=== PATIENT | female | born 1960 | race Caucasian/White ===

== ENCOUNTER 2016-04-02 11:32 | Emergency (ER) | payer OTHER, MEDICAID ==
--- NOTE | 2016-04-02 11:46 | CPEKG ---
Heart Rate: 80 RR Interval: 750 P-R Interval: 188 QRSD Interval: 92 QT Interval: 400 QTC Interval: 462 P [place]: 53 QRS [place]: 63 T Wave [place]: 23 EKG Severity - NORMAL ECG - EKG Impression: SINUS RHYTHM Electronically Signed By: Cherie Dave 02-Apr-2016 17:29:46
[2016-04-02 11:48] VITALS: RESP 18; TEMP 98.4
[2016-04-02] MEDS ORDERED: MAALOX/LIDO/HYOSC GI COCKTAIL 55 ML BOTTLE PO ONE (12:07)
--- NOTE | 2016-04-02 12:11 | EDPHY ---
H & P HPI/ROS: CHIEF COMPLAINT: Chest pain HISTORY OF PRESENT ILLNESS: 55-year-old female with a history of multiple personality disorder presents with chest pain. She has a history of chest discomfort related to GERD. Last night she ate dinner, and then approximately 30 minutes later she laid down to go to sleep. She experienced her typical GERD symptoms intermittently throughout the night, associated with some difficulty breathing. She also had discomfort related to her ITB band and took some Tylenol. She has no cardiac history. She currently has a prescription waiting for her at the pharmacy for Zantac. REVIEW OF SYSTEMS: Constitutional: No fever, no chills Eyes: No visual changes ENT: No sore throat Respiratory: No cough, no shortness of breath Cardiac: No chest pain Gastrointestinal: no vomiting, no abdominal pain Genitourinary: no dysuria Musculoskeletal: No leg pain or swelling Skin: No rash Neurological: No headache, no weakness Psychiatric: No depression Past Medical/Surgical History: Multiple personality disorder Social History: no recent alcohol Smoking Status: Never smoked Physical Exam: General Appearance: Alert, seems distracted by the multiple personalities Eyes: Pupils equal and round, no conjunctival pallor or injection ENT, Mouth: Mucous membranes moist Neck: Normal inspection Respiratory: left-sided chest wall tenderness, Lungs are clear to auscultation Cardiovascular: Regular rate and rhythm Gastrointestinal: Abdomen is soft and nontender Neurological: A&O, nonfocal exam Skin: Warm and dry, no rash Extremities: Nontender, no pedal edema Psychiatric: Mood and affect normal Constitutional: Initial Vital Signs Temperature (C) 36.9 C 04/02/16 11:32 Heart Rate 83 04/02/16 11:32 Respiratory Rate 18 04/02/16 11:32 Blood Pressure 139/91 H 04/02/16 11:32 O2 Sat (%) 94 04/02/16 11:32 O2 Delivery Mode Room Air Allergies/Adverse Reactions: hydrocodone [Hydrocodone] Allergy (Mild, Verified 01/13/16 13:50) heart races Penicillins Allergy (Mild, Verified 01/13/16 13:50) Rash clindamycin Allergy (Unknown, Verified 01/13/16 13:50) fluconazole Allergy (Unknown, Verified 01/13/16 13:50) metoclopramide Allergy (Unknown, Verified 01/13/16 13:50) Home Medications: Medication Instructions Recorded Hctz 09/07/14 Lyrica 09/07/14 Enalapril Maleate 07/22/15 Cyclobenzaprine [Flexeril 10 MG 10 mg PO TID PRN #10 tab 10/23/15 (*)] Ondansetron Odt [Zofran Odt] 4 mg PO Q6-8PRN PRN #8 tab 10/23/15 Cymbalta 04/02/16 Pantoprazole Sodium [Protonix 40mg 40 mg PO DAILY #20 tab 04/02/16 (*)] Medical Decision Making - Diagnostics EKG Interpretation: EKG interpreted by me reveals normal sinus rhythm, rate 80, no ST or T segment changes. ED Course/Re-evaluation: GI cocktail given with relief in pain. Protonix 40 mg orally given. The patient felt much better after these medications. I do not suspect acute coronary syndrome in this patient. Stat EKG reveals no evidence of ischemia. The patient's pain has been prolonged an Eugenio not exertional in nature. In addition, this similar to her prior GERD symptoms. Feel that she is safe and stable for discharge. After discharge, she returns to state that she has a lot of gas in her stomach and feels that she needs to have a bowel movement. I discussed these concerns with her. She will try [id number] medications. I do not feel that she needs to register again in the emergency department for further evaluation of these concerns. She will follow up with her primary care physician as a outpatient. Differential Diagnosis: Differential diagnosis includes though it is not limited to pneumonia, pneumothorax, pulmonary embolism, aortic dissection, pericarditis, acute coronary syndrome. - Data Points Laboratory Results: Laboratory Results 04/02/16 11:50 04/02/16 11:50 04/02/16 11:50 WBC 7.85 10^3/uL (3.80-9.50) RBC 5.66 H 10^6/uL (4.18-5.33) Hgb 16.3 g/dL (12.6-16.3) Hct 47.9 H % (38.0-47.0) MCV 84.6 fL (81.5-99.8) MCH 28.8 pg (27.9-34.1) MCHC 34.0 g/dL (32.4-36.7) RDW 13.3 % (11.5-15.2) Plt Count 345 10^3/uL (150-400) MPV 10.3 fL (8.7-11.7) Neut % (Auto) 70.4 % (39.3-74.2) Lymph % (Auto) 21.0 % (15.0-45.0) [place] % (Auto) 6.1 % (4.5-13.0) Eos % (Auto) 1.5 % (0.6-7.6) Baso % (Auto) 0.6 % (0.3-1.7) Nucleat RBC Rel Count 0.0 % (0.0-0.2) Absolute Neuts (auto) 5.52 10^3/uL (1.70-6.50) Absolute Lymphs (auto) 1.65 10^3/uL (1.00-3.00) Absolute Monos (auto) 0.48 10^3/uL (0.30-0.80) Absolute Eos (auto) 0.12 10^3/uL (0.03-0.40) Absolute Basos (auto) 0.05 10^3/uL (0.02-0.10) Absolute Nucleated RBC 0.00 10^3/uL (0-0.01) Immature Gran % 0.4 % (0.0-1.1) Immature Gran # 0.03 10^3/uL (0.00-0.10) Sodium 142 mEq/L (134-144) Potassium 3.7 mEq/L (3.5-5.2) Chloride 103 mEq/L (97-110) Carbon Dioxide 29 mEq/l (22-31) Anion Gap 10 mEq/L (8-16) BUN 17 mg/dL (7-23) Creatinine 0.8 mg/dL (0.6-1.0) Estimated GFR > 60 Glucose 102 H mg/dL (70-100) Calcium 9.7 mg/dL (8.5-10.4) Total Bilirubin 1.0 mg/dL (0.1-1.4) Conjugated Bilirubin 0.3 mg/dL (0.0-0.5) Unconjugated Bilirubin 0.7 mg/dL (0.0-1.1) AST 31 IU/L (14-46) ALT 44 IU/L (9-52) Alkaline Phosphatase 101 IU/L (38-126) Troponin I < 0.012 ng/mL (0-0.034) Total Protein 7.7 g/dL (6.3-8.2) Albumin 4.1 g/dL (3.5-5.0) Lipase 117.0 IU/L (23-300) Medications Given: Discontinued Medications Miscellaneous Medication (Gi Cocktail) 55 ml PO EDNOW ONE Stop: 04/02/16 12:08 Last Admin: 04/02/16 12:17 Dose: 55 ml Pantoprazole Sodium (Protonix) 40 mg PO EDNOW ONE Stop: 04/02/16 12:26 Last Admin: 04/02/16 12:33 Dose: 40 mg Departure - Departure Disposition: Home, Routine, Self-Care Clinical Impression: Reflux esophagitis Chest pain Qualifiers: Chest pain type: other chest pain Qualifier Code: (R07.89) Other chest pain Condition: Good Instructions: Pantoprazole (By mouth), Gastroesophageal Reflux Disease (ED) Additional Instructions: Avoid fatty and spicy foods. Avoid eating within 3-4 hours of going to bed. Follow up with GI, as previously suggested. Referrals: Otf Dukes MD, FACG [Medical Doctor] - As per Instructions Prescriptions: Pantoprazole Sodium [Protonix 40mg (*)] 40 mg PO DAILY #20 tab
[2016-04-02] MEDS ORDERED: PANTOPRAZOLE SODIUM 40 MG TAB PO ONE (12:25)
[2016-04-02 12:30] LABS: % IMMATURE GRANULYOCYTES 0.4 % (0.0-1.1); ABSOLUTE IMMATURE GRANULOCYTES 0.03 10^3/uL (0.00-0.10); ADD DIFF? NO; ADD MORPH? NO; ADD SCAN? NO; ATYPICAL LYMPHOCYTE FLAG 0 (0-99); FRAGMENT RBC FLAG 0 (0-99); HEMATOCRIT 47.9 % (38.0-47.0); HEMOGLOBIN 16.3 g/dL (12.6-16.3); LEFT SHIFT FLG 0 (0-99); LIPEMIA HEMOLYSIS FLAG 90 (0-99); MEAN CELL HEMOGLOBIN 28.8 pg (27.9-34.1); MEAN CELL VOLUME 84.6 fL (81.5-99.8); MEAN PLATELET VOLUME 10.3 fL (8.7-11.7); PLATELET CLUMPS FLAG 20 (0-99); PLATELET COUNT 345 10^3/uL (150-400); RED BLOOD CELL COUNT 5.66 10^6/uL (4.18-5.33); RED CELL DISTRIBUTION WIDTH 13.3 % (11.5-15.2)
[2016-04-02 12:39] LABS: ALANINE AMINOTRANSFERASE 44 IU/L (9-52); ALBUMIN 4.1 g/dL (3.5-5.0); ALKALINE PHOSPHATASE 101 IU/L (38-126); ANION GAP 10 mEq/L (8-16); ASPARTATE AMINOTRANSFERASE 31 IU/L (14-46); BILIRUBIN-CONJUGATED 0.3 mg/dL (0.0-0.5); BILIRUBIN-UNCONJUGATED 0.7 mg/dL (0.0-1.1); CALCIUM 9.7 mg/dL (8.5-10.4); CARBON DIOXIDE 29 mEq/l (22-31); CHLORIDE 103 mEq/L (97-110); CREATININE 0.8 mg/dL (0.6-1.0); GLOMERULAR FILTRATION RATE > 60; GLUCOSE 102 mg/dL (70-100); POTASSIUM 3.7 mEq/L (3.5-5.2); SODIUM 142 mEq/L (134-144); TOTAL PROTEIN 7.7 g/dL (6.3-8.2)
[2016-04-02 12:48] LABS: TROPONIN I < 0.012 ng/mL (0-0.034)
[2016-04-02 13:02] VITALS: BP 135/80; PULSE 85; O2SAT 95
== END 2016-04-02 13:03 | disposition home or self-care (01) ==
LOC: EDBD → EDUNIT#
DX: K21.0 Gastro-esophageal reflux disease with esophagitis (principal)

== ENCOUNTER 2016-05-05 07:48 | Emergency (ER) | payer OTHER, MEDICAID ==
[2016-05-05 08:07] VITALS: BP 154/93; PULSE 90; RESP 18; TEMP 98; O2SAT 96
--- NOTE | 2016-05-05 08:45 | UCPHY ---
H & P Time Seen by Provider: 05/05/16 07:54 Patient Type: Established HPI/ROS: 55-year-old female presents complaining of cough, fevers chills body aches and sore throat Review of systems General positive fevers and positive chills no weakness HEENT no eye pain no eye discharge. No eye redness, positive sore throat Respiratory positive cough no shortness of breath Cardiac no chest pain, no peripheral edema GI no abdominal pain, no diarrhea, no constipation, no nausea, no vomiting no flank pain, no hematuria, no dysuria Musculoskeletal no myalgias, no joint pain Heme no easy bruising, no easy bleeding Endo no polyuria, no polydipsia Skin no rashes, no pruritus Neuro no syncope, no dizziness, no headaches Psych is no suicidal ideation, no homicidal ideation Past Medical/Surgical History: Hypertension, GERD History of C diff following clindamycin use Allergy to penicillin Social History: Denies alcohol or drug use Smoking Status: Never smoked Physical Exam: 55-year-old female Alert and oriented nontoxic appearance, no acute distress afebrile Atraumatic normocephalic Extraocular muscles intact, anicteric Nares mild yellowish discharge Oropharynx positive erythema erythema positive tonsillar swelling no exudate no uvular deviation, tolerating own secretions Large amount of postnasal discharge behind uvula in posterior pharynx Neck supple no lymphadenopathy Lungs clear to auscultation bilaterally Heart regular rate and rhythm Abdomen normoactive bowel sounds soft nontender Extremities no cyanosis clubbing or edema Skin no rash Constitutional: Initial Vital Signs Temperature (C) 36.6 C 05/05/16 07:56 Heart Rate 90 05/05/16 07:56 Respiratory Rate 18 05/05/16 07:56 Blood Pressure 154/93 H 05/05/16 07:56 O2 Sat (%) 96 05/05/16 07:56 O2 Delivery Mode Room Air Allergies/Adverse Reactions: hydrocodone [Hydrocodone] Allergy (Mild, Verified 01/13/16 13:50) heart races Penicillins Allergy (Mild, Verified 01/13/16 13:50) Rash clindamycin Allergy (Unknown, Verified 01/13/16 13:50) fluconazole Allergy (Unknown, Verified 01/13/16 13:50) metoclopramide Allergy (Unknown, Verified 01/13/16 13:50) Home Medications: Medication Instructions Recorded Hctz 09/07/14 Lyrica 09/07/14 Enalapril Maleate 07/22/15 Cyclobenzaprine [Flexeril 10 MG 10 mg PO TID PRN #10 tab 10/23/15 (*)] Ondansetron Odt [Zofran Odt] 4 mg PO Q6-8PRN PRN #8 tab 10/23/15 Cymbalta 04/02/16 Pantoprazole Sodium [Protonix 40mg 40 mg PO DAILY #20 tab 04/02/16 (*)] AZITHROMYCIN [Z-PACK] 250 mg PO DAILY #6 tab 05/05/16 Esomeprazole Mag Trihydrate 05/05/16 MAG CARB/AL HYDROX/ALGINIC AC 05/05/16 Medical Decision Making ED Course/Re-evaluation: Patient seen and evaluated for sore throat, cold symptoms, body aches fevers and chills. She states she has a chronic dry mouth and course of voice secondary to medications she is on. Physical exam significant for erythematous throat with swelling, no stridor, tolerating own secretions Large amount of mucus in posterior pharynx from posterior nasal discharge Differential diagnosis considered Acute strep pharyngitis, pharyngitis, mononucleosis, bronchitis, pneumonia, influenza Rapid strep negative Influenza negative Impression Acute pharyngitis Plan A Zithromax Follow-up PCP - Data Points Laboratory Results: 05/05/16 05/05/16 05/05/16 Unknown 08:40 08:00 Influenza Typ A,B (DFA) NEGATIVE FOR FLU (NEGATIVE) Group A Strep Screen NEGATIVE (NEGATIVE) Group A Strep DNA NEGATIVE (NEGATIVE) Departure - Departure Disposition: Home, Routine, Self-Care Clinical Impression: Acute pharyngitis Condition: Good Instructions: Pharyngitis (ED), Cold Symptoms (ED) Additional Instructions: Follow-up with your primary care physician in 1-3 days Referrals: Victoria Armendariz MD [Primary Care Provider] - As per Instructions Prescriptions: AZITHROMYCIN [Z-PACK] 250 mg PO DAILY #6 tab - PQRS PQRS Measurement: na
== END 2016-05-05 09:13 | disposition home or self-care (01) ==
LOC: CED 07:48
DX: J02.9 Acute pharyngitis, unspecified (principal); Z88.0 Allergy status to penicillin
CPT/HCPCS: 87400-PO; 87880-PO; G0463-PO

== ENCOUNTER 2016-05-05 22:38 | Emergency (ER) | payer OTHER, MEDICAID ==
[2016-05-05 22:56] VITALS: BP 132/95; PULSE 89; RESP 16; TEMP 99; O2SAT 94
[2016-05-05] MEDS ORDERED: FLUORESCEIN SODIUM 1 MG STRIP OP ONE (23:17)
[2016-05-05] MEDS ORDERED: PROPARACAINE 0.5% 15 ML OPHT DROP ONE (23:18)
[2016-05-05] MEDS ORDERED: PROPARACAINE 0.5% 15 ML OPHT DROP OP ONE (23:18)
--- NOTE | 2016-05-05 23:34 | EDPHY ---
H & P Stated Complaint: Mucky eye several hours, eye is itchy. HPI/ROS: HPI CHIEF COMPLAINT: Right eye drainage, conjunctival injection, pain HISTORY OF PRESENT ILLNESS: This patient very pleasant 55-year-old female she presents emergency room with eye drainage yellow crusting and pain. Patient states that around 9:00 p.m. this evening she developed drainage at the corner of her eye yellow crusting. Patient tells me that she got some steroid eyedrops from her sales enablement analyst that was left over and some liquid tears that she was placing in her right eye she noticed that there was lot of drainage and crusting of her right eye so she took a Q-tip and stuck it in her right eye and rubbed her eye. She now has worsening right eye pain. She was trying to get the yellow crusting drainage out of her eye. She denies photophobia or loss of vision she denies blurry vision. She does tell me that her right eye hurts her. She denies fever. She does not have pain with extraocular movement. There is no proptosis. She tells me she has had upper respiratory tract infection is been recently ill. Past Medical History: Hypertension, hyperlipidemia Past Surgical History: No recent surgery Social History: denies daily use of drugs alcohol tobacco products Family History: noncontributory ROS REVIEW OF SYSTEMS: A comprehensive 10 point review of systems is otherwise negative aside from elements mentioned in the history of present illness. Exam Constitutional triage nursing summary reviewed, vital signs reviewed, awake/ alert. Eyes normal conjunctivae and sclera, EOMI, PERRLA. HENT left eye normal. Right eye: conjunctiva is injected, there is yellow drainage at the medial canthus. Yellow crusting on the eyelids. Extraocular movement intact. Pupil equal round react to light. No anterior chamber flare. No proptosis. No chemosis. On fluorescein there is no uptake. There is no evidence of corneal abrasion or conjunctival abrasion. moist mucus membranes, no epistaxis, neck supple/ no meningismus, no raccoon eyes. Respiratory clear to auscultation bilaterally, normal breath sounds, no respiratory distress, no wheezing. Cardiovascular rate normal, regular rhythm, no murmur, no edema, distal pulses normal. Gastrointestinal soft, non-tender, no rebound, no guarding, normal bowel sounds, no distension, no pulsatile mass. Genitourinary no CVA tenderness. Musculoskeletal no midline vertebral tenderness, full range of motion, no calf swelling, no tenderness of extremities, no meningismus, good pulses, neurovascularly intact. Skin pink, warm, & dry, no rash, skin atraumatic. Neurologic awake, alert and oriented x 3, AAOx3, moves all 4 extremities equally, motor intact, sensory intact, CN II-XII intact, normal cerebellar, normal vision, normal speech. Psychiatric normal mood/affect. Heme/Lymph/Immune no lymphadenopathy. Differential Diagnosis: Includes but is not limited to in a particular order, bacterial conjunctivitis, viral conjunctivitis, upper respiratory tract infection, iritis, corneal abrasion, conjunctival abrasion or tear Medical Decision Making: This patient appears well nontoxic no acute distress does have a recent upper respiratory tract infection has a right eye with conjunctival injection with medial canthus drainage and discharge yellow in nature. There is no fluorescein uptake on exam. No evidence of periorbital cellulitis or septal cellulitis. Patient is an obvious conjunctivitis most likely viral given upper respiratory tract infection however will treat for bacterial infection with antibiotic eyedrops. She will need close ophthalmology follow-up she understands follow-up with her sales enablement analyst tomorrow. Return emergency room if there is any worsening symptoms. No evidence of glaucoma. This is clinically appears to be a conjunctivitis viral versus bacterial. Source: Patient - Personal History Current Tetanus/Diphtheria Vaccine: No Current Tetanus Diphtheria and Acellular Pertussis (TDAP): No Tetanus Vaccine Date: 2005 - Medical/Surgical History Hx Asthma: No Hx Chronic Respiratory Disease: No Hx Diabetes: No Hx Cardiac Disease: No Hx Renal Disease: No Hx Cirrhosis: No Hx Alcoholism: No Hx HIV/AIDS: No Hx Splenectomy or Spleen Trauma: No Other PMH: Fibromyalgia, HTN, TONSILECTOMY, Chronic pain on opiates, dissacossiative identity disorder. PS-refuses to state more. - Social History Smoking Status: Never smoked Constitutional: Initial Vital Signs Temperature (C) 37.2 C 05/05/16 22:50 Heart Rate 89 05/05/16 22:50 Respiratory Rate 16 05/05/16 22:50 Blood Pressure 132/95 H 05/05/16 22:50 O2 Sat (%) 94 05/05/16 22:50 O2 Delivery Mode Room Air Allergies/Adverse Reactions: hydrocodone [Hydrocodone] Allergy (Mild, Verified 05/05/16 22:56) heart races Penicillins Allergy (Mild, Verified 05/05/16 22:56) Rash clindamycin Allergy (Unknown, Verified 05/05/16 22:56) fluconazole Allergy (Unknown, Verified 05/05/16 22:56) metoclopramide Allergy (Unknown, Verified 05/05/16 22:56) Home Medications: Medication Instructions Recorded Hctz 09/07/14 Lyrica 09/07/14 Enalapril Maleate 07/22/15 Cyclobenzaprine [Flexeril 10 MG 10 mg PO TID PRN #10 tab 10/23/15 (*)] Ondansetron Odt [Zofran Odt] 4 mg PO Q6-8PRN PRN #8 tab 10/23/15 Cymbalta 04/02/16 Pantoprazole Sodium [Protonix 40mg 40 mg PO DAILY #20 tab 04/02/16 (*)] AZITHROMYCIN [Z-PACK] 250 mg PO DAILY #6 tab 05/05/16 Esomeprazole Mag Trihydrate 05/05/16 MAG CARB/AL HYDROX/ALGINIC AC 05/05/16 Ofloxacin 0.3% [Ocuflox 0.3%] 2 drops OP QID #1 opht.btl 05/05/16 Medical Decision Making - Data Points Medications Given: Discontinued Medications Proparacaine HCl (Alcaine 0.5%) 2 drops OP EDNOW ONE Stop: 05/05/16 23:19 Last Admin: 05/05/16 23:24 Dose: 2 drops Departure - Departure Disposition: Home, Routine, Self-Care Clinical Impression: Conjunctivitis Qualifiers: Conjunctivitis type: acute Acute conjunctivitis type: unspecified Laterality: right Qualified Code(s): H10.31 - Unspecified acute conjunctivitis, right eye Condition: Good Instructions: Conjunctivitis (ED) Referrals: Victoria Armendariz MD [Primary Care Provider] - As per Instructions Trino Bowling MD [Medical Doctor] - As per Instructions Prescriptions: Ofloxacin 0.3% [Ocuflox 0.3%] 2 drops OP QID #1 opht.btl
[2016-05-06] MEDS ORDERED: OFLOXACIN 0.3% SOLN PREPACK OPHT.BTL TAKEHOME ONE (00:30)
== END 2016-05-06 | disposition home or self-care (01) ==
DX: H10.31 Unspecified acute conjunctivitis, right eye (principal); I10 Essential (primary) hypertension

== ENCOUNTER → 2016-05-07 | Outpatient (CLI) | payer OTHER, MEDICAID | LOC: FIMAGING 10:51 | PROVIDERS: ATTEND Family Medicine | DX: Z12.31 Encounter for screening mammogram for malignant neoplasm of breast (principal); Z80.3 Family history of malignant neoplasm of breast | CPT/HCPCS: G0202 ==

== ENCOUNTER 2016-05-15 15:05 | Inpatient (IN) | payer OTHER, MEDICAID ==
--- NOTE | 2016-05-15 15:24 | CPEKG ---
Heart Rate: 120 RR Interval: 500 P-R Interval: 160 QRSD Interval: 82 QT Interval: 328 QTC Interval: 464 P [place]: 47 QRS [place]: 41 T Wave [place]: 21 EKG Severity - OTHERWISE NORMAL ECG - EKG Impression: SINUS TACHYCARDIA Electronically Signed By: Jenna Larose 15-May-2016 23:10:09
[2016-05-15] MEDS ORDERED: LORazepam 2 MG/ML INJ IVP ONE (15:41)
[2016-05-15] MEDS ORDERED: NS 1,000 ML IV ONE (15:41)
--- NOTE | 2016-05-15 15:41 | EDPHY ---
H & P Time Seen by Provider: 05/15/16 15:12 HPI/ROS: CHIEF COMPLAINT: "I am having a panic attack" HISTORY OF PRESENT ILLNESS: Patient is a 55-year-old female who presents to the emergency department feeling as though she is having a panic attack. Patient states she had a bad nightmare last night. She woke this morning and wanted to calm herself by gardening. When she when outside she met her neighbor who was having depression and suicidal thoughts. She was able to convince the neighbor to be evaluated. After her neighbor left she went to Garden and had sudden onset of anxiety. She developed shortness of breath and palpitations. She felt lightheaded and slightly dizzy. She felt as though "everything was too much." She denies chest pain. No recent leg pain or swelling. No travel. Patient recently got over a cold. She was taking albuterol for "bronchitis" and she took a treatment this morning. No recent change in her medications. REVIEW OF SYSTEMS: My complete review of systems is negative except as mentioned in the HPI. Past Medical/Surgical History: Includes hypertension, hyperlipidemia, bronchitis Past surgical history: No recent surgery Social history: Denies drugs, alcohol or smoking Smoking Status: Never smoked Physical Exam: Vitals noted. Tachycardia 122. GENERAL: Well-appearing, in no acute distress, alert. HEENT: Eyes normal to inspection, normal pharynx, no signs of dehydration. NECK: No thyromegaly, no lymphadenopathy, supple. RESPIRATORY: Clear to auscultation bilaterally, no rales, rhonchi or wheezing. CVS: tachycardia with regular rhythm, no rubs, murmurs, or gallops. ABDOMEN: Soft, nontender, nondistended, no organomegaly. BACK: Normal to inspection, no CVA tenderness. SKIN: Normal color, no rash, warm, dry. No pallor. EXTREMITIES: No pedal edema, no calf tenderness, no Homans sign or cords, no joint swelling. NEURO/PSYCH: Alert and oriented x3, normal mood and affect, normal motor sensory exam. No obvious cranial nerve deficit. Constitutional: Initial Vital Signs Temperature (C) 37.2 C 05/15/16 15:15 Heart Rate 122 H 05/15/16 15:15 Respiratory Rate 24 H 05/15/16 15:15 Blood Pressure 113/86 H 05/15/16 15:15 O2 Sat (%) 93 05/15/16 15:15 O2 Delivery Mode Nasal Cannula O2 (L/minute) 2 Allergies/Adverse Reactions: hydrocodone [Hydrocodone] Allergy (Mild, Verified 05/05/16 22:56) heart races Penicillins Allergy (Mild, Verified 05/05/16 22:56) Rash clindamycin Allergy (Unknown, Verified 05/05/16 22:56) fluconazole Allergy (Unknown, Verified 05/05/16 22:56) metoclopramide Allergy (Unknown, Verified 05/05/16 22:56) Home Medications: Medication Instructions Recorded Albuterol [Proventil Inhaler HFA 1 - 2 puffs IH Q4H PRN 05/15/16 (*)] DULoxetine [Cymbalta 30 MG (*)] 30 mg PO HS 05/15/16 DULoxetine [Cymbalta 60 MG (*)] 60 mg PO HS 05/15/16 Enalapril Maleate [Vasotec 5 MG 5 mg PO DAILY 05/15/16 (*)] Esomeprazole Magnesium 40 mg PO DAILY 05/15/16 Estradiol [Estrace Vaginal (*)] 1 cairra VG DAILY PRN 05/15/16 Hydrochlorothiazide [HCTZ (*)] 25 mg PO DAILY 05/15/16 Pregabalin [Lyrica] 200 mg PO HS 05/15/16 Psyllium Husk (with Sugar) 1 each PO DAILY 05/15/16 [Metamucil Packet] Vitamin B Complex [B Complex] 1 each PO DAILY 05/15/16 Medical Decision Making ED Course/Re-evaluation: In the emergency department I discussed possible etiologies with the patient. An IV was placed. Laboratory studies, chest x-ray and EKG were ordered. The patient was given normal saline 1 L for hydration. She was given Ativan 1 mg IV for anxiety. EKG shows sinus tachycardia at 120, normal axis, normal intervals]. There are no ST or T-wave abnormalities. 15 40: I was called to the patient's room because she was in a rapid heart rate. When the room she was noted to be in supraventricular tachycardia at 201. Repeat EKG was ordered. Patient was mentating normally and answer my questions appropriately. She had no chest pain or worsening shortness of breath with her new rhythm. EKG had 1553 showed supraventricular tachycardia 194. There is mild ST depression. I discussed the plan with the patient and answered her questions. She was given adenosine 12 mg IV push. I reviewed the strip was in the room during administration. The patient converted to a sinus tachycardia. Repeat EKG at 357. showed sinus tachycardia at 110. No ST or T-wave abnormalities. The patient was noted to have an elevated troponin at 0.133. Patient also had an elevated D-dimer 0.78. I discussed these results with the patient answered all her questions. Due to the elevated D-dimer and her episode of SVT a CT angiogram was ordered. The patient consented. I paged hospital service for further evaluation and admission. CT angio: Please refer the dictated report by Dr. Ronald Mcdowell. No pulmonary embolus. Small hiatal hernia. I discussed the results with patient. I answered all her questions. Differential Diagnosis: My differential includes but is not limited to anxiety, thyroid disease, electrolyte abnormality, sugar abnormality, ACS, acute PR, dehydration, SVT, ventricular tachycardia, dysrhythmia Critical Care Time: Patient required 35 minutes of critical care time. This was exclusive any unbundled procedure. This was due to the significant time spent at the patient' s bedside, multiple interpretations of EKGs and rhythms. - Data Points Laboratory Results: Laboratory Results 05/15/16 15:35 05/15/16 15:35 05/15/16 05/15/16 05/15/16 15:35 15:35 15:35 WBC RBC Hgb Hct MCV MCH MCHC RDW Plt Count MPV Neut % (Auto) Lymph % (Auto) Rich % (Auto) Eos % (Auto) Baso % (Auto) Nucleat RBC Rel Count Absolute Neuts (auto) Absolute Lymphs (auto) Absolute Monos (auto) Absolute Eos (auto) Absolute Basos (auto) Absolute Nucleated RBC Immature Gran % Immature Gran # D-Dimer 0.78 ug/mLFEU H ug/mLFEU (0.00-0.50) Sodium 143 mEq/L mEq/L (134-144) Potassium 3.7 mEq/L mEq/L (3.5-5.2) Chloride 105 mEq/L mEq/L (97-110) Carbon Dioxide 23 mEq/l mEq/l (22-31) Anion Gap 15 mEq/L mEq/L (8-16) BUN 22 mg/dL mg/dL (7-23) Creatinine 0.9 mg/dL mg/dL (0.6-1.0) Estimated GFR > 60 Glucose 209 mg/dL H mg/dL (70-100) Calcium 9.9 mg/dL mg/dL (8.5-10.4) Phosphorus 1.9 mg/dL L mg/dL (2.5-4.5) Magnesium 2.3 mg/dL mg/dL (1.6-2.3) Troponin I 0.134 ng/mL H ng/mL 0.133 ng/mL H ng/mL (0-0.034) (0-0.034) TSH Pending 05/15/16 15:35 WBC 13.28 10^3/uL H 10^3/uL (3.80-9.50) RBC 5.62 10^6/uL H 10^6/uL (4.18-5.33) Hgb 16.6 g/dL H g/dL (12.6-16.3) Hct 48.3 % H % (38.0-47.0) MCV 85.9 fL fL (81.5-99.8) MCH 29.5 pg pg (27.9-34.1) MCHC 34.4 g/dL g/dL (32.4-36.7) RDW 13.4 % % (11.5-15.2) Plt Count 438 10^3/uL H 10^3/uL (150-400) MPV 10.5 fL fL (8.7-11.7) Neut % (Auto) 76.2 % H % (39.3-74.2) Lymph % (Auto) 16.9 % % (15.0-45.0) Rich % (Auto) 4.3 % L % (4.5-13.0) Eos % (Auto) 1.3 % % (0.6-7.6) Baso % (Auto) 0.5 % % (0.3-1.7) Nucleat RBC Rel Count 0.0 % % (0.0-0.2) Absolute Neuts (auto) 10.13 10^3/uL H 10^3/uL (1.70-6.50) Absolute Lymphs (auto) 2.24 10^3/uL 10^3/uL (1.00-3.00) Absolute Monos (auto) 0.57 10^3/uL 10^3/uL (0.30-0.80) Absolute Eos (auto) 0.17 10^3/uL 10^3/uL (0.03-0.40) Absolute Basos (auto) 0.07 10^3/uL 10^3/uL (0.02-0.10) Absolute Nucleated RBC 0.00 10^3/uL 10^3/uL (0-0.01) Immature Gran % 0.8 % % (0.0-1.1) Immature Gran # 0.10 10^3/uL 10^3/uL (0.00-0.10) D-Dimer Sodium Potassium Chloride Carbon Dioxide Anion Gap BUN Creatinine Estimated GFR Glucose Calcium Phosphorus Magnesium Troponin I TSH Medications Given: Discontinued Medications Adenosine (Adenosine) 12 mg IVP EDNOW ONE Stop: 05/15/16 15:51 Last Admin: 05/15/16 15:50 Dose: 12 mg Sodium Chloride (Ns) 1,000 mls @ 0 mls/hr IV ONCE ONE PRN Reason: Wide Open Stop: 05/15/16 15:42 Last Admin: 05/15/16 16:06 Dose: 1,000 mls Lorazepam (Ativan Injection) 1 mg IVP EDNOW ONE Stop: 05/15/16 15:42 Last Admin: 05/15/16 16:06 Dose: 0.5 mg Ondansetron HCl (Zofran) 4 mg IVP EDNOW ONE Stop: 05/15/16 16:25 Last Admin: 05/15/16 16:48 Dose: 4 mg Departure - Departure Disposition: [facility] Acute Clinical Impression: SVT (supraventricular tachycardia), Elevated troponin Condition: Good
[2016-05-15 15:45] LABS: % IMMATURE GRANULYOCYTES 0.8 % (0.0-1.1); ADD DIFF? NO; ADD MORPH? NO; ADD SCAN? NO; ATYPICAL LYMPHOCYTE FLAG 10 (0-99); FRAGMENT RBC FLAG 0 (0-99); HEMATOCRIT 48.3 % (38.0-47.0); HEMOGLOBIN 16.6 g/dL (12.6-16.3); LEFT SHIFT FLG 0 (0-99); LIPEMIA HEMOLYSIS FLAG 90 (0-99); MEAN CELL HEMOGLOBIN 29.5 pg (27.9-34.1); MEAN CELL HEMOGLOBIN CONCENTR. 34.4 g/dL (32.4-36.7); MEAN CELL VOLUME 85.9 fL (81.5-99.8); MEAN PLATELET VOLUME 10.5 fL (8.7-11.7); PLATELET CLUMPS FLAG 0 (0-99); PLATELET COUNT 438 10^3/uL (150-400); RED BLOOD CELL COUNT 5.62 10^6/uL (4.18-5.33); RED CELL DISTRIBUTION WIDTH 13.4 % (11.5-15.2)
[2016-05-15] MEDS ORDERED: ADENOSINE 6 MG/2 ML VIAL ONE (15:49)
[2016-05-15] MEDS ORDERED: ADENOSINE 6 MG/2 ML VIAL IVP ONE (15:50)
--- NOTE | 2016-05-15 15:55 | CPEKG ---
Heart Rate: 194 RR Interval: 309 QRSD Interval: 80 QT Interval: 264 QTC Interval: 475 P [place]: 0 QRS [place]: 36 T Wave [place]: 5 EKG Severity - ABNORMAL ECG - EKG Impression: SUPRAVENTRICULAR TACHYCARDIA EKG Impression: ST DEPRESSION, PROBABLY RATE RELATED Electronically Signed By: Jenna Larose 15-May-2016 23:10:09
[2016-05-15 15:58] LABS: ANION GAP 15 mEq/L (8-16); CALCIUM 9.9 mg/dL (8.5-10.4); CARBON DIOXIDE 23 mEq/l (22-31); CHLORIDE 105 mEq/L (97-110); CREATININE 0.9 mg/dL (0.6-1.0); GLOMERULAR FILTRATION RATE > 60; GLUCOSE 209 mg/dL (70-100); POTASSIUM 3.7 mEq/L (3.5-5.2); SODIUM 143 mEq/L (134-144)
--- NOTE | 2016-05-15 16:03 | CPEKG ---
Heart Rate: 110 RR Interval: 545 P-R Interval: 184 QRSD Interval: 90 QT Interval: 340 QTC Interval: 461 P [place]: 43 QRS [place]: 65 T Wave [place]: 18 EKG Severity - OTHERWISE NORMAL ECG - EKG Impression: SINUS TACHYCARDIA Electronically Signed By: Jenna Larose 15-May-2016 23:10:09
[2016-05-15 16:10] LABS: TROPONIN I 0.133 ng/mL (0-0.034)
[2016-05-15] MEDS ORDERED: ONDANSETRON 4 MG/2 ML VIAL IVP ONE (16:24)
[2016-05-15] MEDS ORDERED: ONDANSETRON 4 MG/2 ML VIAL ONE (16:26)
[2016-05-15] MEDS ORDERED: IOPAMIDOL (ISOVUE 370) 100 ML BTL IV ONE (17:16)
[2016-05-15] MEDS ORDERED: ACETAMINOPHEN 325 MG TAB PO PRN (17:45)
[2016-05-15] MEDS ORDERED: ONDANSETRON DISINTEGRATING 4 MG TAB PO PRN (17:45)
[2016-05-15] MEDS ORDERED: ONDANSETRON 4 MG/2 ML VIAL IVP PRN (17:45)
[2016-05-15 18:15] LABS: MAGNESIUM 2.3 mg/dL (1.6-2.3)
[2016-05-15] MEDS ORDERED: LORazepam 0.5 MG TAB PO PRN (18:22)
[2016-05-15] MEDS ORDERED: ESTRADIOL 42.5 GM CRTUBE VG PRN (18:22)
[2016-05-15 18:27] LABS: TROPONIN I 0.134 ng/mL (0-0.034)
--- NOTE | 2016-05-15 18:55 | GHP ---
[f rep st] HISTORY AND PHYSICAL DATE OF ADMISSION: 05/15/2016 CHIEF COMPLAINT: Dizziness/SVT. HISTORY OF PRESENT ILLNESS: This is a 55-year-old female, who was initially brought in to the emerg ency department by EMS for anxiety. She notes that she was speaking with her neighbor who was uriel alvarez. She eventually got her neighbor help; however, this triggered some issues for her. She became dizzy, lightheaded, nauseous. She was having palpitations. She tried to calm herself by walking a round her house. She felt as though she were having an anxiety attack. She called the crisis kirill major who called which brought her into the emergency department. In the emergency department, she was initially in sinus tachycardia about 120 beats per minute. She went into SVT at about 200 beats per minute. She received adenosine and converted back to sinus rh ythm. She is unclear if her sensations in the emergency department were similar to what she was exp eriencing earlier today. She notes that she has become recently more short of breath with ambulation. She also notes that catherine baeza is supposed to see GI due to some what she describes as GERD. This has been going on for some amrta baeza. This is described as a burning sensation in her chest. PAST MEDICAL/SURGICAL HISTORY: 1. Hypertension. 2. PTSD. MEDICATIONS: Please see medication reconciliation. ALLERGIES: Hydrocodone, penicillin, clindamycin, fluconazole, metoclopramide. FAMILY HISTORY: Multiple family members have coronary artery disease. SOCIAL HISTORY: She occasionally drinks alcohol. She does not smoke. REVIEW OF SYSTEMS: A 10-point review of systems is conducted and is negative except per HPI. PHYSICAL EXAM: VITAL SIGNS: Blood pressure 118/84, heart rate 105, respiration rate 18, saturating 92% on room air. Temperature is 37.2. GENERAL: The patient is a pleasant female who appears mild ly anxious. Otherwise, in no acute distress. HEENT: Shows her to be normocephalic, atraumatic. C ARDIOVASCULAR: Shows her to be borderline tachycardic. There are no murmurs, rubs, or gallops. PU LMONARY: Lungs clear to auscultation bilaterally. ABDOMEN: Soft, nontender, nondistended. SKIN: No rash. : Exam shows no Hutchison. NEUROLOGIC: Shows her to be alert and oriented x3. She is mo ving all extremities. PSYCHIATRIC: Exam shows normal mood and affect. LABS: White count is 13.2, hemoglobin 16. D-dimer 0.78. Basic metabolic panel is normal. Troponi n 0.133. Phosphorus is 1.9. DATA: 1. I discussed this with Dr. Larose. Will plan to admit to observation. 2. CT angio shows mild bronchitis, a small hiatal hernia. 3. Chest x-ray, which I personally reviewed and interpreted, shows nothing acute. 4. I reviewed her 3 EKGs which she had in the emergency department. The first shows sinus tachycar homero with no acute ischemic changes. The next shows SVT with some ST depressions. The next shows si nus tachycardia with no acute ischemic changes. IMPRESSION AND PLAN: This is a 55-year-old female, who presented with anxiety, went into supraventr icular tachycardia in the ED. 1. Supraventricular tachycardia: She has mild troponin elevation at 0.1. Unsure if this is rate r elated though. The troponin rise would be quick after this episode of supraventricular tachycardia. She may have been in SVT earlier today, this is unclear. Regardless, will admit her to observatio n, trend her troponins, get an echocardiogram. I have ordered a nuclear stress test. If her tropon ins do not elevate significantly beyond what they are now I would proceed with this. Otherwise, wou ld involve Cardiology for a catheterization. She has been having atypical chest pain for some time. 2. Gastroesophageal reflux disease: She does have a hiatal hernia seen on her CT scan. We will co ntinue her reflux medications. 3. Post-traumatic stress disorder: Will continue her home medications. /[id number]/MODL
[2016-05-15] MEDS ORDERED: METOPROLOL TARTRATE 25 MG TAB PO SCH (21:00)
[2016-05-15] MEDS: ALBUTEROL 60 PUFFS/8 GM MDI IH PRN (21:06)
[2016-05-15] MEDS: DULoxetine 30 MG CAP PO SCH (23:04)
[2016-05-15] MEDS: DULoxetine 60 MG CAP PO SCH (23:04)
[2016-05-15] MEDS: PREGABALIN 100 MG CAP PO SCH (23:04)
[2016-05-15] MEDS: ASPIRIN EC 325 MG TAB PO SCH (23:08)
[2016-05-16] MEDS: ALBUTEROL 60 PUFFS/8 GM MDI IH PRN ×3 (01:18→20:42)
[2016-05-16] MEDS: PANTOPRAZOLE SODIUM 40 MG TAB PO SCH ×2 (01:46→03:28)
[2016-05-16 06:16] LABS: % IMMATURE GRANULYOCYTES 0.7 % (0.0-1.1); ABSOLUTE IMMATURE GRANULOCYTES 0.06 10^3/uL (0.00-0.10); ADD DIFF? NO; ADD MORPH? NO; ADD SCAN? NO; ATYPICAL LYMPHOCYTE FLAG 10 (0-99); FRAGMENT RBC FLAG 0 (0-99); HEMATOCRIT 42.5 % (38.0-47.0); HEMOGLOBIN 13.9 g/dL (12.6-16.3); LEFT SHIFT FLG 0 (0-99); LIPEMIA HEMOLYSIS FLAG 80 (0-99); MEAN CELL HEMOGLOBIN 28.5 pg (27.9-34.1); MEAN CELL HEMOGLOBIN CONCENTR. 32.7 g/dL (32.4-36.7); MEAN CELL VOLUME 87.1 fL (81.5-99.8); MEAN PLATELET VOLUME 10.1 fL (8.7-11.7); PLATELET CLUMPS FLAG 0 (0-99); PLATELET COUNT 348 10^3/uL (150-400); RED BLOOD CELL COUNT 4.88 10^6/uL (4.18-5.33); RED CELL DISTRIBUTION WIDTH 13.6 % (11.5-15.2)
[2016-05-16 06:39] LABS: ANION GAP 9 mEq/L (8-16); CALCIUM 8.9 mg/dL (8.5-10.4); CARBON DIOXIDE 25 mEq/l (22-31); CHLORIDE 105 mEq/L (97-110); CREATININE 0.7 mg/dL (0.6-1.0); GLOMERULAR FILTRATION RATE > 60; GLUCOSE 107 mg/dL (70-100); SODIUM 139 mEq/L (134-144)
[2016-05-16 06:49] LABS: TROPONIN I 0.448 ng/mL (0-0.034)
[2016-05-16] MEDS ORDERED: REGADENOSON 0.4 MG/5 ML SYR IVP ONE (10:13)
[2016-05-16] MEDS: ENALAPRIL MALEATE 5 MG TAB PO SCH (10:35)
[2016-05-16] MEDS: HYDROCHLOROTHIAZIDE 25 MG TAB PO SCH (10:36)
[2016-05-16] MEDS: ENOXAPARIN 40 MG/0.4 ML SYR SC SCH (10:38)
--- NOTE | 2016-05-16 11:22 | CPIP ---
[f rep st] INVASIVE CARDIAC PROCEDURE DATE OF PROCEDURE: 05/16/2016 PROCEDURE: Lexiscan nuclear stress test. INDICATIONS: Chest pain and SVT. DESCRIPTION OF PROCEDURE: Informed consent was obtained. The patient had not had caffeine for grea ter than 24 hours. She received Lexiscan and radioisotope per standard protocol. She had continuou s EKG monitoring and blood pressure and oximetry monitoring per protocol. COMPLICATIONS: Small amount of IV infiltration. FINDINGS: Resting EKG showed sinus rhythm. Resting blood pressure 127/87 with heart rate of 67, ox ygen saturation 96% on room air. With stress, there were no ST changes. Occasional PACs. Peak inf usion blood pressure was 136/91 with a heart rate of 64. CONCLUSIONS: No EKG changes with Lexiscan infusion. Small IV infiltration. The IV will be changed . Nuclear images are pending. Copy requested to: Primary Care /[id number]/MODL
[2016-05-16] MEDS: PSYLLIUM METAMUCIL 1 PKT PO SCH (13:07)
[2016-05-16] MEDS: VITAMIN B COMPLEX 1 EA CAP/TAB PO SCH (13:12)
--- NOTE | 2016-05-16 14:07 | ECHO ---
[id number] + + [address] : : [place] [address] : : [phone] + Adult Echocardiographic Report + -------+ :Name: JUAN BENITO LStudy Date: 05/16/2016 12:32 PM : : Hospital Admission Number: [id number] Locati on: 217: :: 1960 Gender: Female Height: 65 in : :Age: 55 yrs Race: WH Weight: 172 lb : :Reason For Study: Eval LV Fx : : BSA: 1.9 meter s2 : :History: SVT, HTN : + -------+ MMode/2D Measurements \T\ Calculations IVSd: 0.98 cm LVIDd: 4.1 cm FS: 31.9 % Ao root diam: 3.2 cm LVPWd: 1.2 cm LVIDs: 2.8 cm EDV(Teich): 72.9 ml ACS: 1.6 cm ESV(Teich): 28.8 ml EF(Teich): 60.5 % Normal Measurement Values: + + :LVIDd (3.5-5.7cm) IVSd (0.6-1.1cm) LVPWd (0.6-1.1cm) Aortic Root (2.0-3.7cm)Left Atrium (1.5-4.0cm): :LV Vol(d) (76-115ml) LV Vol(s) (29-48ml) Ejec Fraction (50-65%)PV Rubio (0.6- 1.2m/s) TV Rubio (0.4-1.0m/s) : :MV E Rubio (0.8-1.0m/s)MV A Rubio (0.3-1.0m/s)LVOT Rubio (0.7-1.2m/s) Asc Ao Rubio ( 0.9-1.8m/s) : + + Doppler Measurements \T\ Calculations MV E max rubio: Ao V2 max: LV V1 max: PA V2 max: 81.4 cm/sec 120.8 cm/sec 85.9 cm/sec 90.9 cm/sec MV A max rubio: Ao max P.8 mmHgLV V1 max PG: PA max P.8 cm/sec 3.0 mmHg 3.3 mmHg MV E/A: 0.90 TR max rubio: 219.9 cm/sec TR max P.3 mmHg RAP systole: 5.0 mmHg RVSP(TR): 24.3 mmHg Left Ventricle The left ventricle is normal in size. There is mild concentric left ventricular hypertrophy. The left ventricular ejection fraction is normal. There is Doppler evidence for diastolic dysfunction. Ejection Fraction = 62%. The left ventricular wall motion is normal. Right Ventricle The right ventricle is normal in size and function. Atria The left atrial size is normal. Right atrial size is normal. Mitral Valve The mitral valve is normal in structure and function. There is no evidence of mitral valve prolapse. There is no mitral valve stenosis. There is no mitral regurgitation noted. Tricuspid Valve Normal tricuspid valve. There is trace tricuspid regurgitation. Right ventricular systolic pressure is normal. Aortic Valve The aortic valve is normal in structure and function. There is no aortic stenosis. There is no aortic insufficiency. Pulmonic Valve The pulmonic valve is normal in structure and function. There is no pulmonic valvular regurgitation. Great Vessels The aortic root is normal size. Pericardium/Pleural There is no pericardial effusion. Conclusion A complete two-dimensional transthoracic echocardiogram was performed (2D, M-mode, Doppler and color flow Doppler). There is mild concentric left ventricular hypertrophy. The left ventricular ejection fraction is normal. There is Doppler evidence for diastolic dysfunction. Ejection Fraction = 62%. The left ventricular wall motion is normal. The mitral valve is normal in structure and function. There is trace tricuspid regurgitation. Right ventricular systolic pressure is normal. The aortic valve is normal in structure and function. There is no pericardial effusion. No prior echo Final Reading Physician: Dr Jocelyne Rivera electronically signed on 05/16/2016 02:05 PM Ordering Physician: Abhinav Apple Performed By: Akash Evans, CHARCS
--- NOTE | 2016-05-16 16:00 | HOSPPROG ---
Hospitalist Progress Note Assessment/Plan: 55-year-old female admitted with SVT which was converted with adenosine. She experienced some chest pain. There was an elevation of troponin which was felt secondary to a leak due to the SVT. Monitor show she is maintaining a sinus rhythm. She is currently without chest pain. Patient is new to me today -acute SVT converted with adenosine. Patient is to undergo cardiac risk stratification with a Lexiscan. She tolerated the infusion without ECG changes and we are pending images at this time. Patient is not experiencing any chest pain monitor shows only sinus rhythm -sepsis on admission with the leukocytosis tachycardia and hypertension. This is likely secondary to the SVT. -PTSD seems to be stable at this time. Patient needs a lot of reassurance -code status: Full -disposition probable discharge tomorrow after resting images -case discussed with Cardiology, Dr. Jocelyne Rivera. Subjective: No complaints of chest pain nausea vomiting diaphoresis monitor is currently stable. Objective: Vital Signs Temp Pulse Resp BP Pulse Ox 36.5 C 75 14 125/84 H 91 L 05/16/16 13:00 05/16/16 13:00 05/16/16 13:00 05/16/16 13:00 05/16/16 13:00 Laboratory Results 05/16/16 06:10 05/16/16 06:10 05/15/16 05/16/16 05/17/16 05:59 05:59 05:59 Intake Total 1380 Balance 1380 - Time Spent With Patient Time Spent with Patient: greater than 35 minutes Time Spent with Patient: Greater than 35 minutes spent on this patients care, greater than 50% of time spent counseling, educating, and coordinating care regarding the above mentioned plan. - Physical Exam Constitutional: no apparent distress Eyes: PERRL Ears, Nose, Mouth, Throat: moist mucous membranes, hearing normal Cardiovascular: regular rate and rhythym, no murmur, rub, or gallop, tachycardia Respiratory: no respiratory distress, no rales or rhonchi, clear to auscultation Gastrointestinal: normoactive bowel sounds, soft, non-tender abdomen, no palpable masses Genitourinary: no bladder fullness Skin: warm Neurologic: AAOx3 Psychiatric: interacting appropriately, anxious ICD10 Worksheet Patient Problems: Problems Problem Status Onset Lightheadedness Acute SVT (supraventricular tachycardia) Acute Elevated troponin Acute
[2016-05-16] MEDS: ASPIRIN EC 325 MG TAB PO SCH (16:42)
[2016-05-16] MEDS: DULoxetine 60 MG CAP PO SCH (21:10)
[2016-05-16] MEDS: PREGABALIN 100 MG CAP PO SCH (21:10)
[2016-05-16] MEDS: DULoxetine 30 MG CAP PO SCH (21:10)
[2016-05-17] MEDS: VITAMIN B COMPLEX 1 EA CAP/TAB PO SCH (09:01)
[2016-05-17] MEDS: HYDROCHLOROTHIAZIDE 25 MG TAB PO SCH (09:01)
[2016-05-17] MEDS: ASPIRIN EC 325 MG TAB PO SCH (09:01)
[2016-05-17] MEDS: ENALAPRIL MALEATE 5 MG TAB PO SCH (09:02)
[2016-05-17] MEDS: PANTOPRAZOLE SODIUM 40 MG TAB PO SCH (09:02)
[2016-05-17] MEDS: PSYLLIUM METAMUCIL 1 PKT PO SCH (09:03)
[2016-05-17] MEDS: ENOXAPARIN 40 MG/0.4 ML SYR SC SCH (09:03)
[2016-05-17 12:34] VITALS: BP 116/78; PULSE 64; RESP 11; TEMP 98; O2SAT 94
--- NOTE | 2016-05-17 15:26 | GDS ---
[f rep st] DISCHARGE SUMMARY NEW AND ACUTE DIAGNOSES: 1. Acute supraventricular tachycardia status post adenosine and converted. 2. Hypertension. 3. Posttraumatic stress disorder. 4. History of gastroesophageal reflux disease with a hiatal hernia seen on CT scan. CONSULTATION: Cardiology. PROCEDURES: 1. CTA of the chest and thorax showing no evidence of a pulmonary thromboembolic disease, mild yvonne hilar bronchitis, and a small hiatal hernia. 2. Lexiscan myocardial perfusion nuclear scan showing no ST-segment changes with Lexiscan infusion. Rest and exercise segments showed no evidence of cardiac ischemia. HOSPITAL COURSE: A 55-year-old female, who apparently became excited while talking with a neighbor about the problem of contemplating suicide. She became agitated, dizzy and weak, and was brought to the Emergency Department and noted to have a tachycardia of approximately 120 which then suddenly w ent to an SVT of 200. She was given adenosine and spontaneously converted to a sinus tachycardia. Cardiac evaluation showed no evidence of pulmonary embolus. No evidence of cardiac ischemia on the nuclear Lexiscan. Echocardiogram revealed an ejection fraction of 62% with normal wall motion and n o other noted abnormalities with only mild concentric left ventricular hypertrophy. DISCHARGE MEDICATIONS: These will be unchanged from her admission medications. Medications as follows: Vitamin B complex, Metamucil, Lyrica 200 mg q.h.s., hydrochlorothiazide 25 mg daily, Estrace vaginal cream daily, Protonix 40 mg daily, Vasotec 5 mg daily, Cymbalta 30 mg q.h. s. and Cymbalta 60 mg q.h.s. (the patient apparently takes 90 mg in the evening), albuterol inhaler. PLAN: The patient is discharged to her home with home care in good condition. She will see Dr. Vignesh rangel, her PCP, tomorrow, the day following discharge. I have suggested also that if she has a repea t episode of this problem that she should contact [facility]. Otherwise, her followup will be wi th just Dr. Armendariz. TIME: This discharge required 35 minutes, greater than 50% to certified credit counselor and coordinate care. /[id number]/MODL
== END 2016-05-17 16:35 | disposition home or self-care (01) | DRG 310 ==
LOC: EDUNIT# → F2W 19:45 → OBSVTOIN 05-16 16:00 → EEVIPCON 05-16 16:00
PROVIDERS: ADMIT Student in an Organized Health Care Education/Training Program; ATTEND Student in an Organized Health Care Education/Training Program
DX: I47.1 Supraventricular tachycardia (principal); I10 Essential (primary) hypertension; F43.10 Post-traumatic stress disorder, unspecified; K21.9 Gastro-esophageal reflux disease without esophagitis; K44.9 Diaphragmatic hernia without obstruction or gangrene; Z88.0 Allergy status to penicillin
CPT/HCPCS: 96374; A9500; G0378; J0153; J1650; J2060; J2405; J2785; Q9967

== ENCOUNTER 2016-05-24 20:39 | Emergency (ER) | payer OTHER, MEDICAID ==
--- NOTE | 2016-05-24 20:43 | EDPHY ---
HPI/HX/ROS/PE/MDM Narrative: CHIEF COMPLAINT: "I'm experiencing a very rapid heart rate" HPI: The patient is a 55 y/o female, with 8 previous ED visits in the last year , complaining of a rapid heart rate for the last 2.5 hours. She was recently admitted for SVT and dizziness on 05/15/16. She reports she has since followed up with her PCP, but was not started on any new medications. This evening, she initially noticed a rapid heart rate while taking a hot bath. An hour later she developed nausea and currently she also complains of right neck pain, dizziness , a headache with photophobia, and feeling like her "gait isn't normal." These symptoms feel different than her episode of SVT because she didn't have nausea at that time. She took nitro without improvement of symptoms tonight. She denies shortness of breath, recent illness, or recent trauma. REVIEW OF SYSTEMS: Aside from elements discussed in the HPI, a comprehensive 10-point review of systems was reviewed and is negative. PMH: Fibromyalgia, GERD, hiatal hernia, SVT, Hypertension, PTSD Prior medical records reviewed including admission 05/16/16 for dizziness and SVT. SOCIAL HISTORY: Nonsmoker. Lives in [place]. Single PHYSICAL EXAM: General:Patient is alert, in no acute distress. ENT:Eyes are normal to inspection. ENT inspection normal. Neck: Normal inspection. Full range of motion. Respiratory:No respiratory distress. Breath sounds normal bilaterally. Cardiovascular: Regular rate and rhythm. Strong peripheral pulses. Normal cap refill. Abdomen:The abdomen is nontender to palpation. There are no peritoneal signs. There are normal bowel sounds. Back: Normal to inspection. No tenderness to palpation. Skin: Normal color. No rash. Warm and dry. Extremities: Normal appearance. Full range of motion. Neuro: Oriented x3. Normal motor function. Normal sensory function. No pronator drift. Face symmetric. Normal acibro-fm-rpuj, but made challenging by the fact that patient keeps closing her eyes during attempted exam. (Darell Argueta) ED Course: IV established. Basic labs plus troponin drawn. EKG and chest x-ray ordered. 1L IV NS administered. Study: Chest x-ray Indication: rapid heart rate, dizziness Results: Chest x-ray was obtained. The results of the study are The study was read by the radiologist, . I viewed the images myself on the PACS system. The 12 lead EKG was interpreted by myself. See hard copy and/or "tracemaster" electronic copy for interpretation. 1mg IV Ativan administered. (Darell Argueta) 12:00 a.m.- The patient has been stable throughout my shift. I have re-evaluated her. She was able to walk to the bathroom without any difficulty. She does have some mild nausea without any other symptoms. She is comfortable with being discharged home with PMD follow-up this week. She will be discharged home. ( Magdalena Villalba) MDM: This patient is s/p recent discharge from the hospital one week ago for chest symptoms, with extensive negative workup including CTA of the chest and nuclear stress test. Her exam is reassuring and she is certainly fairly low risk for ACS or PE given recent workup. The patient ambulated in the ED with a normal steady gait but continues to feel nauseated. I have signed the patient out to Dr. Villalba pending re-evaluation. (Darell Argueta) - Data Points Laboratory Results: Laboratory Results 05/24/16 20:52 05/24/16 20:52 05/24/16 05/24/16 20:52 20:52 WBC 10.46 10^3/uL H 10^3/uL (3.80-9.50) RBC 5.29 10^6/uL 10^6/uL (4.18-5.33) Hgb 15.4 g/dL g/dL (12.6-16.3) Hct 45.2 % % (38.0-47.0) MCV 85.4 fL fL (81.5-99.8) MCH 29.1 pg pg (27.9-34.1) MCHC 34.1 g/dL g/dL (32.4-36.7) RDW 13.6 % % (11.5-15.2) Plt Count 353 10^3/uL 10^3/uL (150-400) MPV 10.6 fL fL (8.7-11.7) Neut % (Auto) 65.4 % % (39.3-74.2) Lymph % (Auto) 24.7 % % (15.0-45.0) Meade % (Auto) 7.1 % % (4.5-13.0) Eos % (Auto) 1.9 % % (0.6-7.6) Baso % (Auto) 0.5 % % (0.3-1.7) Nucleat RBC Rel Count 0.0 % % (0.0-0.2) Absolute Neuts (auto) 6.85 10^3/uL H 10^3/uL (1.70-6.50) Absolute Lymphs (auto) 2.58 10^3/uL 10^3/uL (1.00-3.00) Absolute Monos (auto) 0.74 10^3/uL 10^3/uL (0.30-0.80) Absolute Eos (auto) 0.20 10^3/uL 10^3/uL (0.03-0.40) Absolute Basos (auto) 0.05 10^3/uL 10^3/uL (0.02-0.10) Absolute Nucleated RBC 0.00 10^3/uL 10^3/uL (0-0.01) Immature Gran % 0.4 % % (0.0-1.1) Immature Gran # 0.04 10^3/uL 10^3/uL (0.00-0.10) Sodium 141 mEq/L mEq/L (134-144) Potassium 3.3 mEq/L L mEq/L (3.5-5.2) Chloride 100 mEq/L mEq/L (97-110) Carbon Dioxide 27 mEq/l mEq/l (22-31) Anion Gap 14 mEq/L mEq/L (8-16) BUN 26 mg/dL H mg/dL (7-23) Creatinine 0.8 mg/dL mg/dL (0.6-1.0) Estimated GFR > 60 Glucose 124 mg/dL H mg/dL (70-100) Calcium 9.7 mg/dL mg/dL (8.5-10.4) Troponin I < 0.012 ng/mL ng/mL (0-0.034) Medications Given: Discontinued Medications Sodium Chloride (Ns) 1,000 mls @ 0 mls/hr IV ONCE ONE PRN Reason: Wide Open Stop: 05/24/16 20:46 Last Admin: 05/24/16 21:01 Dose: 1,000 mls Lorazepam (Ativan Injection) 1 mg IVP EDNOW ONE Stop: 05/24/16 21:23 Last Admin: 05/24/16 21:27 Dose: 1 mg Ondansetron HCl (Zofran) 4 mg IVP EDNOW ONE Stop: 05/24/16 22:55 Last Admin: 05/24/16 22:55 Dose: 4 mg General Time Seen by Provider: 05/24/16 20:39 Initial Vital Signs: Initial Vital Signs Heart Rate 100 05/24/16 20:50 Respiratory Rate 18 05/24/16 20:50 Blood Pressure 131/90 H 05/24/16 20:50 O2 Sat (%) 91 L 05/24/16 20:50 O2 Delivery Mode Room Air O2 (L/minute) 2 Allergies/Adverse Reactions: hydrocodone [Hydrocodone] Allergy (Mild, Verified 05/05/16 22:56) heart races Penicillins Allergy (Mild, Verified 05/05/16 22:56) Rash clindamycin Allergy (Unknown, Verified 05/05/16 22:56) fluconazole Allergy (Unknown, Verified 05/05/16 22:56) metoclopramide Allergy (Unknown, Verified 05/05/16 22:56) Home Medications: Medication Instructions Recorded Albuterol [Proventil Inhaler HFA 1 - 2 puffs IH Q4H PRN 05/15/16 (*)] DULoxetine [Cymbalta 30 MG (*)] 30 mg PO HS 05/15/16 DULoxetine [Cymbalta 60 MG (*)] 60 mg PO HS 05/15/16 Enalapril Maleate [Vasotec 5 MG 5 mg PO DAILY 05/15/16 (*)] Esomeprazole Magnesium 40 mg PO DAILY 05/15/16 Estradiol [Estrace Vaginal (*)] 1 ciarra VG DAILY PRN 05/15/16 Hydrochlorothiazide [HCTZ (*)] 25 mg PO DAILY 05/15/16 Pregabalin [LYRICA] 200 mg PO HS 05/15/16 Psyllium Husk (with Sugar) 1 each PO DAILY 05/15/16 [Metamucil Packet] Vitamin B Complex [B Complex] 1 each PO DAILY 05/15/16 Departure - Departure Clinical Impression: Chest pain, Nausea Instructions: Chest Pain (ED) Additional Instructions: Follow-up with your primary doctor within 72 hours. Return to the Emergency Department for fever, chest pain, shortness of breath, increasing pain or other worsening of condition. Follow up with a creamery worker for further testing, as soon as possible, within one week. Referrals: Patient,NotPresent [Unknown] - As per Instructions Report Scribed for: Darell Argueta Report Scribed by: Ary Quiroz Date of Report: 05/24/16 Time of Report: 21:57 Physician Review and Approval Statement: Portions of this note were transcribed by an ED scribe. I personally performed the history, physical exam, and medical decision making; and confirm the accuracy of the information in the transcribed note.
[2016-05-24 20:55] LABS: % IMMATURE GRANULYOCYTES 0.4 % (0.0-1.1); ABSOLUTE IMMATURE GRANULOCYTES 0.04 10^3/uL (0.00-0.10); ADD DIFF? NO; ADD MORPH? NO; ADD SCAN? NO; ATYPICAL LYMPHOCYTE FLAG 20 (0-99); FRAGMENT RBC FLAG 0 (0-99); HEMATOCRIT 45.2 % (38.0-47.0); HEMOGLOBIN 15.4 g/dL (12.6-16.3); LEFT SHIFT FLG 0 (0-99); LIPEMIA HEMOLYSIS FLAG 90 (0-99); MEAN CELL HEMOGLOBIN 29.1 pg (27.9-34.1); MEAN CELL HEMOGLOBIN CONCENTR. 34.1 g/dL (32.4-36.7); MEAN CELL VOLUME 85.4 fL (81.5-99.8); MEAN PLATELET VOLUME 10.6 fL (8.7-11.7); PLATELET CLUMPS FLAG 10 (0-99); PLATELET COUNT 353 10^3/uL (150-400); RED BLOOD CELL COUNT 5.29 10^6/uL (4.18-5.33); RED CELL DISTRIBUTION WIDTH 13.6 % (11.5-15.2)
--- NOTE | 2016-05-24 21:00 | CPEKG ---
Heart Rate: 100 RR Interval: 600 P-R Interval: 176 QRSD Interval: 92 QT Interval: 384 QTC Interval: 496 P Wel[place]: 37 QRS [place]: 58 T Wave [place]: 16 EKG Severity - ABNORMAL ECG - EKG Impression: SINUS TACHYCARDIA EKG Impression: LEFT ATRIAL ABNORMALITY EKG Impression: BORDERLINE PROLONGED QT INTERVAL EKG Impression: Low voltage standard leads EKG Impression: Poor R-wave progression-- Worse since May 15, 2016 Electronically Signed By: Yves Isaac 25-May-2016 18:31:32
[2016-05-24] MEDS: NS 1,000 ML IV ONE (21:01)
[2016-05-24 21:02] VITALS: TEMP 98.1
[2016-05-24 21:10] LABS: ANION GAP 14 mEq/L (8-16); CALCIUM 9.7 mg/dL (8.5-10.4); CARBON DIOXIDE 27 mEq/l (22-31); CHLORIDE 100 mEq/L (97-110); CREATININE 0.8 mg/dL (0.6-1.0); GLOMERULAR FILTRATION RATE > 60; GLUCOSE 124 mg/dL (70-100); POTASSIUM 3.3 mEq/L (3.5-5.2); SODIUM 141 mEq/L (134-144)
[2016-05-24 21:21] LABS: TROPONIN I < 0.012 ng/mL (0-0.034)
[2016-05-24] MEDS: LORazepam 2 MG/ML INJ IVP ONE (21:27)
[2016-05-24] MEDS ORDERED: ONDANSETRON 4 MG/2 ML VIAL ONE (22:49)
[2016-05-24 22:54] VITALS: BP 121/82; RESP 18; O2SAT 93
[2016-05-24] MEDS: ONDANSETRON 4 MG/2 ML VIAL IVP ONE (22:55)
[2016-05-25 00:09] VITALS: PULSE 79
== END 2016-05-25 00:09 | disposition home or self-care (01) ==
LOC: EDUNIT#
DX: R07.9 Chest pain, unspecified (principal); R11.0 Nausea; I10 Essential (primary) hypertension
CPT/HCPCS: 71020; 93005; 96361; 96374; 96375; 99285; J2060; J2405

== ENCOUNTER 2016-05-26 13:50 | Emergency (ER) | payer OTHER, MEDICAID ==
--- NOTE | 2016-05-26 14:07 | EDPHY ---
H & P Stated Complaint: generalized body malaise, dizziness for 10days HPI/ROS: CHIEF COMPLAINT: Palpitations HISTORY OF PRESENT ILLNESS: Patient is a 55-year-old female with a history of SVT who is admitted last week for the same. She had a CT angio, Lexiscan and echocardiogram that were unremarkable. She has a follow-up appointment with Dr. Oswald in 3 weeks. She reported again to the emergency department 2 days ago was found to be stable. She also has a history of hypertension and fibromyalgia and PTSD as well as a hiatal hernia. She is taking an antacid that she does not remember the name of for this. She states that she had another episode today and is frustrated that she has to wait 3 weeks to see a clay artist. She is here demanding that she be admitted and see a clay artist why she is in hospital. She is currently asymptomatic. She states that the symptoms today it happened after she went for a long walk. She denies shortness of breath. She denies chest pain. She denies nausea vomiting or diaphoresis. She did have some lightheadedness during the episode but it resolved quickly. REVIEW OF SYSTEMS: Constitutional: denies: chills, fever, recent illness, recent injury EENTM: denies: blurred vision, double vision, nose congestion Respiratory: denies: cough, shortness of breath Cardiac: See HPI denies: chest pain, irregular heart rate, lightheadedness, Gastrointestinal/Abdominal: denies: abdominal pain, diarrhea, nausea, vomiting, blood streaked stools Genitourinary: denies: dysuria, frequency, hematuria, pain Musculoskeletal: denies: joint pain, muscle pain Skin: denies: lesions, rash, jaundice, bruising Neurological: denies: headache, numbness, paresthesia, tingling, dizziness, weakness Hematologic/Lymphatic: denies: blood clots, easy bleeding, easy bruising Immunologic/allergic: denies: HIV/AIDS, transplant EXAM: GENERAL: Well-appearing, well-nourished and in no acute distress. HEAD: Atraumatic, normocephalic. EYES: Pupils equal round and reactive to light, extraocular movements intact, sclera anicteric, conjunctiva are normal. ENT: TMs normal, nares patent, oropharynx clear without exudates. Moist mucous membranes. NECK: Normal range of motion, supple without lymphadenopathy or JVD. LUNGS: Breath sounds clear to auscultation bilaterally and equal. No wheezes rales or rhonchi. HEART: Regular rate and rhythm without murmurs, rubs or gallops. ABDOMEN: Soft, nontender, normoactive bowel sounds. No guarding, no rebound. No masses appreciated. BACK: No CVA tenderness, no spinal tenderness, step-offs or deformities EXTREMITIES: Normal range of motion, no pitting or edema. No clubbing or cyanosis. NEUROLOGICAL: Cranial nerves II through XII grossly intact. Normal speech, normal gait. 5/5 strength, normal movement in all extremities, normal sensation PSYCH: Normal mood, normal affect. SKIN: Warm, dry, normal turgor, no visible rashes or lesions. Source: Patient Exam Limitations: No limitations - Personal History Tetanus Vaccine Date: 2016 - Medical/Surgical History Hx Asthma: No Hx Chronic Respiratory Disease: No Hx Diabetes: No Hx Cardiac Disease: No Hx Renal Disease: No Hx Cirrhosis: No Hx Alcoholism: No Hx HIV/AIDS: No Hx Splenectomy or Spleen Trauma: No Other PMH: Fibromyalgia, HTN, TONSILECTOMY, Chronic pain on opiates, dissacossiative identity disorder.hiatial hernia, depression, anxiety. PS- refuses to state more.gi upset - Family History Significant Family History: No pertinent family hx - Social History Smoking Status: Never smoked Alcohol Use: Sober Drug Use: None Constitutional: Initial Vital Signs Temperature (C) 36.9 C 05/26/16 14:00 Heart Rate 64 05/26/16 14:00 Respiratory Rate 20 05/26/16 14:00 Blood Pressure 137/89 H 05/26/16 14:00 O2 Sat (%) 95 05/26/16 14:00 O2 Delivery Mode Room Air Allergies/Adverse Reactions: hydrocodone [Hydrocodone] Allergy (Mild, Verified 05/05/16 22:56) heart races Penicillins Allergy (Mild, Verified 05/05/16 22:56) Rash clindamycin Allergy (Unknown, Verified 05/05/16 22:56) fluconazole Allergy (Unknown, Verified 05/05/16 22:56) metoclopramide Allergy (Unknown, Verified 05/05/16 22:56) Home Medications: Medication Instructions Recorded Albuterol [Proventil Inhaler HFA 1 - 2 puffs IH Q4H PRN 05/15/16 (*)] DULoxetine [Cymbalta 30 MG (*)] 30 mg PO HS 05/15/16 DULoxetine [Cymbalta 60 MG (*)] 60 mg PO HS 05/15/16 Enalapril Maleate [Vasotec 5 MG 5 mg PO DAILY 05/15/16 (*)] Esomeprazole Magnesium 40 mg PO DAILY 05/15/16 Estradiol [Estrace Vaginal (*)] 1 ciarra VG DAILY PRN 05/15/16 Hydrochlorothiazide [HCTZ (*)] 25 mg PO DAILY 05/15/16 Pregabalin [LYRICA] 200 mg PO HS 05/15/16 Psyllium Husk (with Sugar) 1 each PO DAILY 05/15/16 [Metamucil Packet] Vitamin B Complex [B Complex] 1 each PO DAILY 05/15/16 Diltiazem HCl 30 mg PO TID #0 tablet 05/26/16 Diltiazem HCl 30 mg PO TID #90 tablet 05/26/16 Medical Decision Making ED Course/Re-evaluation: The patient is very frustrated about a perceived delay of her treatment. She has not yet been started on any medication for paroxysmal SVT episodes. I offered to speak with Dr. Oswald and Dr. Armendariz is office and agree on a prophylactic medication possibly verapamil. 2:35 p.m. I spoke with Stephanie Gutierrez from Dr. Armendariz is office. She agrees with starting a prophylactic calcium channel jimmy. I then spoke with Johnathan from Dr. Oswald office. He recommended diltiazem extended-release initially but called back later and recommended 30 mg three times daily. We also were able to move her appointment from June 16 to May 31 at 10:30 a.m.. Discussed this with the patient and the patient business office representative is in the room with her. She is pleased with this. I will start her on this medication now provided prescription. She has been asymptomatic here. Her EKG is stable. We will discharge her home at this time. Differential Diagnosis: Partial list of the Differential diagnosis considered include but were not limited to; anxiety, SVT and although unlikely based on the history and physical exam, I also considered infection, fever, acute coronary disease. I discussed these differential diagnoses and the plan with the patient as well as the usual and expected course. The patient understands that the diagnosis is provisional and that in medicine we are not always correct and that further workup is often warranted. Usual and customary warnings were given. All of the patient's questions were answered. The patient was instructed to return to the emergency department should the symptoms at all worsen or return, otherwise to followup with the physician as we discussed. - Data Points Medications Given: Discontinued Medications Diltiazem HCl (Cardizem Immediate Release) 30 mg PO EDNOW ONE Stop: 05/26/16 14:34 Last Admin: 05/26/16 15:05 Dose: 30 mg Departure - Departure Disposition: Home, Routine, Self-Care Clinical Impression: Palpitations, SVT (supraventricular tachycardia) Condition: Fair Instructions: Supraventricular Tachycardia (ED), Palpitations (ED) Additional Instructions: Follow-up with Dr. Oswald on TuesdayMay 31 at 10:30 a.m.. This should replace your appointment on June 16. Take the diltiazem prescribed to hopefully prevent further episodes of SVT and report the results to Dr. Oswald. Referrals: Livan Oswald MD [Medical Doctor] - As per Instructions Victoria Armendariz MD [Primary Care Provider] - As per Instructions Prescriptions: Diltiazem HCl 30 mg PO TID #0 tablet Diltiazem HCl 30 mg PO TID #90 tablet
--- NOTE | 2016-05-26 14:08 | CPEKG ---
Heart Rate: 62 RR Interval: 968 P-R Interval: 180 QRSD Interval: 94 QT Interval: 468 QTC Interval: 476 P [place]: 15 QRS [place]: 62 T Wave [place]: 23 EKG Severity - NORMAL ECG - EKG Impression: SINUS RHYTHM Electronically Signed By: Shant Atkins 26-May-2016 14:13:35
[2016-05-26] MEDS ORDERED: DILTIAZEM CD 120 MG CAP PO SCH (14:30)
[2016-05-26] MEDS ORDERED: DILTIAZEM 30 MG TAB PO ONE (14:33)
[2016-05-26 15:16] VITALS: BP 138/89; PULSE 80; RESP 16; TEMP 98.1; O2SAT 96
== END 2016-05-26 15:41 | disposition home or self-care (01) ==
LOC: EDUNIT#
DX: I47.1 Supraventricular tachycardia (principal); I10 Essential (primary) hypertension

== ENCOUNTER 2016-07-17 18:05 | Emergency (ER) | payer OTHER, MEDICAID ==
--- NOTE | 2016-07-17 18:06 | EDPHY ---
H & P Time Seen by Provider: 07/17/16 18:15 HPI/ROS: CHIEF COMPLAINT: Heart palpitations, chest discomfort HISTORY OF PRESENT ILLNESS: This patient is a 55 year old female with history of supraventricular tachycardia who presents to the Emergency Department via EMS following an episode of acute heart palpitations and chest discomfort while at home doing laundry at 1530 today. She states that she waited two hours to call the paramedics hoping that the discomfort would resolve on its own. She has been prescribed metoprolol to take daily; she took 50mg at 1600 today without improvement to her symptoms. Upon their arrival, paramedics confirmed SVT. They were able to convert her back to normal rhythm using 12mg adenosine in transport. At time of arrival, she states that her palpitations and discomfort have resolved entirely. She feels fatigued following the episode but has no additional complaints. REVIEW OF SYSTEMS: Constitutional: +fatigue, no fever, no chills Eyes: No visual changes ENT: No sore throat Respiratory: No cough, no shortness of breath Cardiac: As in HPI Gastrointestinal: No nausea, no vomiting, no abdominal pain Genitourinary: No hematuria, no dysuria Musculoskeletal: No leg pain or swelling Skin: No rash Neurological: No headache, no numbness, no weakness Psychiatric: depression Past Medical/Surgical History: 1. Chronic intermittent SVT (metoprolol) 2. Hypertension 3. Fibromyalgia 4. Hiatal hernia 5. PTSD, depression, anxiety, DID (Cymbalta) Social History: Never smoked. Sober. Physical Exam: General Appearance: Alert, pleasant Eyes: Pupils equal and round, no conjunctival pallor or injection ENT, Mouth: Mucous membranes moist Neck: Normal inspection Respiratory: Lungs are clear to auscultation Cardiovascular: Regular rate and rhythm Gastrointestinal: Abdomen is soft and non- tender Neurological: A&O, nonfocal exam Skin: Warm and dry, no rash Extremities: Nontender, no pedal edema Psychiatric: flat affect Constitutional: Initial Vital Signs Temperature (C) 36.7 C 07/17/16 18:05 Heart Rate 96 07/17/16 18:05 Respiratory Rate 18 07/17/16 18:05 Blood Pressure 161/101 H 07/17/16 18:05 O2 Sat (%) 96 07/17/16 18:05 O2 Delivery Mode Room Air Allergies/Adverse Reactions: hydrocodone [Hydrocodone] Allergy (Mild, Verified 05/05/16 22:56) heart races Penicillins Allergy (Mild, Verified 05/05/16 22:56) Rash clindamycin Allergy (Unknown, Verified 05/05/16 22:56) fluconazole Allergy (Unknown, Verified 05/05/16 22:56) metoclopramide Allergy (Unknown, Verified 05/05/16 22:56) Home Medications: Medication Instructions Recorded Albuterol [Proventil Inhaler HFA 1 - 2 puffs IH Q4H PRN 05/15/16 (*)] DULoxetine [Cymbalta 30 MG (*)] 30 mg PO HS 05/15/16 DULoxetine [Cymbalta 60 MG (*)] 60 mg PO HS 05/15/16 Enalapril Maleate [Vasotec 5 MG 5 mg PO DAILY 05/15/16 (*)] Esomeprazole Magnesium 40 mg PO DAILY 05/15/16 Estradiol [Estrace Vaginal (*)] 1 ciarra VG DAILY PRN 05/15/16 Hydrochlorothiazide [HCTZ (*)] 25 mg PO DAILY 05/15/16 Pregabalin [LYRICA] 200 mg PO HS 05/15/16 Psyllium Husk (with Sugar) 1 each PO DAILY 05/15/16 [Metamucil Packet] Vitamin B Complex [B Complex] 1 each PO DAILY 05/15/16 Diltiazem HCl 30 mg PO TID #0 tablet 05/26/16 Diltiazem HCl 30 mg PO TID #90 tablet 05/26/16 Medical Decision Making - Diagnostics EKG Interpretation: EKG interpreted by me reveals normal sinus rhythm, rate 93; first degree AV block. ED Course/Re-evaluation: 180: Took EMS report at bedside. This 55-year-old female with history presents following conversion from SVT to normal sinus rhythm using 12mg adenosine administered by EMS in transport. At time of arrival, the patient has no complaints apart from fatigue secondary to the episode. EKG obtained here in the ED confirms sinus rhythm. She has a history of recurrent supraventricular tachycardia and is followed by Dr. Oswald. It is unclear if she is compliant with the metoprolol she has been prescribed. I recommended to her that she follow-up with Dr. Oswald in his office this week. She does express agreement to this. The patient has remained in normal sinus rhythm for the duration of her visit in the ED. She has remained asymptomatic. I discussed with her again my recommendation that she follow-up with Dr. Oswald. She is agreeable to this. She will be discharged home in good condition with customary return precautions. Differential Diagnosis: The differential diagnosis for the patient's chest discomfort and palpitations included but was not limited to supraventricular tachycardia, myocardial ischemia, pulmonary embolus, chest wall pain, pleural inflammation, and pulmonary infectious causes. - Data Points Laboratory Results: Laboratory Results 07/17/16 18:47 07/17/16 18:47 Medications Given: Discontinued Medications Al Hydroxide/Mg Hydroxide (Maalox Susp) 30 ml PO EDNOW ONE Stop: 07/17/16 19:05 Last Admin: 07/17/16 19:21 Dose: 30 ml Al Hydroxide/Mg Hydroxide (Maalox Susp) 30 ml PO EDNOW ONE Stop: 07/17/16 19:06 Last Admin: 07/17/16 19:21 Dose: Not Given Departure - Departure Disposition: Home, Routine, Self-Care Clinical Impression: SVT (supraventricular tachycardia) Instructions: Supraventricular Tachycardia (ED) Additional Instructions: 1. Follow-up with Dr. Oswald as we discussed for further evaluation of your supraventricular tachycardia and to determine that you are using the correct dose of medications. 2. Return to the Emergency Department for recurrent symptoms of chest discomfort , lightheadedness, heart palpitations, or any other serious concerns. Referrals: Livan Oswald MD [Medical Doctor] - 5-7 days, call for appt. Report Scribed for: Cherie Dave Report Scribed by: Amairani Vasquez Date of Report: 07/17/16 Time of Report: 18:06 Physician Review and Approval Statement: 07/17/16 18:05 Portions of this note were transcribed by a medical sonographer. I personally performed a history, physical exam, medical decision making, and confirmed accuracy of information the transcribed note.
--- NOTE | 2016-07-17 18:16 | CPEKG ---
Heart Rate: 93 RR Interval: 645 P-R Interval: 212 QRSD Interval: 88 QT Interval: 372 QTC Interval: 463 P [place]: 43 QRS [place]: 48 T Wave Goodrich: 28 EKG Severity - ABNORMAL ECG - EKG Impression: SINUS RHYTHM EKG Impression: FIRST DEGREE AV BLOCK Electronically Signed By: Cherie Dave 17-Jul-2016 21:04:25
[2016-07-17 18:53] LABS: % IMMATURE GRANULYOCYTES 0.5 % (0.0-1.1); ABSOLUTE IMMATURE GRANULOCYTES 0.05 10^3/uL (0.00-0.10); ADD DIFF? NO; ADD MORPH? NO; ADD SCAN? NO; ATYPICAL LYMPHOCYTE FLAG 0 (0-99); FRAGMENT RBC FLAG 0 (0-99); HEMATOCRIT 41.8 % (38.0-47.0); LEFT SHIFT FLG 0 (0-99); LIPEMIA HEMOLYSIS FLAG 80 (0-99); MEAN CELL HEMOGLOBIN 28.6 pg (27.9-34.1); MEAN CELL HEMOGLOBIN CONCENTR. 33.5 g/dL (32.4-36.7); MEAN CELL VOLUME 85.5 fL (81.5-99.8); MEAN PLATELET VOLUME 10.4 fL (8.7-11.7); PLATELET CLUMPS FLAG 0 (0-99); PLATELET COUNT 328 10^3/uL (150-400); RED BLOOD CELL COUNT 4.89 10^6/uL (4.18-5.33); RED CELL DISTRIBUTION WIDTH 13.7 % (11.5-15.2)
[2016-07-17 19:03] LABS: ANION GAP 9 mEq/L (8-16); CALCIUM 9.4 mg/dL (8.5-10.4); CARBON DIOXIDE 24 mEq/l (22-31); CHLORIDE 108 mEq/L (97-110); CREATININE 0.7 mg/dL (0.6-1.0); GLOMERULAR FILTRATION RATE > 60; GLUCOSE 147 mg/dL (70-100); POTASSIUM 3.4 mEq/L (3.5-5.2); SODIUM 141 mEq/L (134-144)
[2016-07-17] MEDS ORDERED: MAG HYDROX/AL HYDROX/SIMETH 30 ML UDCUP PO ONE ×2 (19:04→19:05)
[2016-07-17 19:48] VITALS: BP 122/88; PULSE 82; RESP 14; TEMP 98.8; O2SAT 92
== END 2016-07-17 19:55 | disposition home or self-care (01) ==
LOC: EDUNIT#
DX: I47.1 Supraventricular tachycardia (principal); I10 Essential (primary) hypertension

== ENCOUNTER 2016-07-21 11:35 | Emergency (ER) | payer OTHER, MEDICAID ==
--- NOTE | 2016-07-21 11:54 | CPEKG ---
Heart Rate: 96 RR Interval: 625 P-R Interval: 160 QRSD Interval: 92 QT Interval: 372 QTC Interval: 471 P Hasty: 44 QRS Hasty: -2 T Wave Hasty: -4 EKG Severity - ABNORMAL ECG - EKG Impression: SINUS RHYTHM EKG Impression: PROBABLE LEFT ATRIAL ABNORMALITY Electronically Signed By: Cherie Dave 22-Jul-2016 20:34:28
[2016-07-21 11:56] VITALS: RESP 16
--- NOTE | 2016-07-21 11:57 | EDPHY ---
H & P HPI/ROS: CHIEF COMPLAINT: Palpitations HISTORY OF PRESENT ILLNESS: The patient is a 55-year-old female with history of SVT, who presents with palpitations that started about 1 hour ago. She took 2 metoprolol at onset of symptoms and palpitations improved. The patient states she is anxious that her heart rate will increase and that is the primary reason for her ED visit today. She denies chest pain or shortness of breath. The patient has a meeting with her therapist at 3pm today. Recent cardiac evaluation , including nuclear stress test, negative. No dizziness or diaphoresis. REVIEW OF SYSTEMS: A comprehensive 10 point review of systems is otherwise negative aside from elements mentioned in the history of present illness. Past Medical/Surgical History: SVT, Fibromyalgia, HTN, Chronic pain-on opiates, dissociative identity disorder , hiatal hernia, depression Social History: Single. Lives in [place]. Smoking Status: Never smoked Physical Exam: General Appearance: Alert, pleasant Eyes: Pupils equal and round, no conjunctival pallor or injection ENT, Mouth: Mucous membranes moist Neck: Normal inspection Respiratory: Lungs are clear to auscultation Cardiovascular: Regular rate and rhythm Gastrointestinal: Abdomen is soft and non-tender Neurological: A&O, nonfocal, normal gait Skin: Warm and dry, no rash Extremities: Nontender, no pedal edema Psychiatric: Mood and affect normal Constitutional: Initial Vital Signs Temperature (C) 36.7 C 07/21/16 11:53 Heart Rate 91 07/21/16 11:53 Respiratory Rate 16 07/21/16 11:53 Blood Pressure 122/76 H 07/21/16 11:53 O2 Sat (%) 95 07/21/16 11:53 O2 Delivery Mode Room Air Allergies/Adverse Reactions: hydrocodone [Hydrocodone] Allergy (Mild, Verified 05/05/16 22:56) heart races Penicillins Allergy (Mild, Verified 05/05/16 22:56) Rash clindamycin Allergy (Unknown, Verified 05/05/16 22:56) fluconazole Allergy (Unknown, Verified 05/05/16 22:56) metoclopramide Allergy (Unknown, Verified 05/05/16 22:56) Home Medications: Medication Instructions Recorded Albuterol [Proventil Inhaler HFA 1 - 2 puffs IH Q4H PRN 05/15/16 (*)] DULoxetine [Cymbalta 30 MG (*)] 30 mg PO HS 05/15/16 DULoxetine [Cymbalta 60 MG (*)] 60 mg PO HS 05/15/16 Enalapril Maleate [Vasotec 5 MG 5 mg PO DAILY 05/15/16 (*)] Esomeprazole Magnesium 40 mg PO DAILY 05/15/16 Estradiol [Estrace Vaginal (*)] 1 ciarra VG DAILY PRN 05/15/16 Hydrochlorothiazide [HCTZ (*)] 25 mg PO DAILY 05/15/16 Pregabalin [LYRICA] 200 mg PO HS 05/15/16 Psyllium Husk (with Sugar) 1 each PO DAILY 05/15/16 [Metamucil Packet] Vitamin B Complex [B Complex] 1 each PO DAILY 05/15/16 Diltiazem HCl 30 mg PO TID #0 tablet 05/26/16 Diltiazem HCl 30 mg PO TID #90 tablet 05/26/16 Medical Decision Making - Diagnostics EKG Interpretation: The 12 lead EKG was interpreted by myself. See hard copy and/or "tracemaster" electronic copy for interpretation: Sinus rhythm, rate 96. No ST or T segment changes. ED Course/Re-evaluation: Patient with history of SVT, presents with palpitations that started 1.5 hours ago. The patient took two Metoprolol at onset of symptoms. Her palpitations have subsided. Will observe. I dod not suspect ACS in this pt. quality assurance monitor final: NSR with occasional PAC's throughout. No SVT or other dysrhythmia. Pt will f/u with Dr. Oswald in the office. Differential Diagnosis: includes though not limited to SVT, ventricular dysrhythmia, ACS - Data Points Laboratory Results: Laboratory Results 07/21/16 11:30 07/21/16 11:30 Departure - Departure Disposition: Home, Routine, Self-Care Clinical Impression: Palpitations Condition: Good Instructions: Palpitations (ED) Additional Instructions: Please followup with your jewelry cutter if you continue to have symptoms. Referrals: Livan Oswald MD [Medical Doctor] - As per Instructions Report Scribed for: Cherie Dave Report Scribed by: Zahra Aquino Date of Report: 07/21/16 Time of Report: 11:53 Physician Review and Approval Statement: 07/21/16 11:53 Portions of this note were transcribed by a medical technologist hematology. I personally performed the history, physical exam, and medical decision-making; and confirmed the accuracy of the information in the transcribed note.
[2016-07-21 12:06] LABS: % IMMATURE GRANULYOCYTES 0.5 % (0.0-1.1); ABSOLUTE IMMATURE GRANULOCYTES 0.04 10^3/uL (0.00-0.10); ADD DIFF? NO; ADD MORPH? NO; ADD SCAN? NO; ATYPICAL LYMPHOCYTE FLAG 0 (0-99); FRAGMENT RBC FLAG 0 (0-99); HEMOGLOBIN 16.4 g/dL (12.6-16.3); LEFT SHIFT FLG 0 (0-99); LIPEMIA HEMOLYSIS FLAG 80 (0-99); MEAN CELL HEMOGLOBIN 28.1 pg (27.9-34.1); MEAN CELL HEMOGLOBIN CONCENTR. 32.8 g/dL (32.4-36.7); MEAN CELL VOLUME 85.8 fL (81.5-99.8); MEAN PLATELET VOLUME 10.8 fL (8.7-11.7); PLATELET CLUMPS FLAG 0 (0-99); PLATELET COUNT 369 10^3/uL (150-400); RED BLOOD CELL COUNT 5.83 10^6/uL (4.18-5.33); RED CELL DISTRIBUTION WIDTH 13.6 % (11.5-15.2)
[2016-07-21 12:16] LABS: ANION GAP 14 mEq/L (8-16); CALCIUM 9.6 mg/dL (8.5-10.4); CARBON DIOXIDE 27 mEq/l (22-31); CHLORIDE 100 mEq/L (97-110); CREATININE 0.8 mg/dL (0.6-1.0); GLOMERULAR FILTRATION RATE > 60; GLUCOSE 183 mg/dL (70-100); POTASSIUM 3.6 mEq/L (3.5-5.2); SODIUM 141 mEq/L (134-144)
[2016-07-21 12:28] LABS: TROPONIN I < 0.012 ng/mL (0-0.034)
[2016-07-21 12:50] VITALS: BP 122/70; PULSE 80; TEMP 97.5; O2SAT 98
== END 2016-07-21 12:49 | disposition home or self-care (01) ==
LOC: EDUNIT#
DX: R00.2 Palpitations (principal); I10 Essential (primary) hypertension

== ENCOUNTER 2016-07-23 14:44 | Emergency (ER) | payer OTHER, MEDICAID ==
--- NOTE | 2016-07-23 15:07 | EDPHY ---
H & P Time Seen by Provider: 07/23/16 14:59 HPI/ROS: Chief complaint. Chest pain HPI. 55-year-old female here by EMS with chest pain for 2 hours. She notes that it comes and goes. She described as stabbing and pressure and radiating to her left shoulder blade. No change in her discomfort with breathing, movement, exertion. Slight shortness of breath. She has a cough but no fever. She has nerve pain in her ankles but no swelling. She feels like she could pass out and her symptoms are more severe. She has an appointment next week with a electrophysiology information assurance analyst for consideration for ablation of SVT. Patient has been seen in the ED on July 21 and July 17 for cardiac complaints ROS Constitutional. no fever/chills, no weakness Eyes. no problems with vision ENT. no sore throat, no nasal drainage Cardiovascular. Chest pain Respiratory. Shortness of breath Abdominal. no abdominal pain, no nausea/vomiting, no diarrhea . no problems urinating MS. no calf pain/swelling, no neck/back pain, no joint pain Skin. no rash Lymph. no swollen glands Neuro. no headache, no dizziness, no difficulty walking or with speech Past Medical/Surgical History: Past medical history is significant for SVT, fibromyalgia, hypertension, chronic pain on opiates, dissociative identity disorder, depression, anxiety Social History: Single, nonsmoker, no alcohol Smoking Status: Never smoked Physical Exam: General Appearance: Alert well-developed female mild distress vital signs are stable Eyes: Pupils equal and round no pallor or injection. ENT, Mouth: Mucous membranes are moist. Respiratory: There are no retractions, lungs are clear to auscultation. Cardiovascular: Regular rate and rhythm. Gastrointestinal: Abdomen is soft and nontender, no masses, bowel sounds normal. Neurological: Awake and alert, sensory and motor exams grossly normal. Skin: Warm and dry, no rashes. Musculoskeletal: Neck is supple nontender. Extremities symmetrical, full range of motion. Psychiatric: Patient is oriented X 3, there is no agitation. Constitutional: Initial Vital Signs Temperature (C) 36.8 C 07/23/16 14:46 Heart Rate 61 07/23/16 14:46 Respiratory Rate 14 07/23/16 14:46 Blood Pressure 130/78 H 07/23/16 14:46 O2 Sat (%) 96 07/23/16 14:46 O2 Delivery Mode Room Air Allergies/Adverse Reactions: hydrocodone [Hydrocodone] Allergy (Mild, Verified 05/05/16 22:56) heart races Penicillins Allergy (Mild, Verified 05/05/16 22:56) Rash clindamycin Allergy (Unknown, Verified 05/05/16 22:56) fluconazole Allergy (Unknown, Verified 05/05/16 22:56) metoclopramide Allergy (Unknown, Verified 05/05/16 22:56) Home Medications: Medication Instructions Recorded Albuterol [Proventil Inhaler HFA 1 - 2 puffs IH Q4H PRN 05/15/16 (*)] DULoxetine [Cymbalta 30 MG (*)] 30 mg PO HS 05/15/16 DULoxetine [Cymbalta 60 MG (*)] 60 mg PO HS 05/15/16 Enalapril Maleate [Vasotec 5 MG 5 mg PO DAILY 05/15/16 (*)] Esomeprazole Magnesium 40 mg PO DAILY 05/15/16 Estradiol [Estrace Vaginal (*)] 1 ciarra VG DAILY PRN 05/15/16 Hydrochlorothiazide [HCTZ (*)] 25 mg PO DAILY 05/15/16 Pregabalin [LYRICA] 200 mg PO HS 05/15/16 Psyllium Husk (with Sugar) 1 each PO DAILY 05/15/16 [Metamucil Packet] Vitamin B Complex [B Complex] 1 each PO DAILY 05/15/16 Diltiazem HCl 30 mg PO TID #0 tablet 05/26/16 Diltiazem HCl 30 mg PO TID #90 tablet 05/26/16 Medical Decision Making - Diagnostics EKG Interpretation: EKG interpreted by me shows normal sinus rhythm with normal interval and axis. QRS is normal there is no significant ST elevation or depression. There is no arrhythmia. The rate is 49 Imaging Results: One-view chest x-ray interpreted by me as normal Procedures: IV normal saline, monitor. Patient refuses aspirin because she has fibromyalgia Review of old records. Of note patient had a normal nuclear stress test and a normal Lexiscan stress test in May 14 ED Course/Re-evaluation: Patient has an elevated troponin. Re-evaluation at 3:45 p.m. the patient and I discussed laboratory evaluation and recommendation for CT angio of her chest. She expresses understanding and agreement. Patient is given a L of normal saline Re-evaluation again at 5:30 p.m.. Patient is stable. 2nd troponin is pending 2nd troponin is normal. Re-evaluation 6:15 p.m.. Patient is stable Patient feels comfortable going home. She has no chest discomfort or trouble breathing. Her evaluation is normal. We discussed treatment plan including criteria for return importance of follow-up and further evaluation. She is encouraged to return over the weekend for worsening symptoms before seeing Dr. Chawla next week Differential Diagnosis: I considered acute coronary syndrome, pneumonia, pulmonary embolus. Patient has a known history of SVT and has felt palpitations. No findings of SVT during this visit. Troponins are normal. She has had recent cardiac workup that has been normal. This may well be anxiety. - Data Points Laboratory Results: Laboratory Results 07/23/16 15:00 07/23/16 15:00 Medications Given: Discontinued Medications Sodium Chloride (Ns) 1,000 mls @ 0 mls/hr IV ONCE ONE PRN Reason: Wide Open Stop: 07/23/16 15:51 Last Admin: 07/23/16 15:50 Dose: 1,000 mls Departure - Departure Disposition: Home, Routine, Self-Care Clinical Impression: Palpitations Condition: Good Instructions: Palpitations (ED) Additional Instructions: Continue regular medications. Return for worsening irregular heartbeat, the passing out, chest discomfort. The follow-up with Dr. Chawla next week for discussion of ablation Referrals: Patient,NotPresent [Unknown] - As per Instructions Corby Chawla MD [Medical Doctor] - 5-7 days, call for appt.
--- NOTE | 2016-07-23 15:15 | CPEKG ---
Heart Rate: 49 RR Interval: 1224 P-R Interval: 212 QRSD Interval: 90 QT Interval: 492 QTC Interval: 445 P [place]: 32 QRS [place]: 27 T Wave [place]: 9 EKG Severity - OTHERWISE NORMAL ECG - EKG Impression: SINUS BRADYCARDIA Electronically Signed By: Yves Medel 23-Jul-2016 17:42:06
[2016-07-23 15:33] LABS: % IMMATURE GRANULYOCYTES 0.4 % (0.0-1.1); ABSOLUTE IMMATURE GRANULOCYTES 0.04 10^3/uL (0.00-0.10); ADD DIFF? NO; ADD MORPH? NO; ADD SCAN? NO; ATYPICAL LYMPHOCYTE FLAG 0 (0-99); FRAGMENT RBC FLAG 0 (0-99); HEMATOCRIT 49.5 % (38.0-47.0); HEMOGLOBIN 16.5 g/dL (12.6-16.3); LEFT SHIFT FLG 0 (0-99); LIPEMIA HEMOLYSIS FLAG 80 (0-99); MEAN CELL HEMOGLOBIN 28.5 pg (27.9-34.1); MEAN CELL HEMOGLOBIN CONCENTR. 33.3 g/dL (32.4-36.7); MEAN CELL VOLUME 85.5 fL (81.5-99.8); MEAN PLATELET VOLUME 10.7 fL (8.7-11.7); PLATELET CLUMPS FLAG 0 (0-99); PLATELET COUNT 393 10^3/uL (150-400); RED BLOOD CELL COUNT 5.79 10^6/uL (4.18-5.33); RED CELL DISTRIBUTION WIDTH 14.1 % (11.5-15.2)
[2016-07-23 15:40] LABS: ANION GAP 15 mEq/L (8-16); CARBON DIOXIDE 29 mEq/l (22-31); CHLORIDE 99 mEq/L (97-110); CREATININE 0.8 mg/dL (0.6-1.0); GLOMERULAR FILTRATION RATE > 60; GLUCOSE 97 mg/dL (70-100); POTASSIUM 3.9 mEq/L (3.5-5.2); SODIUM 143 mEq/L (134-144)
[2016-07-23] MEDS ORDERED: NS 1,000 ML IV ONE (15:50)
[2016-07-23 15:51] LABS: TROPONIN I < 0.012 ng/mL (0-0.034)
[2016-07-23] MEDS ORDERED: IOPAMIDOL (ISOVUE 370) 100 ML BTL IV ONE (16:18)
[2016-07-23 17:26] VITALS: RESP 16
[2016-07-23 18:36] VITALS: BP 116/68; PULSE 53; TEMP 98.1; O2SAT 94
== END 2016-07-23 18:36 | disposition home or self-care (01) ==
LOC: EDUNIT#
DX: R00.2 Palpitations (principal); I10 Essential (primary) hypertension
CPT/HCPCS: 71010; 71275; 93005; 99285; Q9967

== ENCOUNTER 2016-07-26 18:20 | Emergency (ER) | payer OTHER, MEDICAID ==
[2016-07-26 18:29] VITALS: RESP 18; TEMP 98.6
--- NOTE | 2016-07-26 18:40 | CPEKG ---
Heart Rate: 64 RR Interval: 938 P-R Interval: 200 QRSD Interval: 96 QT Interval: 436 QTC Interval: 450 P [place]: 24 QRS [place]: 30 T Wave [place]: 13 EKG Severity - NORMAL ECG - EKG Impression: SINUS RHYTHM Electronically Signed By: Cornelio Orta 26-Jul-2016 21:13:46
--- NOTE | 2016-07-26 18:42 | EDPHY ---
H & P Stated Complaint: freq visits for cp/palpitations/felt hr fast/took metoprolol HPI/ROS: HPI CHIEF COMPLAINT: Palpitations HISTORY OF PRESENT ILLNESS: This patient very pleasant 55-year-old female she does have significant past medical history for SVT, fibromyalgia, hypertension, chronic pain, dissociated identity disorder, depression, anxiety, has been recently here in the emergency room multiple times, seen on July 17 July 21, presents to the emergency room with palpitations. Patient states that this woke her up from sleep she was taking a nap at 4:00 p.m. she had onset of palpitations that woke her up. She tells me this lasted 15 minutes. She felt very flushed when it was happening. She denies chest pain or shortness of breath. Denies fever or recent illness. Of note she has been seen here in the emergency room multiple times for the similar complaint. She is due to follow up with Dr. Chawla outpatient on August 12. She does tell me here she feels very anxious. Upon arrival here in emergency room she is resting comfortably normal vital signs no chest pain no shortness of breath. Does endorse anxiety. Past Medical History: SVT, fibromyalgia, hypertension, chronic pain, dissociated identity disorder, depression, anxiety, Past Surgical History: No recent surgical history Social History: Denies daily use of drugs alcohol tobacco products Family History: Noncontributory ROS REVIEW OF SYSTEMS: A comprehensive 10 point review of systems is otherwise negative aside from elements mentioned in the history of present illness. Exam Constitutional appears well nontoxic, triage nursing summary reviewed, vital signs reviewed, awake/alert. Eyes normal conjunctivae and sclera, EOMI, PERRLA. HENT normal inspection, atraumatic, moist mucus membranes, no epistaxis, neck supple/ no meningismus, no raccoon eyes. Respiratory clear to auscultation bilaterally, normal breath sounds, no respiratory distress, no wheezing. Cardiovascular rate normal, regular rhythm, no murmur, no edema, distal pulses normal. Gastrointestinal soft, non-tender, no rebound, no guarding, normal bowel sounds, no distension, no pulsatile mass. Genitourinary no CVA tenderness. Musculoskeletal no midline vertebral tenderness, full range of motion, no calf swelling, no tenderness of extremities, no meningismus, good pulses, neurovascularly intact. Skin pink, warm, & dry, no rash, skin atraumatic. Neurologic awake, alert and oriented x 3, AAOx3, moves all 4 extremities equally, motor intact, sensory intact, CN II-XII intact, normal cerebellar, normal vision, normal speech. Psychiatric normal mood/affect. Heme/Lymph/Immune no lymphadenopathy. Differential Diagnosis: Includes but is not limited to in a particular order, cardiac arrhythmia, SVT, electrolyte disturbance, dehydration, acute anxiety, panic attack Medical Decision Making: Plan for this patient full color television console monitor, IV establishment, IV fluid bolus IV Ativan 1 mg for acute anxiety check EKG check blood work electrolytes. Check troponin. Unlikely to be acute coronary syndrome given no chest pain or shortness of breath. Re-evaluation: EKG interpretation by me on record in [employer] system. Impression time of EKG 1837: This is sinus rhythm rate of 64 there is no acute ischemic change appreciated specifically no ST elevation or ST depression or significant T-wave abnormalities. Intervals are appropriate. No signs of WPW or other cardiac arrhythmia. When I compare this to her old EKG dated July 23 or 3 days ago it is unchanged morphology. 2025: Re-evaluation at this time patient is resting comfortably she has not had any chest pain or shortness of breath swelling color television console monitor for over 2 hours no signs of cardiac arrhythmia her EKG is unremarkable. Blood work is reassuring. Feel that this patient can be safely discharged home. She understands follow-up with Dr. Chawla for palpitations. Return emergency room if there is any worsening symptoms includes chest pain or shortness of breath. Patient does report to me she feels much better after IV Ativan and IV fluids. Source: Patient - Personal History Current Tetanus/Diphtheria Vaccine: Yes Tetanus Vaccine Date: 2016 - Medical/Surgical History Hx Asthma: No Hx Chronic Respiratory Disease: No Hx Diabetes: No Hx Cardiac Disease: Yes Hx Renal Disease: No Hx Cirrhosis: No Hx Alcoholism: No Hx HIV/AIDS: No Hx Splenectomy or Spleen Trauma: No Other PMH: SVT, Fibromyalgia, HTN, TONSILECTOMY, Chronic pain on opiates, dissacossiative identity disorder.hiatial hernia, depression, anxiety. PS- refuses to state more.gi upset - Social History Smoking Status: Never smoked Constitutional: Initial Vital Signs Temperature (C) 37 C 07/26/16 18:27 Heart Rate 77 07/26/16 18:27 Respiratory Rate 18 07/26/16 18:27 Blood Pressure 131/94 H 07/26/16 18:27 O2 Sat (%) 94 07/26/16 18:27 O2 Delivery Mode Room Air Allergies/Adverse Reactions: hydrocodone [Hydrocodone] Allergy (Mild, Verified 07/26/16 18:36) heart races Penicillins Allergy (Mild, Verified 07/26/16 18:36) Rash clindamycin Allergy (Unknown, Verified 07/26/16 18:36) fluconazole Allergy (Unknown, Verified 07/26/16 18:36) metoclopramide Allergy (Unknown, Verified 07/26/16 18:36) Home Medications: Medication Instructions Recorded Albuterol [Proventil Inhaler HFA 1 - 2 puffs IH Q4H PRN 05/15/16 (*)] DULoxetine [Cymbalta 30 MG (*)] 30 mg PO HS 05/15/16 DULoxetine [Cymbalta 60 MG (*)] 60 mg PO HS 05/15/16 Enalapril Maleate [Vasotec 5 MG 5 mg PO DAILY 05/15/16 (*)] Esomeprazole Magnesium 40 mg PO DAILY 05/15/16 Estradiol [Estrace Vaginal (*)] 1 ciarra VG DAILY PRN 05/15/16 Hydrochlorothiazide [HCTZ (*)] 25 mg PO DAILY 05/15/16 Pregabalin [LYRICA] 200 mg PO HS 05/15/16 Psyllium Husk (with Sugar) 1 each PO DAILY 05/15/16 [Metamucil Packet] Vitamin B Complex [B Complex] 1 each PO DAILY 05/15/16 LYRICA 07/26/16 Metoprolol Succinate 07/26/16 Ranitidine HCl 07/26/16 Medical Decision Making - Data Points Laboratory Results: Laboratory Results 07/26/16 18:40 07/26/16 18:40 07/26/16 07/26/16 18:40 18:40 WBC 8.69 10^3/uL 10^3/uL (3.80-9.50) RBC 5.45 10^6/uL H 10^6/uL (4.18-5.33) Hgb 15.4 g/dL g/dL (12.6-16.3) Hct 45.4 % % (38.0-47.0) MCV 83.3 fL fL (81.5-99.8) MCH 28.3 pg pg (27.9-34.1) MCHC 33.9 g/dL g/dL (32.4-36.7) RDW 13.7 % % (11.5-15.2) Plt Count 365 10^3/uL 10^3/uL (150-400) MPV 10.4 fL fL (8.7-11.7) Neut % (Auto) 64.8 % % (39.3-74.2) Lymph % (Auto) 25.5 % % (15.0-45.0) Ross % (Auto) 7.1 % % (4.5-13.0) Eos % (Auto) 1.7 % % (0.6-7.6) Baso % (Auto) 0.7 % % (0.3-1.7) Nucleat RBC Rel Count 0.0 % % (0.0-0.2) Absolute Neuts (auto) 5.62 10^3/uL 10^3/uL (1.70-6.50) Absolute Lymphs (auto) 2.22 10^3/uL 10^3/uL (1.00-3.00) Absolute Monos (auto) 0.62 10^3/uL 10^3/uL (0.30-0.80) Absolute Eos (auto) 0.15 10^3/uL 10^3/uL (0.03-0.40) Absolute Basos (auto) 0.06 10^3/uL 10^3/uL (0.02-0.10) Absolute Nucleated RBC 0.00 10^3/uL 10^3/uL (0-0.01) Immature Gran % 0.2 % % (0.0-1.1) Immature Gran # 0.02 10^3/uL 10^3/uL (0.00-0.10) Sodium 138 mEq/L mEq/L (134-144) Potassium 3.6 mEq/L mEq/L (3.5-5.2) Chloride 100 mEq/L mEq/L (97-110) Carbon Dioxide 26 mEq/l mEq/l (22-31) Anion Gap 12 mEq/L mEq/L (8-16) BUN 21 mg/dL mg/dL (7-23) Creatinine 0.7 mg/dL mg/dL (0.6-1.0) Estimated GFR > 60 Glucose 110 mg/dL H mg/dL (70-100) Calcium 9.9 mg/dL mg/dL (8.5-10.4) Magnesium 2.1 mg/dL mg/dL (1.6-2.3) Total Bilirubin 1.4 mg/dL mg/dL (0.1-1.4) Conjugated Bilirubin 0.5 mg/dL mg/dL (0.0-0.5) Unconjugated Bilirubin 0.9 mg/dL mg/dL (0.0-1.1) AST 36 IU/L IU/L (14-46) ALT 35 IU/L IU/L (9-52) Alkaline Phosphatase 101 IU/L IU/L (38-126) Creatine Kinase 62 IU/L IU/L (0-156) CK-MB (CK-2) Fraction 0.93 ng/mL ng/mL (0-3.19) Troponin I < 0.012 ng/mL ng/mL (0-0.034) NT-Pro-B Natriuret Pep 74 pg/mL pg/mL (0-125) Total Protein 8.3 g/dL H g/dL (6.3-8.2) Albumin 4.7 g/dL g/dL (3.5-5.0) Medications Given: Discontinued Medications Sodium Chloride (Ns) 1,000 mls @ 0 mls/hr IV ONCE ONE PRN Reason: Wide Open Stop: 07/26/16 18:51 Last Admin: 07/26/16 19:23 Dose: 1,000 mls Sodium Chloride (Ns) 500 mls @ 0 mls/hr IV ONCE ONE PRN Reason: As Directed Stop: 07/26/16 18:51 Last Admin: 07/26/16 19:24 Dose: 500 mls Lorazepam (Ativan Injection) 1 mg IVP EDNOW ONE Stop: 07/26/16 18:51 Last Admin: 07/26/16 19:23 Dose: 1 mg Departure - Departure Disposition: Home, Routine, Self-Care Clinical Impression: Palpitations, Dehydration, Anxiety Condition: Good Instructions: Palpitations (ED), Anxiety (ED) Additional Instructions: 1. Stay well-hydrated. 2. Return emergency room if any further symptoms questions or concerns. 3. I do recommend he follow up with Dr. Chawla. Referrals: Patient,NotPresent [Unknown] - As per Instructions Corby Chawla MD [Medical Doctor] - As per Instructions
[2016-07-26] MEDS ORDERED: LORazepam 2 MG/ML INJ IVP ONE (18:50)
[2016-07-26] MEDS ORDERED: NS 500 ML IV ONE (18:50)
[2016-07-26] MEDS ORDERED: NS 1,000 ML IV ONE (18:50)
[2016-07-26 18:59] LABS: % IMMATURE GRANULYOCYTES 0.2 % (0.0-1.1); ABSOLUTE IMMATURE GRANULOCYTES 0.02 10^3/uL (0.00-0.10); ADD DIFF? NO; ADD MORPH? NO; ADD SCAN? NO; ATYPICAL LYMPHOCYTE FLAG 0 (0-99); FRAGMENT RBC FLAG 0 (0-99); HEMATOCRIT 45.4 % (38.0-47.0); HEMOGLOBIN 15.4 g/dL (12.6-16.3); LEFT SHIFT FLG 0 (0-99); LIPEMIA HEMOLYSIS FLAG 90 (0-99); MEAN CELL HEMOGLOBIN 28.3 pg (27.9-34.1); MEAN CELL HEMOGLOBIN CONCENTR. 33.9 g/dL (32.4-36.7); MEAN CELL VOLUME 83.3 fL (81.5-99.8); MEAN PLATELET VOLUME 10.4 fL (8.7-11.7); PLATELET CLUMPS FLAG 0 (0-99); PLATELET COUNT 365 10^3/uL (150-400); RED BLOOD CELL COUNT 5.45 10^6/uL (4.18-5.33); RED CELL DISTRIBUTION WIDTH 13.7 % (11.5-15.2)
[2016-07-26 19:04] LABS: ALANINE AMINOTRANSFERASE 35 IU/L (9-52); ALBUMIN 4.7 g/dL (3.5-5.0); ALKALINE PHOSPHATASE 101 IU/L (38-126); ANION GAP 12 mEq/L (8-16); ASPARTATE AMINOTRANSFERASE 36 IU/L (14-46); BILIRUBIN,TOTAL 1.4 mg/dL (0.1-1.4); BILIRUBIN-CONJUGATED 0.5 mg/dL (0.0-0.5); BILIRUBIN-UNCONJUGATED 0.9 mg/dL (0.0-1.1); CALCIUM 9.9 mg/dL (8.5-10.4); CARBON DIOXIDE 26 mEq/l (22-31); CHLORIDE 100 mEq/L (97-110); CREATININE 0.7 mg/dL (0.6-1.0); GLOMERULAR FILTRATION RATE > 60; GLUCOSE 110 mg/dL (70-100); MAGNESIUM 2.1 mg/dL (1.6-2.3); POTASSIUM 3.6 mEq/L (3.5-5.2); SODIUM 138 mEq/L (134-144); TOTAL PROTEIN 8.3 g/dL (6.3-8.2)
[2016-07-26 19:16] LABS: CREATINE KINASE-MB FRACTION 0.93 ng/mL (0-3.19); TROPONIN I < 0.012 ng/mL (0-0.034)
[2016-07-26 21:32] VITALS: BP 104/75; PULSE 60; O2SAT 96
== END 2016-07-26 21:32 | disposition home or self-care (01) ==
LOC: EDUNIT# → EEVIPCON 18:20
DX: F41.9 Anxiety disorder, unspecified (principal); E86.0 Dehydration; I10 Essential (primary) hypertension
CPT/HCPCS: 93005; 96361; 96374; 99284; J2060

== ENCOUNTER 2016-07-29 12:13 | Emergency (ER) | payer OTHER, MEDICAID ==
[2016-07-29 12:23] VITALS: RESP 16
--- NOTE | 2016-07-29 12:29 | CPEKG ---
Heart Rate: 79 RR Interval: 759 P-R Interval: 184 QRSD Interval: 90 QT Interval: 392 QTC Interval: 450 P [place]: 39 QRS [place]: -6 T Wave [place]: 7 EKG Severity - BORDERLINE ECG - EKG Impression: SINUS RHYTHM EKG Impression: PROBABLE LEFT ATRIAL ABNORMALITY Electronically Signed By: Messi Trejo 30-Jul-2016 08:02:19
--- NOTE | 2016-07-29 13:04 | EDPHY ---
H & P Stated Complaint: ?SVT & chest pain pt took metoprol in field Time Seen by Provider: 07/29/16 12:52 HPI/ROS: CHIEF COMPLAINT: Anxiety HISTORY OF PRESENT ILLNESS: Patient is a 55-year-old female with a history of SVT, fibromyalgia, chronic pain, dissociative personality disorder, anxiety and depression who comes to the emergency department from her therapist's office after a panic attack. She was very frustrated and angry because the buses were not running on time and she got to her therapist late. While she was there she began hyperventilating and had an anxiety attack. She felt like her heart was racing and began to have chest pain. She took a metoprolol that is prescribed by Dr. Oswald. Her heart rate was 120. Her therapist called 911. When paramedics arrived her heart rate was in the 80s and her blood pressure was stable. She denies shortness of breath or chest pain any longer. This is her 6th visit to the emergency department this month for similar symptoms. She has an appointment with Dr. Chawla to consider cardiac ablation on the . She does complain of fatigue and mild dizziness but states that this is likely due her to her fibromyalgia and that she often feels this way. She denies any recent fevers or illness. She does state that she has not taken her other medications including opiates for day or two because she forgot. REVIEW OF SYSTEMS: Constitutional: denies: chills, fever, recent illness, recent injury EENTM: denies: blurred vision, double vision, nose congestion Respiratory: denies: cough, shortness of breath Cardiac: denies: chest pain, irregular heart rate, lightheadedness, palpitations Gastrointestinal/Abdominal: denies: abdominal pain, diarrhea, nausea, vomiting, blood streaked stools Genitourinary: denies: dysuria, frequency, hematuria, pain Musculoskeletal: denies: joint pain, muscle pain Skin: denies: lesions, rash, jaundice, bruising Neurological: denies: headache, numbness, paresthesia, tingling, dizziness, weakness Hematologic/Lymphatic: denies: blood clots, easy bleeding, easy bruising Immunologic/allergic: denies: HIV/AIDS, transplant EXAM: GENERAL: Well-appearing, well-nourished and in no acute distress. HEAD: Atraumatic, normocephalic. EYES: Pupils equal round and reactive to light, extraocular movements intact, sclera anicteric, conjunctiva are normal. ENT: TMs normal, nares patent, oropharynx clear without exudates. Moist mucous membranes. NECK: Normal range of motion, supple without lymphadenopathy or JVD. LUNGS: Breath sounds clear to auscultation bilaterally and equal. No wheezes rales or rhonchi. HEART: Regular rate and rhythm without murmurs, rubs or gallops. ABDOMEN: Soft, nontender, normoactive bowel sounds. No guarding, no rebound. No masses appreciated. BACK: No CVA tenderness, no spinal tenderness, step-offs or deformities EXTREMITIES: Normal range of motion, no pitting or edema. No clubbing or cyanosis. NEUROLOGICAL: Cranial nerves II through XII grossly intact. Normal speech, normal gait. 5/5 strength, normal movement in all extremities, normal sensation PSYCH: Normal mood, normal affect. SKIN: Warm, dry, normal turgor, no visible rashes or lesions. Source: Patient, Old records - Personal History Current Tetanus/Diphtheria Vaccine: Yes Current Tetanus Diphtheria and Acellular Pertussis (TDAP): Yes Tetanus Vaccine Date: 2016 - Medical/Surgical History Hx Asthma: No Hx Chronic Respiratory Disease: No Hx Diabetes: No Hx Cardiac Disease: Yes Hx Renal Disease: No Hx Cirrhosis: No Hx Alcoholism: No Hx HIV/AIDS: No Hx Splenectomy or Spleen Trauma: No Other PMH: SVT, Fibromyalgia, HTN, TONSILECTOMY, Chronic pain on opiates, dissacossiative identity disorder.hiatial hernia, depression, anxiety. PS- refuses to state more.gi upset - Family History Significant Family History: No pertinent family hx - Social History Smoking Status: Never smoked Alcohol Use: Sober Drug Use: None Constitutional: Initial Vital Signs Temperature (C) 37.2 C 07/29/16 12:15 Heart Rate 87 07/29/16 12:15 Respiratory Rate 16 07/29/16 12:15 Blood Pressure 129/94 H 07/29/16 12:15 O2 Sat (%) 93 07/29/16 12:15 O2 Delivery Mode Room Air O2 (L/minute) 2 Allergies/Adverse Reactions: hydrocodone [Hydrocodone] Allergy (Mild, Verified 07/26/16 18:36) heart races Penicillins Allergy (Mild, Verified 07/26/16 18:36) Rash clindamycin Allergy (Unknown, Verified 07/26/16 18:36) fluconazole Allergy (Unknown, Verified 07/26/16 18:36) metoclopramide Allergy (Unknown, Verified 07/26/16 18:36) Home Medications: Medication Instructions Recorded Albuterol [Proventil Inhaler HFA 1 - 2 puffs IH Q4H PRN 05/15/16 (*)] DULoxetine [Cymbalta 30 MG (*)] 30 mg PO HS 05/15/16 DULoxetine [Cymbalta 60 MG (*)] 60 mg PO HS 05/15/16 Enalapril Maleate [Vasotec 5 MG 5 mg PO DAILY 05/15/16 (*)] Esomeprazole Magnesium 40 mg PO DAILY 05/15/16 Estradiol [Estrace Vaginal (*)] 1 ciarra VG DAILY PRN 05/15/16 Hydrochlorothiazide [HCTZ (*)] 25 mg PO DAILY 05/15/16 Pregabalin [LYRICA] 200 mg PO HS 05/15/16 Psyllium Husk (with Sugar) 1 each PO DAILY 05/15/16 [Metamucil Packet] Vitamin B Complex [B Complex] 1 each PO DAILY 05/15/16 LYRICA 07/26/16 Metoprolol Succinate 07/26/16 Ranitidine HCl 07/26/16 Medical Decision Making ED Course/Re-evaluation: The patient is normal appearing on my examination other than stating that she is fatigue and is wearing sunglasses indoors. She does not have any chest pain or shortness of breath. Her vital signs are stable. She is saturating 94% on room air in his clear breath sounds. We discussed options and at this point she would like to go home. She does not wish to have further workup or repeat testing similar to her previous visits. She did have a CT scan chest angiogram a few days ago that was negative. We discussed indications for returning to the emergency department. Differential Diagnosis: Partial list of the Differential diagnosis considered include but were not limited to; anxiety, SVT, depression, fibromyalgia and although unlikely based on the history and physical exam, I also considered PE, acute coronary disease, myocardial infarction dissection, pneumothorax, pneumonia, sepsis. I discussed these differential diagnoses and the plan with the patient as well as the usual and expected course. The patient understands that the diagnosis is provisional and that in medicine we are not always correct and that further workup is often warranted. Usual and customary warnings were given. All of the patient's questions were answered. The patient was instructed to return to the emergency department should the symptoms at all worsen or return, otherwise to followup with the physician as we discussed. Departure - Departure Disposition: Home, Routine, Self-Care Clinical Impression: Anxiety Depression Qualifiers: Depression Type: major depressive disorder Major depression recurrence: recurrent Active/Remission status: currently active Major depression episode severity: severe Psychotic features: without psychotic features Qualified Code(s ): F33.2 - Major depressive disorder, recurrent severe without psychotic features Condition: Fair Instructions: Anxiety (ED) Referrals: Victoria Armendariz MD [Primary Care Provider] - As per Instructions
[2016-07-29 13:13] VITALS: BP 129/90; PULSE 64; TEMP 97.3; O2SAT 90
== END 2016-07-29 13:13 | disposition home or self-care (01) ==
LOC: EDUNIT#
DX: F41.9 Anxiety disorder, unspecified (principal); F33.2 Major depressive disorder, recurrent severe without psychotic features; I10 Essential (primary) hypertension

== ENCOUNTER → 2016-08-12 | Outpatient (CLI) | payer OTHER, MEDICAID | LOC: BHFA 11:45 | PROVIDERS: ATTEND Internal Medicine Cardiovascular Disease | DX: I47.1 Supraventricular tachycardia (principal) ==

== ENCOUNTER 2016-09-02 04:34 | Emergency (ER) | payer OTHER, MEDICAID ==
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
[2016-09-02] MEDS ORDERED: NS 1,000 ML IV ONE (04:47)
[2016-09-02] MEDS ORDERED: LORazepam 2 MG/ML INJ IVP ONE (04:47)
[2016-09-02] MEDS ORDERED: MAG HYDROX/AL HYDROX/SIMETH 30 ML UDCUP PO ONE (04:48)
[2016-09-02] MEDS ORDERED: LIDOCAINE 2% VISCOUS 15 ML UDCUP PO ONE (04:48)
[2016-09-02] MEDS ORDERED: HYOSCYAMINE SULFATE 0.125 MG TAB PO ONE (04:48)
[2016-09-02 04:50] VITALS: RESP 16; TEMP 97.9
--- NOTE | 2016-09-02 04:55 | CPEKG ---
Heart Rate: 61 RR Interval: 984 P-R Interval: 224 QRSD Interval: 90 QT Interval: 448 QTC Interval: 452 P [place]: 37 QRS [place]: 14 T Wave [place]: 27 EKG Severity - ABNORMAL ECG - EKG Impression: SINUS RHYTHM EKG Impression: FIRST DEGREE AV BLOCK Electronically Signed By: Cornelio Orta 02-Sep-2016 06:50:16
[2016-09-02 04:56] LABS: % IMMATURE GRANULYOCYTES 0.3 % (0.0-1.1); ABSOLUTE IMMATURE GRANULOCYTES 0.03 10^3/uL (0.00-0.10); ADD DIFF? NO; ADD MORPH? NO; ADD SCAN? NO; ATYPICAL LYMPHOCYTE FLAG 0 (0-99); FRAGMENT RBC FLAG 0 (0-99); HEMATOCRIT 43.6 % (38.0-47.0); HEMOGLOBIN 14.4 g/dL (12.6-16.3); LEFT SHIFT FLG 0 (0-99); LIPEMIA HEMOLYSIS FLAG 80 (0-99); MEAN CELL HEMOGLOBIN 28.7 pg (27.9-34.1); MEAN PLATELET VOLUME 10.9 fL (8.7-11.7); PLATELET CLUMPS FLAG 0 (0-99); PLATELET COUNT 306 10^3/uL (150-400); RED BLOOD CELL COUNT 5.01 10^6/uL (4.18-5.33); RED CELL DISTRIBUTION WIDTH 13.5 % (11.5-15.2)
[2016-09-02 05:07] LABS: INR 1.02 (0.83-1.16); PROTIME(PATIENT) 13.3 SEC (12.0-15.0)
[2016-09-02 05:08] LABS: APTT 31.1 SEC (23.0-38.0)
[2016-09-02 05:12] LABS: ALANINE AMINOTRANSFERASE 34 IU/L (9-52); ALBUMIN 4.2 g/dL (3.5-5.0); ALKALINE PHOSPHATASE 83 IU/L (38-126); ANION GAP 12 mEq/L (8-16); ASPARTATE AMINOTRANSFERASE 23 IU/L (14-46); BILIRUBIN,TOTAL 0.7 mg/dL (0.1-1.4); BILIRUBIN-CONJUGATED 0.3 mg/dL (0.0-0.5); BILIRUBIN-UNCONJUGATED 0.4 mg/dL (0.0-1.1); CALCIUM 9.2 mg/dL (8.5-10.4); CARBON DIOXIDE 26 mEq/l (22-31); CHLORIDE 106 mEq/L (97-110); CREATININE 0.8 mg/dL (0.6-1.0); GLOMERULAR FILTRATION RATE > 60; GLUCOSE 99 mg/dL (70-100); POTASSIUM 3.7 mEq/L (3.5-5.2); SODIUM 144 mEq/L (134-144); TOTAL PROTEIN 7.1 g/dL (6.3-8.2)
[2016-09-02 05:24] LABS: CREATINE KINASE-MB FRACTION 1.09 ng/mL (0-3.19); TROPONIN I < 0.012 ng/mL (0-0.034)
[2016-09-02 06:33] VITALS: BP 118/62; PULSE 62; O2SAT 97
== END 2016-09-02 06:32 | disposition home or self-care (01) ==
LOC: EDUNIT#
DX: F41.9 Anxiety disorder, unspecified (principal); I10 Essential (primary) hypertension; E86.9 Volume depletion, unspecified
CPT/HCPCS: 71010; 93005; 96360; 99285; J2060

== ENCOUNTER 2016-09-26 17:46 | Emergency (ER) | payer OTHER, MEDICAID ==
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
[2016-09-26 18:01] VITALS: TEMP 98.4
[2016-09-26 19:19] VITALS: BP 118/71; PULSE 79; RESP 16; O2SAT 95
== END 2016-09-26 19:19 | disposition home or self-care (01) ==
LOC: EDUNIT#
DX: S16.1XXA Strain of muscle, fascia and tendon at neck level, initial encounter (principal); I10 Essential (primary) hypertension; W01.0XXA Fall on same level from slipping, tripping and stumbling without subsequent striking against object, initial encounter; Y99.8 Other external cause status

== ENCOUNTER 2016-10-04 13:19 | Emergency (ER) | payer OTHER, MEDICAID ==
[2016-10-04 13:36] VITALS: O2SAT 94
[2016-10-04] MEDS ORDERED: ASPIRIN 81 MG CHEWABLE TAB PO ONE (13:36)
--- NOTE | 2016-10-04 13:39 | CPEKG ---
Heart Rate: 61 RR Interval: 984 P-R Interval: 192 QRSD Interval: 90 QT Interval: 452 QTC Interval: 456 P [place]: 38 QRS [place]: 18 T Wave [place]: 22 EKG Severity - NORMAL ECG - EKG Impression: SINUS RHYTHM Electronically Signed By: Paulie Garrett 04-Oct-2016 15:17:33
[2016-10-04 13:59] LABS: % IMMATURE GRANULYOCYTES 0.7 % (0.0-1.1); ABSOLUTE IMMATURE GRANULOCYTES 0.06 10^3/uL (0.00-0.10); ADD DIFF? NO; ADD MORPH? NO; ADD SCAN? NO; ATYPICAL LYMPHOCYTE FLAG 0 (0-99); FRAGMENT RBC FLAG 0 (0-99); HEMATOCRIT 46.5 % (38.0-47.0); HEMOGLOBIN 15.5 g/dL (12.6-16.3); LEFT SHIFT FLG 0 (0-99); LIPEMIA HEMOLYSIS FLAG 80 (0-99); MEAN CELL HEMOGLOBIN 28.4 pg (27.9-34.1); MEAN CELL HEMOGLOBIN CONCENTR. 33.3 g/dL (32.4-36.7); MEAN CELL VOLUME 85.3 fL (81.5-99.8); PLATELET CLUMPS FLAG 10 (0-99); PLATELET COUNT 333 10^3/uL (150-400); RED BLOOD CELL COUNT 5.45 10^6/uL (4.18-5.33); RED CELL DISTRIBUTION WIDTH 13.3 % (11.5-15.2)
[2016-10-04] MEDS ORDERED: NS 1,000 ML IV ONE (14:00)
[2016-10-04 14:12] VITALS: RESP 16
[2016-10-04 14:16] LABS: ALANINE AMINOTRANSFERASE 37 IU/L (9-52); ALKALINE PHOSPHATASE 95 IU/L (38-126); ANION GAP 13 mEq/L (8-16); ASPARTATE AMINOTRANSFERASE 23 IU/L (14-46); BILIRUBIN,TOTAL 0.5 mg/dL (0.1-1.4); CALCIUM 9.3 mg/dL (8.5-10.4); CARBON DIOXIDE 25 mEq/l (22-31); CHLORIDE 105 mEq/L (97-110); CREATININE 0.7 mg/dL (0.6-1.0); GLOMERULAR FILTRATION RATE > 60; GLUCOSE 94 mg/dL (70-100); POTASSIUM 4.3 mEq/L (3.5-5.2); SODIUM 143 mEq/L (134-144)
[2016-10-04 14:26] LABS: CREATINE KINASE-MB FRACTION 0.83 ng/mL (0-4.55); TROPONIN I < 0.012 ng/mL (0-0.034)
--- NOTE | 2016-10-04 14:32 | EDPHY ---
H & P Stated Complaint: heart palpitations, dizzy this early this am Time Seen by Provider: 10/04/16 13:33 HPI/ROS: This patient was recently diagnosed with PSVT and is on atenolol. She has been taking 25 mg in the morning and 75 mg at night. This morning she developed feeling of racing vibrating heart associated with lightheadedness in took an extra atenolol 25 mg with the symptoms at 5:00 a.m.. She had persistent symptoms for 2 hours and came in for evaluation. She reports that her heart palpitations resolved prior to arrival and she is now improving in terms of her symptoms. ROS: No recent fevers or chills. No significant fatigue. HEENT: No recent URI symptoms or other complaints Pulmonary: No significant dyspnea with her symptoms. No coughing. Cardiovascular: No chest pain. No lower extremity swelling or calf pain. GI: No nausea or vomiting. New abdominal pain : No complaints integumentary: No complaints Neuro: No complaints 10 point ROS is otherwise negative. Source: Patient Exam Limitations: No limitations - Personal History Tetanus Vaccine Date: 2016 - Medical/Surgical History PMH: PSVT scheduled for a ablation with Dr. Chawla in 3 weeks. Hx Asthma: No Hx Chronic Respiratory Disease: No Hx Diabetes: No Hx Cardiac Disease: Yes Hx Renal Disease: No Hx Cirrhosis: No Hx Alcoholism: No Hx HIV/AIDS: No Hx Splenectomy or Spleen Trauma: No Other PMH: SVT, Fibromyalgia, HTN, TONSILECTOMY, dissacossiative identity disorder.hiatial hernia, depression, anxiety - Family History Significant Family History: No pertinent family hx - Social History Smoking Status: Never smoked Alcohol Use: None Drug Use: None - Physical Exam Exam: General Appearance: Alert, no distress. Eyes: Pupils equal and round no pallor or injection. ENT, Mouth: Mucous membranes moist. Respiratory: There are no retractions, lungs are clear to auscultation. Cardiovascular: Regular rate and rhythm. No murmur gallop rub. No leg swelling or tenderness. Gastrointestinal: Abdomen is soft and nontender, no masses, bowel sounds normal. Neurological: GCS 15. Skin: Warm and dry, no rashes. Musculoskeletal: Neck is supple nontender. Extremities are symmetrical, full range of motion. Psychiatric: Mood and affect are normal DIFFERENTIAL DIAGNOSIS: After history and physical exam differential diagnosis was considered for episode of PSVT that likely resolve with extra dose of atenolol, anxiety, other dysrhythmia, metabolic disarray/electrolyte abnormality , anemia Constitutional: Initial Vital Signs Temperature (C) 36.4 C 10/04/16 13:34 Heart Rate 67 10/04/16 13:34 Respiratory Rate 18 10/04/16 13:34 Blood Pressure 136/88 H 10/04/16 13:34 O2 Sat (%) 94 10/04/16 13:34 O2 Delivery Mode Room Air Allergies/Adverse Reactions: hydrocodone [Hydrocodone] Allergy (Mild, Verified 10/04/16 13:33) heart races Penicillins Allergy (Mild, Verified 10/04/16 13:33) Rash clindamycin Allergy (Unknown, Verified 10/04/16 13:33) fluconazole Allergy (Unknown, Verified 10/04/16 13:33) metoclopramide Allergy (Unknown, Verified 10/04/16 13:33) lorazepam [From Ativan] Allergy (Verified 10/04/16 13:33) Home Medications: Medication Instructions Recorded DULoxetine [Cymbalta 60 MG (*)] 60 mg PO HS 05/15/16 LYRICA 07/26/16 Atenolol [Tenormin 25 mg (*)] 25 mg PO DAILY 09/02/16 Esomeprazole Magnesium [Nexium] 20 mg PO 09/02/16 Ranitidine HCl 150 mg PO 09/02/16 Medical Decision Making - Diagnostics EKG Interpretation: 12 lead EKG performed at 1:30 p.m. indication heart palpitations RO dysrhythmia coronary syndrome reveals sinus rhythm at 61 Intervals: Normal throughout [place]: Normal throughout ST segments: Normal throughout Overall assessment normal EKG ED Course/Re-evaluation: IV normal saline bolus. Patient is placed on a monitor and remained stable in a sinus rhythm for the duration of her course. A review of her labs rules out anemia or significant metabolic abnormalities or electrolyte abnormalities. She also has a normal troponin. Findings are most consistent with that episode of PSVT resolved prior to arrival based on her history. I think that she should have 50 mg of Tylenol in the morning and continue with 75 mg at night. I counseled her regarding this. She understands the plan. She will follow up with Dr. Chawla. She will return for any significant recurrence of her symptoms despite the treatment plan. - Data Points Laboratory Results: Laboratory Results 10/04/16 13:40 10/04/16 13:40 Medications Given: Discontinued Medications Aspirin (Aspirin) 324 mg PO EDNOW ONE Stop: 10/04/16 13:37 Last Admin: 10/04/16 13:43 Dose: 324 mg Sodium Chloride (Ns) 1,000 mls @ 0 mls/hr IV EDNOW ONE; Wide Open PRN Reason: Protocol Stop: 10/04/16 14:01 Last Admin: 10/04/16 14:09 Dose: 1,000 mls Departure - Departure Disposition: Home, Routine, Self-Care Clinical Impression: Heart palpitations Condition: Good Instructions: Palpitations (ED) Additional Instructions: Diagnosis: Heart palpitations Plan: Increase your atenolol also 50 mg a day Continue other medications Drink plenty fluids Return for any significant worsening despite the treatment plan. Return for any significant recurrence of symptoms despite the treatment plan Referrals: UNKNOWN,UNKNOWN [Primary Care Provider] - As per Instructions
[2016-10-04 14:54] VITALS: BP 123/85; PULSE 54; TEMP 97.7
== END 2016-10-04 14:50 | disposition home or self-care (01) ==
LOC: CED 13:19
DX: R00.2 Palpitations (principal); E86.9 Volume depletion, unspecified; I10 Essential (primary) hypertension
CPT/HCPCS: 80053-PO; 82550-PO; 82553-PO; 84484-PO; 85025-PO

== ENCOUNTER 2016-10-11 11:16 | Emergency (ER) | payer OTHER, MEDICAID ==
--- NOTE | 2016-10-11 11:28 | CPEKG ---
Heart Rate: 59 RR Interval: 1017 P-R Interval: 224 QRSD Interval: 84 QT Interval: 448 QTC Interval: 444 P [place]: 24 QRS [place]: 35 T Wave [place]: 38 EKG Severity - ABNORMAL ECG - EKG Impression: SINUS RHYTHM EKG Impression: FIRST DEGREE AV BLOCK Electronically Signed By: Corby Chawla 13-Oct-2016 14:00:46
[2016-10-11 11:41] VITALS: TEMP 98.6
[2016-10-11] MEDS ORDERED: ASPIRIN 81 MG CHEWABLE TAB PO ONE (12:06)
[2016-10-11 12:14] LABS: % IMMATURE GRANULYOCYTES 0.5 % (0.0-1.1); ABSOLUTE IMMATURE GRANULOCYTES 0.04 10^3/uL (0.00-0.10); ADD DIFF? NO; ADD MORPH? NO; ADD SCAN? NO; ATYPICAL LYMPHOCYTE FLAG 0 (0-99); FRAGMENT RBC FLAG 0 (0-99); HEMATOCRIT 46.4 % (38.0-47.0); HEMOGLOBIN 15.3 g/dL (12.6-16.3); LEFT SHIFT FLG 0 (0-99); LIPEMIA HEMOLYSIS FLAG 80 (0-99); MEAN CELL HEMOGLOBIN 28.4 pg (27.9-34.1); MEAN CELL VOLUME 86.1 fL (81.5-99.8); MEAN PLATELET VOLUME 11.3 fL (8.7-11.7); PLATELET CLUMPS FLAG 0 (0-99); PLATELET COUNT 310 10^3/uL (150-400); RED BLOOD CELL COUNT 5.39 10^6/uL (4.18-5.33); RED CELL DISTRIBUTION WIDTH 13.6 % (11.5-15.2)
[2016-10-11] MEDS ORDERED: LIDOCAINE 2% VISCOUS 15 ML UDCUP PO ONE (12:18)
[2016-10-11] MEDS ORDERED: HYOSCYAMINE SULFATE 0.125 MG TAB PO ONE (12:18)
[2016-10-11] MEDS ORDERED: MAG HYDROX/AL HYDROX/SIMETH 30 ML UDCUP PO ONE (12:18)
[2016-10-11 12:20] VITALS: RESP 16
[2016-10-11 12:32] LABS: TROPONIN I < 0.012 ng/mL (0.000-0.034)
--- NOTE | 2016-10-11 12:52 | EDPHY ---
HPI/HX/ROS/PE/MDM Narrative: CHIEF COMPLAINT: Chest pain, nausea HISTORY OF PRESENT ILLNESS: The patient is a 55 y/o female, with 17 prior ED visits in the last year, complaining of intermittent chest pain onset yesterday. She describes her pain as sharp and says each episode can last a couple minutes, can be brief, or can last 30 minutes. She has associated dizziness and nausea that improves when she lies down. Her pain is aggravated when she pushes on her chest. No radiation. No clear increse with exertion. Deep inspiration does not change her pain. Has had increased belching. Her symptoms today feel similar to prior episodes of acid reflux and prior episodes of SVT, though the pain is higher in her chest, and she does not have palpitations or noted rapid heart rate. She denies history of blood clots or diabetes. Her cardiac risk factors include hypertension and hyperlipidemia. Last CAD risk statification was a nuclear medicine stress test in April 2016. No fever, chills, shortness of breath, palpitations, vomiting, diarrhea, urinary complaints, headache, lightheadedness. REVIEW OF SYSTEMS: Aside from elements discussed in the HPI, a comprehensive 10-point review of systems was reviewed and is negative. PAST MEDICAL HISTORY: Acid reflux - Nexium and Ranitidine, SVT with ablation - atenolol, hypertension, hyperlipidemia, chronic pain SOCIAL HISTORY: Nonsmoker. Occasional alcohol use. 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 VITAL SIGNS: Reviewed by me GENERAL: Well-developed, well-nourished, resting comfortably in no respiratory distress. Wearing sunglasses. HEENT: Atraumatic. Eyes: No icterus, no injection. Mouth: moist mucous membranes. No erythema or lesions. Neck: supple with no adenopathy. LUNGS: Clear to auscultation bilaterally, no wheezes, rhonchi or rales. CARDIAC: Regular rate and rhythm, no rubs, murmurs or gallops. No chest wall pain, no crepitus. ABDOMEN: Soft, mild epigastric pain, nondistended, bowel sounds normal. BACK: No CVA tenderness. EXTREMITIES: No trauma. No edema. Range of motion is normal throughout. NEURO: Alert and oriented, grossly nonfocal. SKIN: Warm and dry, no rash. PSYCHIATRIC: Normal mentation, no agitation. Portions of this note were transcribed by a emergency medicine medical director. I personally performed a history, physical exam, medical decision making, and confirmed accuracy of information the transcribed note. ED Course: This is a 55 y/o female well-known to this department with a history of SVT and acid reflux who presents with a 1-day history of chest pain. Her exam is unremarkable except for inconsistant epigastric pain. Plan for chest pain work up including IV, labs, EKG, and chest x-ray. 324mg PO aspirin and PO GI cocktail administered. 12-LEAD EKG: Please see the full report in [facility]. My interpretation: Normal sinus rhythm rate 59, 1st degree AV block. Chest x-ray is negative. Her d-dimer is mildly elevated at .54, so we will perform a chest CTA to rule out PE. She agrees with imaging. Care discussed with [facility] from [facility]. Records reviewed and patient indeed had normal stress test done within past [address] scan neg for PE. Reassessed patient. Feel patient safe for discharge. Normal recent stress test , non-ischemic EKG, normal troponin. Pain now relieved a bit with belching. CT scan for PE negative for clot, some mild inflammation noted near GE junction and possible hiatal hernia. Patient advised to continue dual therapy for GI discomfort and to follow up wipramod Jones for upper gi or esophagogram. MDM: After history and physical examination, the differential for chest pain was considered, including but not limited to, myocardial ischemia, acute coronary syndrome, pulmonary embolus, chest wall pain, pleural inflammation, pulmonary infectious causes, reflux, gastritis, GI source. - Data Points Imaging: Discussed imaging studies w/ freight caller Radiologist, I viewed and interpreted images myself Laboratory Results: Laboratory Results 10/11/16 11:25 10/11/16 11:25 Medications Given: Discontinued Medications Al Hydroxide/Mg Hydroxide (Maalox Susp) 30 ml PO ONCE ONE Stop: 10/11/16 12:19 Last Admin: 10/11/16 12:48 Dose: 30 ml Aspirin (Aspirin) 324 mg PO EDNOW ONE Stop: 10/11/16 12:07 Last Admin: 10/11/16 12:15 Dose: Not Given Hyoscyamine Sulfate (Levsin, Hyomax-Sl) 0.25 mg PO ONCE ONE Stop: 10/11/16 12:19 Last Admin: 10/11/16 12:48 Dose: 0.25 mg Lidocaine (Lidocaine 2% Viscous) 15 ml PO ONCE ONE Stop: 10/11/16 12:19 Last Admin: 10/11/16 12:48 Dose: 15 ml General Time Seen by Provider: 10/11/16 11:54 Initial Vital Signs: Initial Vital Signs Temperature (C) 37.0 C 10/11/16 11:16 Heart Rate 57 L 10/11/16 11:16 Respiratory Rate 15 10/11/16 11:16 Blood Pressure 139/95 H 10/11/16 11:16 O2 Sat (%) 94 10/11/16 11:16 O2 Delivery Mode Room Air O2 (L/minute) 2 Allergies/Adverse Reactions: hydrocodone [Hydrocodone] Allergy (Mild, Verified 10/04/16 13:33) heart races Penicillins Allergy (Mild, Verified 10/04/16 13:33) Rash clindamycin Allergy (Unknown, Verified 10/04/16 13:33) fluconazole Allergy (Unknown, Verified 10/04/16 13:33) metoclopramide Allergy (Unknown, Verified 10/04/16 13:33) lorazepam [From Ativan] Allergy (Verified 10/04/16 13:33) Home Medications: Medication Instructions Recorded DULoxetine [Cymbalta 60 MG (*)] 60 mg PO HS 05/15/16 LYRICA 07/26/16 Atenolol [Tenormin 25 mg (*)] 25 mg PO DAILY 09/02/16 Esomeprazole Magnesium [Nexium] 20 mg PO 09/02/16 Ranitidine HCl 150 mg PO 09/02/16 Departure - Departure Disposition: Home, Routine, Self-Care Clinical Impression: Chest pain Qualifiers: Chest pain type: unspecified Qualified Code(s): R07.9 - Chest pain, unspecified Condition: Good Instructions: Chest Pain (ED) Additional Instructions: Please keep your follow-up appointment with Dr. Chawla. Your discomfort may be related to an esophageal issue. It is important that you follow up with a maintenance team leader. You been given referral to Dr. Suarez or Dr Jones. Please call and make an appointment with someone in that office as soon as possible. Please continue to take the Nexium and the ranitidine as directed. Referrals: Kavin Suarez MD [Medical Doctor] - As per Instructions Report Scribed for: Sanjuanita Gutierrez Report Scribed by: Ary Quiroz Date of Report: 10/11/16 Time of Report: 12:52
[2016-10-11 12:53] LABS: ANION GAP 11 mEq/L (8-16); CALCIUM 9.4 mg/dL (8.5-10.4); CARBON DIOXIDE 27 mEq/l (22-31); CHLORIDE 102 mEq/L (97-110); CREATININE 0.8 mg/dL (0.6-1.0); GLOMERULAR FILTRATION RATE > 60; GLUCOSE 101 mg/dL (70-100); POTASSIUM 4.1 mEq/L (3.5-5.2); SODIUM 140 mEq/L (134-144)
[2016-10-11] MEDS ORDERED: IOPAMIDOL (ISOVUE 370) 100 ML BTL IV ONE (13:44)
[2016-10-11 16:36] VITALS: BP 129/90; PULSE 50; O2SAT 95
== END 2016-10-11 16:35 | disposition home or self-care (01) ==
LOC: EDUNIT#
DX: R07.9 Chest pain, unspecified (principal); I10 Essential (primary) hypertension
CPT/HCPCS: 71020; 71275; 93005; 99285; Q9967

== ENCOUNTER 2016-10-26 11:08 | Observation (INO) | payer OTHER, MEDICAID ==
[2016-10-26] MEDS ORDERED: MIDAZOLAM 2 MG/2 ML VIAL IVP ONE (11:22)
[2016-10-26] MEDS ORDERED: NS 1,000 ML IV ONE (11:22)
--- NOTE | 2016-10-26 12:10 | CPEKG ---
Heart Rate: 63 RR Interval: 952 P-R Interval: 196 QRSD Interval: 90 QT Interval: 440 QTC Interval: 451 P [place]: 35 QRS [place]: 35 T Wave [place]: 28 EKG Severity - NORMAL ECG - EKG Impression: SINUS RHYTHM Electronically Signed By: Mike Shah 26-Oct-2016 12:41:03
[2016-10-26 12:33] LABS: % IMMATURE GRANULYOCYTES 0.4 % (0.0-1.1); ABSOLUTE IMMATURE GRANULOCYTES 0.03 10^3/uL (0.00-0.10); ADD DIFF? NO; ADD MORPH? NO; ADD SCAN? NO; ATYPICAL LYMPHOCYTE FLAG 10 (0-99); FRAGMENT RBC FLAG 10 (0-99); HEMATOCRIT 44.7 % (38.0-47.0); HEMOGLOBIN 14.9 g/dL (12.6-16.3); LEFT SHIFT FLG 0 (0-99); LIPEMIA HEMOLYSIS FLAG 80 (0-99); MEAN CELL HEMOGLOBIN 28.3 pg (27.9-34.1); MEAN CELL HEMOGLOBIN CONCENTR. 33.3 g/dL (32.4-36.7); MEAN PLATELET VOLUME 10.8 fL (8.7-11.7); PLATELET CLUMPS FLAG 10 (0-99); PLATELET COUNT 303 10^3/uL (150-400); RED BLOOD CELL COUNT 5.26 10^6/uL (4.18-5.33); RED CELL DISTRIBUTION WIDTH 13.8 % (11.5-15.2)
[2016-10-26 12:41] LABS: INR 1.03 (0.83-1.16); PROTIME(PATIENT) 13.4 SEC (12.0-15.0)
[2016-10-26 12:42] LABS: APTT 31.5 SEC (23.0-38.0)
[2016-10-26 12:43] LABS: ANION GAP 14 mEq/L (8-16); CALCIUM 9.6 mg/dL (8.5-10.4); CARBON DIOXIDE 25 mEq/l (22-31); CHLORIDE 105 mEq/L (97-110); CREATININE 0.8 mg/dL (0.6-1.0); GLOMERULAR FILTRATION RATE > 60; GLUCOSE 113 mg/dL (70-100); MAGNESIUM 1.9 mg/dL (1.6-2.3); POTASSIUM 3.8 mEq/L (3.5-5.2); SODIUM 144 mEq/L (134-144)
--- NOTE | 2016-10-26 12:50 | PDHPUP ---
History & Physical Update H&P update statement: This history and physical update is based on an assessment of the patient which was completed after admission or registration (within 24 hours), but prior to the surgery/procedure. H&P update: H&P reviewed & patient examined, no change in patient's condition since H&P completed
[2016-10-26] MEDS ORDERED: LIDOCAINE 1% 300 MG/30 ML SDV ONE (13:09)
[2016-10-26] MEDS ORDERED: HEPARIN 10,000 UNIT/10 ML MDV ONE (13:10)
[2016-10-26] MEDS ORDERED: ISOPROTERENOL HCL/D5W 0.2 MG/50 ML BAG IV ONE (13:10)
[2016-10-26] MEDS ORDERED: BUPIVACAINE 0.5% 30 ML SDV ONE (13:10)
--- NOTE | 2016-10-26 13:25 | PDANEPAE ---
ANE History of Present Illness 55 yo for SVT abaltion ANE Past Medical History - Cardiovascular History Hx Hypertension: No Hx Arrhythmias: Yes Hx Chest Pain: No Hx Coronary Artery / Peripheral Vascular Disease: No Hx CHF / Valvular Disease: No Hx Palpitations: No - Pulmonary History Hx Oxygen in Use at Home: No Hx Sleep Apnea: No - Neurologic History Neurologic History Comment: Depression - Endocrine History Hx Diabetes: No - Chronic Pain History Chronic Pain: Yes (fibromyalgia) ANE Review of Systems - Exercise capacity METS (RN): 4 METS ANE Patient History - Allergies Allergies/Adverse Reactions: hydrocodone [Hydrocodone] Allergy (Mild, Verified 10/04/16 13:33) heart races Penicillins Allergy (Mild, Verified 10/04/16 13:33) Rash clindamycin Allergy (Unknown, Verified 10/04/16 13:33) fluconazole Allergy (Unknown, Verified 10/04/16 13:33) metoclopramide Allergy (Unknown, Verified 10/04/16 13:33) lorazepam [From Ativan] Allergy (Verified 10/04/16 13:33) - Home Medications Home medications: home medication list seen and reviewed Home Medications: DULoxetine [Cymbalta 60 MG (*)] 60 mg PO HS 05/15/16 [Last Taken 10/25/16] Pregabalin [Lyrica] 200 mg PO BID 07/26/16 [Last Taken 10/25/16 09:00] Ranitidine HCl 150 mg PO HS 09/02/16 [Last Taken 10/25/16] Atenolol [Tenormin 50 mg (*)] 50 mg PO DAILY 10/26/16 [Last Taken 10/25/16] Atenolol [Tenormin 50 mg (*)] 75 mg PO HS 10/26/16 [Last Taken 10/25/16] Enalapril Maleate [Vasotec 5 MG (*)] 5 mg PO DAILY 10/26/16 [Last Taken Unknown] Esomeprazole Magnesium [Nexium 24Hr] 20 mg PO DAILY 10/26/16 [Last Taken ] Estradiol [Estrace Vaginal (*)] 1 ciarra VG DAILY PRN 10/26/16 [Last Taken 08:00] Herbals/Supplements -Info Only 1 ea PO DAILY 10/26/16 [Last Taken Unknown] SUMAtriptan [Imitrex 50 MG (*)] 50 mg PO DAILY PRN 10/26/16 [Last Taken Unknown] - Smoking Hx Smoking Status: Never smoked ANE Labs/Vital Signs - Labs Result Diagrams: 10/26/16 12:27 10/26/16 12:27 - Vital Signs Height: 5 ft 4.96 in Weight: 80.8 kg ANE Physical Exam - Airway Neck exam: FROM Mallampati Score: Class 2 - Pulmonary Pulmonary: no respiratory distress - Cardiovascular Cardiovascular: regular rate and rhythym - ASA Status ASA Status: II ANE Anesthesia Plan Anesthesia Plan: general endotracheal anesthesia
--- NOTE | 2016-10-26 13:33 | PDGENHP ---
History & Physical Chief Complaint: SVT History of Present Illness: Symptomatic SVT requiring 2 ED visits Pertinent Past, Social, Family History: None for this procedure Relevant Physical Exam: S1S2 RRR. CTA. A O x 3 Cardiorespiratory Assessment: SVT for ablation today
[2016-10-26] MEDS ORDERED: fentaNYL 100 MCG/2 ML INJ ONE (14:18)
[2016-10-26] MEDS ORDERED: PROPOFOL/EMULSION 500 MG/50 ML BOTTLE IV ONE ×2 (14:18→15:46)
[2016-10-26] MEDS ORDERED: REMIFENTANIL HCL 1 MG VIAL ONE ×2 (14:18→15:45)
[2016-10-26] MEDS ORDERED: ONDANSETRON 4 MG/2 ML VIAL IVP PRN (17:08)
[2016-10-26] MEDS ORDERED: ACETAMINOPHEN 325 MG TAB PO PRN (17:08)
[2016-10-26] MEDS ORDERED: SUMAtriptan 50 MG TAB PO PRN (17:09)
--- NOTE | 2016-10-26 17:17 | EPPROC ---
Electrophysiology Procedure Note: ELECTROPHYSIOLOGIC STUDY AND CATHETER MEDIATED ABLATION OF FAST/slow (atypical ) AV JOHNNY REENTRY TACHYCARDIA PROCEDURES PERFORMED: 15793-83 EP evaluation with RA/RV/LA pace/record, with arrhythmia induction 70574-30 EP evaluation with RA/RV pace record, insert/reposition catheter, with arrhythmia induction 23562 Intracardiac catheter ablation, SVT arrhythmogenic focus 08517 3D mapping Fluoroscopy INDICATION: PROCEDURE: Catheters & Anesthesia: The patient arrived in the Electrophysiology Laboratory in the fasting state. The right clavicular region, right groin, and left groin area were prepped and draped in the usual sterile manner. Anesthesiologist Dr. Cassi Kothari administered general anesthesia. Appropriate non-invasive blood pressure, pulse oximetry and end-tidal CO2 monitoring was established. All catheters were placed percutaneously using the modified Seldinger technique , and advanced into position under fluoroscopic guidance. One #6 [place] hexapolar non-deflectable electrode catheter was inserted into the right atrial appendage via the left femoral vein (2mm spacing; except the proximal ring which was 25cm from the tip used for unipolar recordings). One #7 [place] deflectable octapolar electrode catheter was advanced to the His-bundle position via the left femoral vein (2mm spacing). One #7 [place] deflectable quadrapolar catheter was advanced to the anteroseptal right ventricle via the right femoral vein. One #7 [place] deflectable catheter with 10 pairs of electrodes was placed via the right femoral vein into the coronary sinus. Heparin was given to keep ACT > 200 s. Programmed stimulation was performed from the right atrium, right ventricle and coronary sinus (left atrium). Parahisian pacing demonstrated constant H-A interval with changing V-A intervals and stimulus-A intervals during capture and loss of capture of proximal RBB proving retrograde conduction over AV node. SVT was induced easily during infusion of isoproterenol 2 mcg/min. There was antegrade SP conduction. Tachycardia started with long AH interval. H Hinterval change preceded AA interval change. There was intermittent 2:1 and Wenkebach conduction to the ventricles during SVT. Findings were consistent with AVNRT with AV block though AT could not be definitely ruled out. Patient has presented with adenosine sensitive SVT clinically. Therefore we elected to ablate slow AV johnny pathway. A #8 [place] deflectable quadrapolar electrode catheter (2mm-5mm-2mm spacing) with 4 mm tip electrode and sensor for the 3D mapping Carto system was advanced to the right atrium. 3 D mapping of the inter-atrial septum and coronary sinus was performed and location of the AV node was marked. A SL2 sheath was used. RF applications were delivered to the region between the tricuspid annulus and the coronary sinus ostium, at the level of the upper edge of the coronary sinus ostium. Radiofrequency applications were also delivered along the roof of the proximal coronary sinus. Junctional rhythm occurred during all of the RF applications. Slow AV johnny pathway was present post RF ablation. 8 cryo lesions were delivered to low midseptal TA and anteroapical edge of CS. This eliminated antegrade conduction over slow AV johnny pathway and inducibility of SVT. The catheters were removed. The long sheath was changed to a short 9 Fr sheath. The patient was transferred to the cardiovascular holding area in stable condition. Vascular access sheaths were removed in the holding area. There were no apparent complications. Results: A. Spontaneous Intervals: Pre ablation SCL 1120 ms AH 85 ms HV 45 ms Post ablation SCL 830 ms AH 70 ms HV 45 ms B. Antegrade AV johnny function (decremental pacing) Pre ablation FPERP 620 ms SPERP 400 ms WBB CL 390 ms (AH jump from 220 ms to 310 ms at FPERP) Post ablation FPERP 460 ms WBB CL 450 ms C. Retrograde AV johnny function (decremental pacing) Pre ablation FPERP 500 ms SPERP _490_ ms WBB CL 480 ms D. Arrhythmias: Atypical AVNRT (fast/slow) CL 350-380 ms CONCLUSIONS 1. Atypical AVNRT (fast/slow) 2. Successful ablation of the slow AV johnny pathway with elimination of 1:1 antegrade conduction over the slow AV johnny pathway, all retrograde conduction over the slow AV johnny pathway and the inducibility of AVNRT. 3. No complications. Patient Problems: Problems Problem Status Onset Lightheadedness Acute SVT (supraventricular tachycardia) Acute Elevated troponin Acute Chest pain Acute
[2016-10-26] MEDS ORDERED: ATROPINE SULFATE 1 MG/10 ML SYR ONE (17:24)
--- NOTE | 2016-10-26 17:29 | CPEKG ---
Heart Rate: 89 RR Interval: 674 P-R Interval: 196 QRSD Interval: 98 QT Interval: 412 QTC Interval: 502 P [place]: 53 QRS [place]: 65 T Wave [place]: 18 EKG Severity - BORDERLINE ECG - EKG Impression: SINUS RHYTHM EKG Impression: BORDERLINE PROLONGED QT INTERVAL Electronically Signed By: Corby Chawla 26-Oct-2016 21:20:20
[2016-10-26 18:45] LABS: ANION GAP 11 mEq/L (8-16); CALCIUM 9.6 mg/dL (8.5-10.4); CARBON DIOXIDE 23 mEq/l (22-31); CHLORIDE 104 mEq/L (97-110); CREATININE 0.8 mg/dL (0.6-1.0); GLOMERULAR FILTRATION RATE > 60; GLUCOSE 166 mg/dL (70-100); MAGNESIUM 1.7 mg/dL (1.6-2.3); POTASSIUM 3.7 mEq/L (3.5-5.2); SODIUM 138 mEq/L (134-144)
--- NOTE | 2016-10-26 19:56 | POSTANESTH ---
Post Anesthetic Evaluation Cardiovascular Status: Normal, Stable Respiratory Status: Tx Decrease in SpO2 Level of Consciousness/Mental Status: Can Participate in Eval Pain Control: Adequate, Prn Tx Ordered Nausea/Vomiting Control: Adequate, Prn Tx Ordered Complications Possibly Related to Anesthesia: None Noted
[2016-10-26] MEDS: PREGABALIN 100 MG CAP PO SCH (20:27)
[2016-10-26] MEDS ORDERED: NON-FORMULARY NEW DRUG (Pregabalin [Lyrica] 200 MG) PO SCH (21:00)
[2016-10-26] MEDS ORDERED: NON-FORMULARY NEW DRUG (Ranitidine Hcl [Ranitidine Hcl] 150 MG) PO SCH (21:00)
[2016-10-26] MEDS ORDERED: ATENOLOL 50 MG TAB PO SCH (21:00)
[2016-10-26] MEDS ORDERED: DULoxetine 60 MG CAP PO SCH (21:00)
[2016-10-26] MEDS ORDERED: FAMOTIDINE 20 MG TAB PO SCH (21:00)
[2016-10-27 05:32] LABS: % IMMATURE GRANULYOCYTES 0.5 % (0.0-1.1); ABSOLUTE IMMATURE GRANULOCYTES 0.06 10^3/uL (0.00-0.10); ADD DIFF? NO; ADD MORPH? NO; ADD SCAN? NO; ATYPICAL LYMPHOCYTE FLAG 0 (0-99); FRAGMENT RBC FLAG 0 (0-99); HEMATOCRIT 46.5 % (38.0-47.0); HEMOGLOBIN 15.2 g/dL (12.6-16.3); LEFT SHIFT FLG 0 (0-99); LIPEMIA HEMOLYSIS FLAG 80 (0-99); MEAN CELL HEMOGLOBIN 28.3 pg (27.9-34.1); MEAN CELL HEMOGLOBIN CONCENTR. 32.7 g/dL (32.4-36.7); MEAN CELL VOLUME 86.6 fL (81.5-99.8); MEAN PLATELET VOLUME 10.9 fL (8.7-11.7); PLATELET CLUMPS FLAG 0 (0-99); PLATELET COUNT 300 10^3/uL (150-400); RED BLOOD CELL COUNT 5.37 10^6/uL (4.18-5.33); RED CELL DISTRIBUTION WIDTH 13.9 % (11.5-15.2)
[2016-10-27 05:38] LABS: INR 1.02 (0.83-1.16); PROTIME(PATIENT) 13.3 SEC (12.0-15.0)
[2016-10-27 05:40] LABS: ANION GAP 15 mEq/L (8-16); CALCIUM 10.5 mg/dL (8.5-10.4); CARBON DIOXIDE 24 mEq/l (22-31); CHLORIDE 102 mEq/L (97-110); CREATININE 0.8 mg/dL (0.6-1.0); GLOMERULAR FILTRATION RATE > 60; GLUCOSE 106 mg/dL (70-100); SODIUM 141 mEq/L (134-144)
[2016-10-27 05:52] LABS: CREATINE KINASE-MB FRACTION 2.77 ng/mL (0.00-3.19); TROPONIN I 0.624 ng/mL (0.000-0.034)
[2016-10-27] MEDS: PREGABALIN 100 MG CAP PO SCH (08:33)
[2016-10-27 08:34] VITALS: PULSE 63
--- NOTE | 2016-10-27 08:58 | CPEKG ---
Heart Rate: 63 RR Interval: 952 P-R Interval: 196 QRSD Interval: 94 QT Interval: 476 QTC Interval: 488 P [place]: 42 QRS [place]: 62 T Wave [place]: 38 EKG Severity - BORDERLINE ECG - EKG Impression: SINUS RHYTHM EKG Impression: BORDERLINE PROLONGED QT INTERVAL Electronically Signed By: Corby Chawla 27-Oct-2016 10:59:34
[2016-10-27] MEDS ORDERED: ATENOLOL 50 MG TAB PO SCH (09:00)
[2016-10-27] MEDS ORDERED: ENALAPRIL MALEATE 5 MG TAB PO SCH (09:00)
[2016-10-27] MEDS ORDERED: NON-FORMULARY NEW DRUG (Esomeprazole Magnesium [Nexium 24hr] 20 MG) PO SCH (09:00)
[2016-10-27] MEDS ORDERED: PANTOPRAZOLE SODIUM 40 MG TAB PO SCH (09:00)
--- NOTE | 2016-10-27 11:52 | ECHO ---
[id number] + + [id number] : : [place] [address] : : [phone] + + Adult Echocardiographic Report + -------+ :Name: JUAN BENITO LStudy Date: 10/27/2016 09:45 AM BP: 120/82 mmH g : : Hospital Admission Number: [id number] Locati on: 220: :: 1960 Gender: Female Height: 65 in : :Age: 55 yrs Race: WH Weight: 178 lb : :Reason For Study: F/U EP : : BSA: 1.9 meter s2 : :History: F/U EP study for SVT : + -------+ MMode/2D Measurements \T\ Calculations IVSd: 0.91 cm RVDd: 3.0 cm FS: 39.8 % LA dimension: LVPWd: 0.83 cm LVIDd: 4.1 cm EDV(Teich): 3.6 cm LVIDs: 2.5 cm 75.8 ml ESV(Teich): 22.1 ml EF(Teich): 70.8 % LVLd ap4: 8.8 cm SV(MOD-sp4): EDV(MOD-sp4): 51.0 ml 89.0 ml LVLs ap4: 7.0 cm ESV(MOD-sp4): 38.0 ml EF(MOD-sp4): 57.3 % Normal Measurement Values: + + :LVIDd (3.5-5.7cm) IVSd (0.6-1.1cm) LVPWd (0.6-1.1cm) Aortic Root (2.0-3.7cm)Left Atrium (1.5-4.0cm): :LV Vol(d) (76-115ml) LV Vol(s) (29-48ml) Ejec Fraction (50-65%)PV Rubio (0.6- 1.2m/s) TV Rubio (0.4-1.0m/s) : :MV E Rubio (0.8-1.0m/s)MV A Rubio (0.3-1.0m/s)LVOT Rubio (0.7-1.2m/s) Asc Ao Rubio ( 0.9-1.8m/s) : + + Doppler Measurements \T\ Calculations MV E max rubio: Ao V2 max: LV V1 max: PA V2 max: 83.9 cm/sec 150.8 cm/sec 118.0 cm/sec 95.3 cm/sec MV A max rubio: Ao max PG: LV V1 max PG: PA max P.0 cm/sec 9.1 mmHg 5.6 mmHg 3.6 mmHg MV E/A: 1.0 MV dec time: 0.27 sec TR max rubio: 237.7 cm/sec TR max P.6 mmHg RAP systole: 10.0 mmHg RVSP(TR): 32.6 mmHg Left Ventricle The left ventricle is normal in size and function. There is normal left ventricular wall thickness. Ejection Fraction = 65%. The left ventricular ejection fraction is calculated at 70.8 %. No regional wall motion abnormalities noted. Right Ventricle The right ventricle is normal in size and function. Atria The left atrial size is normal. Right atrial size is normal. There was no clot seen in the IVC. Mitral Valve The mitral valve is normal in structure and function. There is trace mitral regurgitation. Tricuspid Valve The tricuspid valve is normal in structure and function. There is no tricuspid stenosis. There is mild tricuspid regurgitation. Right ventricular systolic pressure is 33mmHg. Aortic Valve The aortic valve is trileaflet. There is no aortic stenosis. There is no aortic insufficiency. Pulmonic Valve The pulmonic valve is not well visualized. Great Vessels The aortic root is normal size. Pericardium/Pleural There is no pericardial effusion. Conclusion A two-dimensional transthoracic echocardiogram with M-mode and Doppler was performed. (1) Left ventricular systolic ejection fraction was normal (65%) - normal wall motion (2) No left ventricular hypertrophy (3) No diastolic dysfunction (4) Normal right ventricular size and function (5) Normal atrial dimensions - right atrial was upper limit of normal (6) Grossly normal mitral valve (7) Trileaflet aortic valve without sclerosis or insufficiency (8) Mild tricuspid regurgitation - RVSP was normal (9) Poor visualization of the pulmonic (10) No pericardial effusion (11) No changes in comparison to prior Final Reading Physician: Ryan Platt signed on 10/27/2016 11:51 AM Ordering Physician: Corby Chawla Performed By: Lourdes Archer
[2016-10-27 12:26] VITALS: BP 113/73; RESP 18; TEMP 98.2; O2SAT 95
--- NOTE | 2016-10-27 17:57 | ASDISCHSUM ---
Discharge Information Plan Status:Home with No Needs Medically Cleared to Leave: Discharge Date:10/27/2016 01:17 PM CM D/C Disposition:Home, Routine, Self-Care ADT D/C Disposition:Home, Routine, Self-Care Projected Discharge Date:10/27/2016 01:17 PM Transportation at D/C: Discharge Delay Reason: Follow-Up Date:10/27/2016 01:17 PM Discharge Slot: Final Diagnosis: Placement Information Patient Contact Information Contact Name:ELISEO Relationship:Father Address: Work Phone: City: [facility] Phone: State/Zip Code: Email: Financial Information Financial Class: Primary Plan Desc:MEDICARE OUTPATIENT Primary Plan Number:[id number] Secondary Plan Desc:MEDICAID HE[employer] [place] OP Secondary Plan Number:[id number] Assessment Information Intervention Information Intervention Type:*SCHULER-Signed Date of Service:10/27/2016 10:48 AM Patient Type:Observation Staff Member:Lizzy Leyva Hours: Discipline: Severity: Comment:
--- NOTE | 2016-10-27 23:18 | GDS ---
[f rep st] DISCHARGE SUMMARY DISCHARGE DIAGNOSES: 1. Supraventricular tachycardia status post AVNRT ablation. 2. Inappropriate sinus tachycardia. 3. Hypertension. 4. Fibromyalgia. 5. Depression. 6. Posttraumatic stress disorder. BRIEF HISTORY: The patient is a 55-year-old woman with a history of inappropriate sinus tachycardia, as well as SVT, for which she had presented to the ER with rates up to 194 beats per minute. This SVT was sensitive to adenosine. HOSPITAL COURSE: Patient underwent successful ablation of a typical AVNRT (fast /slow) by Dr. Chawla without any complications. She remained stable overnight without bleeding at her groin sites. She denies any chest pain or new shortness of breath. She did report a localized area of tingling in her left ankle to the nurse this morning. No other pain or swelling. TESTING DONE: Echocardiogram demonstrated normal LV EF of 65%. EKG demonstrates sinus rhythm without ST-T wave changes. LABORATORY DATA: WBC is 12.88, hemoglobin 15.2, hematocrit 46.5, platelets 300 , PT 13.3, INR is 1.22, sodium is 141, potassium 4.0, chloride 102, bicarb 24, BUN 16, creatinine is 0.8. Glucose 106, CK 64, CK-MB 2.77. Troponin is 0.624. This is elevated and to be expected post ablation. PHYSICAL EXAMINATION: VITAL SIGNS: Blood pressure 140/86, pulse is 60, respirations 16, temperature afebrile at 36.5, O2 saturation 97% on room air. GENERAL: She is alert and oriented , in no distress and sitting up at the side of her bed. CARDIAC: Regular rate and rhythm without murmur, rub, or gallop. LUNGS: Clear to auscultation. ABDOMEN: Soft and nontender. BACK: No tenderness. EXTREMITIES: Warm, no discoloration, no edema, bilateral +2 pedal pulses. : Groin sites are without bleeding, no ecchymosis. DISCHARGE INSTRUCTIONS: Reviewed post ablation activity restrictions verbally with the patient, as well as written instructions at the time of discharge were given. She does refuse to take aspirin 81 mg, as she feels this has a poor affect on her fibromyalgia. She is also going to talk to Dr. Armendariz about this. She does understand that it is recommended to help decrease the risk of DVT post ablation. She understands to get up and walk if she is sitting for more than 45 minutes for the next 6 weeks. DISCHARGE MEDICATIONS: Please see discharge medication reconciliation. She will continue her home medications. FOLLOWUP: She has a followup with Dr. Chawla on 11/24 at 2:30. /[id number]/MODL MTDD
== END 2016-10-27 13:17 | disposition home or self-care (01) ==
LOC: FSGY 11:08 → F2W 17:08
PROVIDERS: ADMIT Internal Medicine Cardiovascular Disease; ATTEND Internal Medicine Cardiovascular Disease
DX: I47.1 Supraventricular tachycardia (principal); I10 Essential (primary) hypertension; M79.7 Fibromyalgia; F32.9 Major depressive disorder, single episode, unspecified; F43.10 Post-traumatic stress disorder, unspecified
CPT/HCPCS: 93005; 93306; 93613; 93621; 93623; 93653; C1730; C1731; C1732; C1733; J1644; J2704; J3010; J0461

== ENCOUNTER 2016-10-30 12:30 | Emergency (ER) | payer OTHER, MEDICAID ==
--- NOTE | 2016-10-30 12:40 | CPEKG ---
Heart Rate: 59 RR Interval: 1017 P-R Interval: 204 QRSD Interval: 88 QT Interval: 444 QTC Interval: 440 P [place]: 23 QRS [place]: 28 T Wave [place]: 19 EKG Severity - NORMAL ECG - EKG Impression: SINUS RHYTHM Electronically Signed By: Shant Atkins 30-Oct-2016 13:12:02
[2016-10-30] MEDS ORDERED: NS 1,000 ML IV ONE (12:52)
--- NOTE | 2016-10-30 13:11 | EDPHY ---
H & P Stated Complaint: cp ,nausea,lightheaded,left groin bruising and rash Time Seen by Provider: 10/30/16 12:53 HPI/ROS: CHIEF COMPLAINT: bruising and palpitations HISTORY OF PRESENT ILLNESS: The patient is a 55-year-old female with a history of SVT status post ablation on Tuesday, hypertension, fibromyalgia, depression and PTSD. She had a successful ablation on Tuesday with Dr. Chawla. She became concerned this morning when she had some palpitations and nausea. She also complained of some bruising to her left groin. She called an ambulance who found normal rhythm and vital signs. They gave her aspirin Zofran. She states that she continues to have frequent palpitations similar to when she had SVT. She does not have any arrhythmias on the monitor during these episodes. She denies any other cardiac or cardiovascular history. She was catheterized in both groins and the left slightly more bruised than the right. REVIEW OF SYSTEMS: Constitutional: denies: chills, fever, recent illness, recent injury EENTM: denies: blurred vision, double vision, nose congestion Respiratory: denies: cough, shortness of breath Cardiac: See HPI Gastrointestinal/Abdominal: denies: abdominal pain, diarrhea, nausea, vomiting, blood streaked stools Genitourinary: denies: dysuria, frequency, hematuria, pain Musculoskeletal: denies: joint pain, muscle pain Skin: denies: lesions, rash, jaundice, bruising Neurological: denies: headache, numbness, paresthesia, tingling, dizziness, weakness Hematologic/Lymphatic: denies: blood clots, easy bleeding, easy bruising Immunologic/allergic: denies: HIV/AIDS, transplant EXAM: GENERAL: Well-appearing, well-nourished and in no acute distress. HEAD: Atraumatic, normocephalic. EYES: Pupils equal round and reactive to light, extraocular movements intact, sclera anicteric, conjunctiva are normal. ENT: TMs normal, nares patent, oropharynx clear without exudates. Moist mucous membranes. NECK: Normal range of motion, supple without lymphadenopathy or JVD. LUNGS: Breath sounds clear to auscultation bilaterally and equal. No wheezes rales or rhonchi. HEART: Regular rate and rhythm without murmurs, rubs or gallops. ABDOMEN: Soft, nontender, normoactive bowel sounds. No guarding, no rebound. No masses appreciated. BACK: No CVA tenderness, no spinal tenderness, step-offs or deformities EXTREMITIES: Minimal bruising to left groin. No palpable aneurysm. Right groin normal in appearance. Normal range of motion, no pitting or edema. No clubbing or cyanosis. NEUROLOGICAL: Cranial nerves II through XII grossly intact. Normal speech, normal gait. 5/5 strength, normal movement in all extremities, normal sensation PSYCH: Mildly anxious, normal affect. SKIN: Minor bruising to left groin, no thrill, no hematoma or abscess or palpable pseudoaneurysm. Source: Patient, EMS, Old records Exam Limitations: No limitations - Personal History Current Tetanus/Diphtheria Vaccine: Yes Current Tetanus Diphtheria and Acellular Pertussis (TDAP): Yes Tetanus Vaccine Date: 2016 - Medical/Surgical History Hx Asthma: No Hx Chronic Respiratory Disease: No Hx Diabetes: No Hx Cardiac Disease: Yes Hx Renal Disease: No Hx Cirrhosis: No Hx Alcoholism: No Hx HIV/AIDS: No Hx Splenectomy or Spleen Trauma: No Other PMH: SVT, Fibromyalgia, HTN, TONSILECTOMY, dissacossiative identity disorder.hiatial hernia, depression, anxiety, GERD, Arthritis. - Family History Significant Family History: No pertinent family hx - Social History Smoking Status: Never smoked Alcohol Use: Sober Drug Use: None Constitutional: Initial Vital Signs Temperature (C) 37.1 C 10/30/16 12:43 Heart Rate 57 L 10/30/16 12:43 Respiratory Rate 16 10/30/16 12:43 Blood Pressure 120/71 10/30/16 12:43 O2 Sat (%) 94 10/30/16 12:43 O2 Delivery Mode Room Air O2 (L/minute) 2 Allergies/Adverse Reactions: hydrocodone [Hydrocodone] Allergy (Mild, Verified 10/04/16 13:33) heart races Penicillins Allergy (Mild, Verified 10/04/16 13:33) Rash clindamycin Allergy (Unknown, Verified 10/04/16 13:33) fluconazole Allergy (Unknown, Verified 10/04/16 13:33) metoclopramide Allergy (Unknown, Verified 10/04/16 13:33) lorazepam [From Ativan] Allergy (Verified 10/04/16 13:33) Home Medications: Medication Instructions Recorded DULoxetine [Cymbalta 60 MG (*)] 60 mg PO HS 05/15/16 Pregabalin [LYRICA] 200 mg PO BID 07/26/16 Ranitidine HCl 150 mg PO HS 09/02/16 Atenolol [Tenormin 50 mg (*)] 50 mg PO DAILY 10/26/16 Atenolol [Tenormin 50 mg (*)] 75 mg PO HS 10/26/16 Enalapril Maleate [Vasotec 5 MG 5 mg PO DAILY 10/26/16 (*)] Esomeprazole Magnesium [Nexium 20 mg PO DAILY 10/26/16 24Hr] Estradiol [Estrace Vaginal (*)] 1 ciarra VG DAILY PRN 10/26/16 Herbals/Supplements -Info Only 1 ea PO DAILY 10/26/16 SUMAtriptan [Imitrex 50 MG (*)] 50 mg PO DAILY PRN 10/26/16 Medical Decision Making - Diagnostics EKG Interpretation: An EKG obtained and was read and documented in trace view. Please see trace view for full reading and report. Sinus rhythm, no acute ischemic changes ED Course/Re-evaluation: We had a long discussion about possible tests. I did offer to perform troponin and other cardiac testing. The patient declines this. The patient's troponin level certainly be elevated after a procedure on Tuesday. She does have a level drawn on Tuesday that we could compare to. She declines this. Her EKG shows sinus rhythm. She would like us to simply monitor her for awhile. She has received IV fluids and Zofran and aspirin thus far. I agree to this plan and encouraged her to let us know if she has any new or changing symptoms. 2:15 p.m. the patient is feeling completely well. She continues to refuse further testing. I have reviewed the monitor strips nerve been no arrhythmias. She denies any recent stimulant use. She does have some feelings of anxiety and stress but declines anxiolytics. We will continue to observe. 3:00 p.m. the patient is feeling completely better. She states that her "heart is calm" and she would like to go home. She is eating. We discussed indications for returning. Differential Diagnosis: Partial list of the Differential diagnosis considered include but were not limited to; arrhythmia, anxiety, acute coronary disease and although unlikely based on the history and physical exam, I also considered PE, pneumonia, pneumothorax, aneurysm, dissection, myocardial perforation. I discussed these differential diagnoses and the plan with the patient as well as the usual and expected course. The patient understands that the diagnosis is provisional and that in medicine we are not always correct and that further workup is often warranted. Usual and customary warnings were given. All of the patient's questions were answered. The patient was instructed to return to the emergency department should the symptoms at all worsen or return, otherwise to followup with the physician as we discussed. - Data Points Medications Given: Discontinued Medications Sodium Chloride (Ns) 1,000 mls @ 0 mls/hr IV ONCE ONE; Wide Open PRN Reason: Protocol Stop: 10/30/16 12:53 Last Admin: 10/30/16 13:07 Dose: 1,000 mls Departure - Departure Disposition: Home, Routine, Self-Care Clinical Impression: Palpitations Condition: Fair Instructions: Palpitations (ED) Referrals: Victoria Armendariz MD [Primary Care Provider] - As per Instructions Corby Chawla MD [Medical Doctor] - 5-7 days, call for appt.
[2016-10-30 14:39] VITALS: BP 122/81; PULSE 61; RESP 15; O2SAT 95
[2016-10-30 15:27] VITALS: TEMP 97.9
== END 2016-10-30 15:31 | disposition home or self-care (01) ==
LOC: EDUNIT#
PROC: 3E0337Z Introduction of Electrolytic and Water Balance Substance into Peripheral Vein, Percutaneous Approach (ICD-10-PCS; principal; 2016-10-30)
DX: R00.2 Palpitations (principal); I10 Essential (primary) hypertension; E86.9 Volume depletion, unspecified

== ENCOUNTER 2016-11-02 10:47 | Emergency (ER) | payer OTHER, MEDICAID ==
[2016-11-02 11:02] VITALS: RESP 18
--- NOTE | 2016-11-02 11:14 | CPEKG ---
Heart Rate: 58 RR Interval: 1034 P-R Interval: 200 QRSD Interval: 96 QT Interval: 444 QTC Interval: 437 P [place]: 24 QRS [place]: 47 T Wave [place]: 23 EKG Severity - NORMAL ECG - EKG Impression: SINUS RHYTHM Electronically Signed By: Deniz Gilman 02-Nov-2016 12:25:19
[2016-11-02] MEDS ORDERED: ONDANSETRON 4 MG/2 ML VIAL IVP ONE (12:00)
[2016-11-02 12:19] LABS: % IMMATURE GRANULYOCYTES 0.4 % (0.0-1.1); ABSOLUTE IMMATURE GRANULOCYTES 0.03 10^3/uL (0.00-0.10); ADD DIFF? NO; ADD MORPH? NO; ADD SCAN? NO; ATYPICAL LYMPHOCYTE FLAG 0 (0-99); FRAGMENT RBC FLAG 0 (0-99); HEMATOCRIT 44.8 % (38.0-47.0); HEMOGLOBIN 14.6 g/dL (12.6-16.3); LEFT SHIFT FLG 0 (0-99); LIPEMIA HEMOLYSIS FLAG 80 (0-99); MEAN CELL HEMOGLOBIN CONCENTR. 32.6 g/dL (32.4-36.7); MEAN PLATELET VOLUME 11.2 fL (8.7-11.7); PLATELET CLUMPS FLAG 10 (0-99); PLATELET COUNT 287 10^3/uL (150-400); RED BLOOD CELL COUNT 5.21 10^6/uL (4.18-5.33); RED CELL DISTRIBUTION WIDTH 13.9 % (11.5-15.2)
[2016-11-02 12:21] LABS: ALANINE AMINOTRANSFERASE 45 IU/L (9-52); ALBUMIN 4.3 g/dL (3.5-5.0); ALKALINE PHOSPHATASE 92 IU/L (38-126); ANION GAP 11 mEq/L (8-16); ASPARTATE AMINOTRANSFERASE 35 IU/L (14-46); BILIRUBIN,TOTAL 0.6 mg/dL (0.1-1.4); CALCIUM 9.5 mg/dL (8.5-10.4); CARBON DIOXIDE 26 mEq/l (22-31); CHLORIDE 104 mEq/L (97-110); CREATININE 0.8 mg/dL (0.6-1.0); GLOMERULAR FILTRATION RATE > 60; GLUCOSE 80 mg/dL (70-100); POTASSIUM 4.5 mEq/L (3.5-5.2); SODIUM 141 mEq/L (134-144); TOTAL PROTEIN 7.6 g/dL (6.3-8.2)
--- NOTE | 2016-11-02 12:24 | EDPHY ---
H & P Time Seen by Provider: 11/02/16 12:23 HPI/ROS: CHIEF COMPLAINT: Abdominal pain and belching HISTORY OF PRESENT ILLNESS: This 55-year-old woman presents with intermittent epigastric pain and belching for the past 24 hours. A little bit yesterday but mostly this morning. She describes epigastric discomfort with a lot of gas and belching which is not in her chest or radiating to her chest. Not associated with his vomiting or diarrhea but she does have nausea. Symptoms are moderate and worse when she tries to eat or drink. Patient had an ablation last week and describes continued intermittent self- limited palpitations with dizziness and Tuesday and then again on Tuesday morning at 8:30 a.m. which she says lasted 3 or 4 hours. Patient also tells me she has multiple personalities and that 1 of them, her 4- year-old girl, wants to "cut her heart out" and has worsening suicidal ideation over the last 48 hours. However the patient tells me she is managing this and parenting this personality and does not think she will actually hurt herself. REVIEW OF SYSTEMS: Eye: no change in vision ENT: no sore throat Cardiac: No syncope, palpitations as above. No chest pain. Pulmonary: no cough or SOB Abdomen: HPI Musculoskeletal: no back pain Skin: no rash Neuro: no headache Constitutional: no fever : no urinary symptoms A comprehensive 10 point review of systems is otherwise negative aside from elements mentioned in the history of present illness. PAST MEDICAL HISTORY: Includes SVT after AV werner ablation 1 week ago. Hypertension, fibromyalgia, depression, PTSD Social history: Nonsmoker. General Appearance: Alert and conversant, cooperative. Eyes: No scleral icterus. ENT, Mouth: Normal mucous membranes. Respiratory: Normal respiratory effort, breath sounds equal, lungs are clear to auscultation. Cardiovascular: Regular rate and rhythm. Gastrointestinal: Abdomen is soft and non tender. No Sesay sign or rebound or guarding. Neurological: Alert and oriented x3. Normally conversant. Face symmetric, normal movement and sensation in all extremities. Skin: Warm and dry, no rashes. Musculoskeletal: No peripheral edema and no joint swelling. No calf tenderness. Psychiatric: Flat affect. Covers her eyes with her hand. Emergency Department course/MDM: EKG and liver function tests are normal. I think that acute coronary syndrome or pulmonary embolism would be low likelihood. Zofran and GI cocktail. 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 Request by Dr. Chawla for D-dimer screening for pulmonary embolism. The results discussed at 3:29 p.m.. Negative CTA per Karley, performed for D- dimer greater than 0.5. At this time we discussed the possibility of mental health evaluation. However , the patient was able to speak with her therapist by phone during her ED visit for about half an hour and feels comfortable going home, she is currently not suicidal. Declines mental health evaluation. She does not appear to be acutely be danger to herself. Smoking Status: Never smoked Constitutional: Initial Vital Signs Temperature (C) 36.9 C 11/02/16 10:52 Heart Rate 62 11/02/16 10:52 Respiratory Rate 18 11/02/16 10:52 Blood Pressure 120/88 H 11/02/16 10:52 O2 Sat (%) 94 11/02/16 10:52 O2 Delivery Mode Room Air Allergies/Adverse Reactions: hydrocodone [Hydrocodone] Allergy (Mild, Verified 10/04/16 13:33) heart races Penicillins Allergy (Mild, Verified 10/04/16 13:33) Rash clindamycin Allergy (Unknown, Verified 10/04/16 13:33) fluconazole Allergy (Unknown, Verified 10/04/16 13:33) metoclopramide Allergy (Unknown, Verified 10/04/16 13:33) lorazepam [From Ativan] Allergy (Verified 10/04/16 13:33) Home Medications: Medication Instructions Recorded DULoxetine [Cymbalta 60 MG (*)] 60 mg PO HS 05/15/16 Pregabalin [LYRICA] 200 mg PO BID 07/26/16 Atenolol [Tenormin 50 mg (*)] 50 mg PO DAILY 10/26/16 Atenolol [Tenormin 50 mg (*)] 75 mg PO HS 10/26/16 Enalapril Maleate [Vasotec 5 MG 5 mg PO DAILY 10/26/16 (*)] Esomeprazole Magnesium [Nexium 20 mg PO DAILY 10/26/16 24Hr] Estradiol [Estrace Vaginal (*)] 1 ciarra VG DAILY PRN 10/26/16 Herbals/Supplements -Info Only 1 ea PO DAILY 10/26/16 Medical Decision Making - Diagnostics EKG Interpretation: 12-lead EKG interpreted by me; official reading is in trace master. My interpretation is sinus rhythm rate 58 no acute ischemic changes. Imaging Results: Imaging Impressions Chest X-Ray 11/02/16 12:01 Impression: Stable negative chest. Chest/Thorax CTA 11/02/16 14:12 Impression: 1. No evidence for pulmonary embolus using CT protocol. 2. No significant abnormality within the chest. Findings discussed with Deniz Gilman M.D. at 15:04 hour, 11/02/2016. Differential Diagnosis: Differential considered including but not limited to acute coronary syndrome, cardiac perforation, pericardial tamponade, pulmonary embolism, pancreatitis, gallbladder disease. - Data Points Laboratory Results: Laboratory Results 11/02/16 Unknown 11/02/16 11:40 11/02/16 11/02/16 11/02/16 Unknown 12:49 12:05 WBC 7.96 10^3/uL 10^3/uL (3.80-9.50) RBC 5.21 10^6/uL 10^6/uL (4.18-5.33) Hgb 14.6 g/dL g/dL (12.6-16.3) Hct 44.8 % % (38.0-47.0) MCV 86.0 fL fL (81.5-99.8) MCH 28.0 pg pg (27.9-34.1) MCHC 32.6 g/dL g/dL (32.4-36.7) RDW 13.9 % % (11.5-15.2) Plt Count 287 10^3/uL 10^3/uL (150-400) MPV 11.2 fL fL (8.7-11.7) Neut % (Auto) 64.9 % % (39.3-74.2) Lymph % (Auto) 23.4 % % (15.0-45.0) Norton % (Auto) 8.4 % % (4.5-13.0) Eos % (Auto) 2.3 % % (0.6-7.6) Baso % (Auto) 0.6 % % (0.3-1.7) Nucleat RBC Rel Count 0.0 % % (0.0-0.2) Absolute Neuts (auto) 5.17 10^3/uL 10^3/uL (1.70-6.50) Absolute Lymphs (auto) 1.86 10^3/uL 10^3/uL (1.00-3.00) Absolute Monos (auto) 0.67 10^3/uL 10^3/uL (0.30-0.80) Absolute Eos (auto) 0.18 10^3/uL 10^3/uL (0.03-0.40) Absolute Basos (auto) 0.05 10^3/uL 10^3/uL (0.02-0.10) Absolute Nucleated RBC 0.00 10^3/uL 10^3/uL (0-0.01) Immature Gran % 0.4 % % (0.0-1.1) Immature Gran # 0.03 10^3/uL 10^3/uL (0.00-0.10) D-Dimer 0.57 ug/mLFEU H ug/mLFEU (0.00-0.50) Sodium Potassium Chloride Carbon Dioxide Anion Gap BUN Creatinine Estimated GFR Glucose Calcium Total Bilirubin AST ALT Alkaline Phosphatase CK-MB (CK-2) Fraction Troponin I Total Protein Albumin Lipase 296 IU/L IU/L (23-300) 11/02/16 11:40 WBC RBC Hgb Hct MCV MCH MCHC RDW Plt Count MPV Neut % (Auto) Lymph % (Auto) Norton % (Auto) Eos % (Auto) Baso % (Auto) Nucleat RBC Rel Count Absolute Neuts (auto) Absolute Lymphs (auto) Absolute Monos (auto) Absolute Eos (auto) Absolute Basos (auto) Absolute Nucleated RBC Immature Gran % Immature Gran # D-Dimer Sodium 141 mEq/L mEq/L (134-144) Potassium 4.5 mEq/L mEq/L (3.5-5.2) Chloride 104 mEq/L mEq/L (97-110) Carbon Dioxide 26 mEq/l mEq/l (22-31) Anion Gap 11 mEq/L mEq/L (8-16) BUN 24 mg/dL H mg/dL (7-23) Creatinine 0.8 mg/dL mg/dL (0.6-1.0) Estimated GFR > 60 Glucose 80 mg/dL mg/dL (70-100) Calcium 9.5 mg/dL mg/dL (8.5-10.4) Total Bilirubin 0.6 mg/dL mg/dL (0.1-1.4) AST 35 IU/L IU/L (14-46) ALT 45 IU/L IU/L (9-52) Alkaline Phosphatase 92 IU/L IU/L (38-126) CK-MB (CK-2) Fraction 0.90 ng/mL ng/mL (0.00-3.19) Troponin I < 0.012 ng/mL ng/mL (0.000-0.034) Total Protein 7.6 g/dL g/dL (6.3-8.2) Albumin 4.3 g/dL g/dL (3.5-5.0) Lipase Medications Given: Discontinued Medications Al Hydroxide/Mg Hydroxide (Maalox Susp) 30 ml PO ONCE ONE Stop: 11/02/16 12:42 Last Admin: 11/02/16 13:07 Dose: 30 ml Hyoscyamine Sulfate (Levsin, Hyomax-Sl) 0.25 mg PO ONCE ONE Stop: 11/02/16 12:42 Last Admin: 11/02/16 13:07 Dose: 0.25 mg Lidocaine (Lidocaine 2% Viscous) 15 ml PO ONCE ONE Stop: 11/02/16 12:42 Last Admin: 11/02/16 13:08 Dose: 15 ml Ondansetron HCl (Zofran) 4 mg IVP EDNOW ONE Stop: 11/02/16 12:01 Last Admin: 11/02/16 12:13 Dose: 4 mg Departure - Departure Disposition: Home, Routine, Self-Care Clinical Impression: Epigastric abdominal pain, Palpitations Condition: Good Instructions: Palpitations (ED), Abdominal Pain (ED) Referrals: Victoria Armendariz MD [Primary Care Provider] - As per Instructions Corby Chawla MD [Medical Doctor] - As per Instructions
[2016-11-02] MEDS ORDERED: LIDOCAINE 2% VISCOUS 15 ML UDCUP PO ONE (12:41)
[2016-11-02] MEDS ORDERED: HYOSCYAMINE SULFATE 0.125 MG TAB PO ONE (12:41)
[2016-11-02] MEDS ORDERED: MAG HYDROX/AL HYDROX/SIMETH 30 ML UDCUP PO ONE (12:41)
[2016-11-02 12:49] LABS: TROPONIN I < 0.012 ng/mL (0.000-0.034)
[2016-11-02] MEDS ORDERED: IOPAMIDOL (ISOVUE 370) 100 ML BTL IV ONE (14:26)
[2016-11-02 15:38] VITALS: BP 123/79; PULSE 51; TEMP 97.9; O2SAT 91
== END 2016-11-02 15:45 | disposition home or self-care (01) ==
LOC: EDUNIT#
DX: R10.13 Epigastric pain (principal); R00.2 Palpitations; I10 Essential (primary) hypertension
CPT/HCPCS: 71020; 71275; 93005; 96374; 99285; J2405; Q9967

== ENCOUNTER 2016-11-13 16:34 | Inpatient (IN) | payer OTHER, MEDICAID ==
--- NOTE | 2016-11-13 16:39 | EDPHY ---
H & P HPI/ROS: CHIEF COMPLAINT: Word finding difficulty HISTORY OF PRESENT ILLNESS: The patient is a 56-year-old female, brought in by EMS, presenting with word finding difficulty. The patient was at the grocery store at 3:30 p.m., 2.5 hours ago. While she was checking out she felt confused and was unable to recall her pin number. She had to hold onto the cart to walk out of the store, but she was able to make it home. When she got home she felt like her symptoms worsened; she developed difficulty with word finding and felt dizzy. She spoke to an RN on the phone who recommended she come to the ED. The patient states her symptoms have improved since arriving. She states she has experienced similar episodes of this in the past and was hospitalized for this once. During that time she had a CT done that was negative. She was told her symptoms were likely due to her history of fibromyalgia which usually effects her upper extremities and causes lower extremity tingling. She denies headache, recent head trauma, change in vision, slurred speech, new numbness, and new weakness. The patient had a cardiac ablation procedure (SVT) performed 10/26/16. She states she is feeling better and the palpitations are not as frequent anymore. The patient did not have any palpitations today or chest pain prior to transient symptoms. She is not anticoagulated. REVIEW OF SYSTEMS: A ten point review of systems was performed and is negative with the exception of the items mentioned in the HPI. Past medical history: 1. SVT after AV werner ablation 2. Hypertension 3. PTSD 4. Depression 5. Fibromyalgia Past surgical history: Ablation 10/26/16. Family history: Noncontributory. Social history: Nonsmoker. General Appearance: Alert. Vital signs reviewed. Head: Normocephalic atraumatic. Eyes: Pupils equal and round, no conjunctival injection, no discharge. Anicteric. ENT, Mouth: Mucous membranes are moist, no oropharyngeal erythema or edema. Neck: No lymphadenopathy, supple. Respiratory: Lungs are clear to auscultation; no wheezes, rales, or rhonchi. Cardiovascular: Regular rate and rhythm; no murmur, rub, or gallop. Gastrointestinal: Abdomen is soft and nontender, no masses or organomegaly, bowel sounds normal. Skin: Warm and dry, no rashes on exposed skin, normal color. Back: Nontender to palpation over the thoracolumbar spine. No CVAT. Extremities: No lower extremity edema, no calf tenderness or swelling. Neurological: Alert and oriented. Moving all four extremities easily and equally. Cranial nerves II through XII are examined and are intact (visual acuity not tested). Strength is 5 over 5 bilaterally with testing of all major motor groups. Sensation is intact to light touch over all 4 extremities. Slight decrease to light touch on the lateral medial aspect to the left leg relative to the right. Deep tendon reflexes are 2+ in the biceps and knees bilaterally. Gait is normal. [id number] is performed accurately. Psychiatric: Normal affect. Source: Patient - Personal History Tetanus Vaccine Date: 2016 - Medical/Surgical History Hx Asthma: No Hx Chronic Respiratory Disease: No Hx Diabetes: No Hx Cardiac Disease: Yes Hx Renal Disease: No Hx Cirrhosis: No Hx Alcoholism: No Hx HIV/AIDS: No Hx Splenectomy or Spleen Trauma: No Other PMH: ablation for SVT, Fibromyalgia, HTN, TONSILECTOMY, dissacossiative identity disorder.hiatial hernia, depression, anxiety, GERD, Arthritis. - Social History Smoking Status: Never smoked Constitutional: Initial Vital Signs Temperature (C) 37.0 C 11/13/16 16:40 Heart Rate 57 L 11/13/16 16:40 Respiratory Rate 18 11/13/16 16:40 Blood Pressure 106/71 11/13/16 16:40 O2 Sat (%) 95 11/13/16 16:40 O2 Delivery Mode Room Air Allergies/Adverse Reactions: hydrocodone [Hydrocodone] Allergy (Mild, Verified 10/04/16 13:33) heart races Penicillins Allergy (Mild, Verified 10/04/16 13:33) Rash clindamycin Allergy (Unknown, Verified 10/04/16 13:33) fluconazole Allergy (Unknown, Verified 10/04/16 13:33) metoclopramide Allergy (Unknown, Verified 10/04/16 13:33) lorazepam [From Ativan] Allergy (Verified 10/04/16 13:33) Home Medications: Medication Instructions Recorded DULoxetine [Cymbalta 60 MG (*)] 60 mg PO HS 05/15/16 Pregabalin [LYRICA] 200 mg PO BID 07/26/16 Atenolol [Tenormin 50 mg (*)] 50 mg PO BID 10/26/16 Estradiol [Estrace Vaginal (*)] 1 ciarra VG DAILY PRN 10/26/16 Esomeprazole Mag Trihydrate 40 mg PO DAILY 11/13/16 [Nexium] Herbals/Supplements -Info Only 1 ea PO DAILY 11/13/16 Olopatadine HCl [Pataday] 1 drop OP DAILY 11/13/16 Aspirin [Aspirin 81mg (*)] 81 mg PO DAILY #30 tab.chew 11/15/16 Medical Decision Making - Diagnostics Imaging: Discussed imaging studies w/ can slider Radiologist ED Course/Re-evaluation: The patient is a 56-year-old female presenting with word finding difficulty and confusion. Plan for head CT. I ordered lab work including BMP and CBC. The patient has been evaluated here multiple times this year. I reviewed the patient's past medical records from her most previous visits 10/30/16 and 11/02/16. 5:05 p.m.: I spoke with Shola, the dye range operator that the patient spoke with at onset of her symptoms. He tells me he was struck by her difficulty with word finding and slurred speech. CT head is negative. The results were called to me by the radiologist. Please see imaging section for the full report. The patient's lab work is unremarkable. I discussed findings with the patient at 5:55 p.m.. The patient states she has tried to talk to talk to her physician about these symptoms occurring in the past. She has not been evaluated for this. There is nothing makes me think that this was seizure activity. TIA is a possibility, no evidence of stroke at this time as her symptoms are completely resolved. I am recommending TIA evaluation. Patient is very interested in proceeding with that evaluation. The patient was here 3 month ago with SVT. She had a Nuclear stress test and ECHO performed at that time. I spoke to the hospitalist team at 6:50 p.m.. The patient will be admitted to Dr. Carcamo for further observation. Differential Diagnosis: Considered a differential diagnosis that includes but is not limited to seizure , CVA (ischemic or hemorrhagic), TIA, anxiety or other process resulting in physical symptoms. - Data Points Laboratory Results: Laboratory Results 11/13/16 19:52 11/14/16 04:16 Medications Given: Discontinued Medications Acetaminophen (Tylenol) 650 mg PO Q4HRS PRN PRN Reason: Pain, Mild/Fever, Can Take PO Stop: 05/12/17 18:50 Last Admin: 11/15/16 00:03 Dose: 650 mg Aspirin (Aspirin) 81 mg PO DAILY JANIS Stop: 05/13/17 09:59 Last Admin: 11/15/16 09:22 Dose: 81 mg Atenolol (Tenormin) 50 mg PO BID JANIS Stop: 05/13/17 08:59 Last Admin: 11/15/16 09:21 Dose: 50 mg Duloxetine HCl (Cymbalta) 60 mg PO HS JANIS Stop: 05/13/17 20:59 Last Admin: 11/14/16 20:51 Dose: 60 mg Enoxaparin Sodium (Lovenox) 40 mg SC DAILY JANIS Stop: 05/13/17 08:59 Last Admin: 11/15/16 09:20 Dose: 40 mg Sodium Chloride (Ns) 1,000 mls @ 3,000 mls/hr IV ONCE ONE Stop: 11/13/16 19:10 Last Admin: 11/13/16 20:21 Dose: Not Given Olopatadine HCl (Patanol 0.1%) 1 drops OP DAILY JANIS Stop: 05/13/17 08:59 Last Admin: 11/14/16 10:25 Dose: Not Given Pantoprazole Sodium (Protonix) 40 mg PO DAILY [facility] Stop: 05/13/17 08:59 Last Admin: 11/15/16 09:21 Dose: 40 mg Pregabalin (Lyrica) 200 mg PO BID JANIS Stop: 05/13/17 08:59 Last Admin: 11/15/16 09:20 Dose: 200 mg Departure - Departure Disposition: [facility] Acute Clinical Impression: Dysarthria Condition: Good Report Scribed for: Belinda Pena Report Scribed by: Zahra Aquino Date of Report: 11/13/16 Time of Report: 17:05 Physician Review and Approval Statement: 11/13/16 16:39 Portions of this note were transcribed by the medical i d sales. I, Dr. Belinda Pena, personally performed the history, physical exam, and medical decision- making; and confirmed the accuracy of the information in the transcribed note.
[2016-11-13 17:12] LABS: ANION GAP 14 mEq/L (8-16); CALCIUM 9.6 mg/dL (8.5-10.4); CARBON DIOXIDE 25 mEq/l (22-31); CHLORIDE 103 mEq/L (97-110); CREATININE 0.9 mg/dL (0.6-1.0); GLOMERULAR FILTRATION RATE > 60; GLUCOSE 92 mg/dL (70-100); POTASSIUM 4.5 mEq/L (3.5-5.2); SODIUM 142 mEq/L (134-144)
--- NOTE | 2016-11-13 18:26 | CPEKG ---
Heart Rate: 55 RR Interval: 1091 P-R Interval: 212 QRSD Interval: 84 QT Interval: 456 QTC Interval: 437 P [place]: 20 QRS [place]: 41 T Wave [place]: 17 EKG Severity - ABNORMAL ECG - EKG Impression: SINUS RHYTHM EKG Impression: FIRST DEGREE AV BLOCK Electronically Signed By: Belinda Pena 13-Nov-2016 23:55:18
[2016-11-13] MEDS ORDERED: NS 1,000 ML IV ONE (18:51)
[2016-11-13] MEDS ORDERED: ONDANSETRON 4 MG/2 ML VIAL IVP PRN (18:51)
[2016-11-13] MEDS ORDERED: ONDANSETRON DISINTEGRATING 4 MG TAB PO PRN (18:51)
[2016-11-13 19:01] LABS: COLOR YELLOW; LEUKOCYTE ESTERASE,URINE TRACE (NEGATIVE); NITRITE,URINE NEGATIVE (NEGATIVE)
[2016-11-13 19:03] LABS: BACTERIA TRACE /hpf (NONE SEEN); MUCUS TRACE /lpf (NONE-1+)
--- NOTE | 2016-11-13 19:58 | GHP ---
[f rep st] HISTORY AND PHYSICAL DATE OF ADMISSION: 11/13/2016 CHIEF COMPLAINT: Word-finding difficulty and confusion. HISTORY OF PRESENT ILLNESS: A 56-year-old female, with a history of SVT, status post ablation 3 week s ago, as well as PTSD, depression, who presents with complaints of difficulty finding words this aft cinthya while she was at the grocery store. Reports feeling her normal self in the morning and arrivi ng to the grocery store. She was completing her shopping, having inability to find appropriate words and remember her credit card pass code. Patient said her symptoms lasted for several hours. She wa s on the phone with the response nurse from the emergency department, who confirmed she had some slur ring of her speech while on the line, as well as word-finding difficulty, and what appeared to be con fusion over the phone. EMS was called, and by the time they arrived to her home, her deficits had re solved. In the emergency department, she denies any active difficulty finding words, is feeling frustrated th at her deficits seem to resolve prior to evaluation every time. The patient reports occasional episo rocky similar to this in the past. Again, always resolved before medical evaluation. She denies activ e chest pain. Denies palpitations. Denies shortness of breath. Denies abdominal symptoms. Endorse s chronic pain and tingling of her neck and often face. Reports chronic pain and weakness of her lef t lower extremity. PAST MEDICAL HISTORY: 1. SVT, status post ablation on 10/26/2016. 2. Posttraumatic stress disorder. 3. Depression. 4. 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 5. Fibromyalgia. 6. Hiatal hernia. 7. Gastroesophageal reflux disease. 8. Hypertension. SOCIAL HISTORY: Negative for tobacco, occasional alcohol, no illicit drugs or marijuana. FAMILY HISTORY: Positive for stroke in her mother. REVIEW OF SYSTEMS: A 10-point review of systems is negative with the exception of that reported in t he HPI. PHYSICAL EXAMINATION: VITAL SIGNS: Blood pressure 106/71, heart rate 57, respiratory rate 18, 95% o n room air, 37.0. GENERAL: This is a middle-aged female, in no acute distress. Covering her eyes d uring our examination. HEENT: Notable for dry mucous membranes. Eyes: Negative for any icterus. CARDIAC: Patient's is regular rate and rhythm. PULMONARY: Clear to auscultation bilaterally. OLLIE ROINTESTINAL: Positive bowel sounds. MUSCULOSKELETAL: Negative for any lower extremity edema. SKI N: Negative for any rashes. NEUROLOGIC: Patient's cranial nerves 2 through 12 are grossly intact. Strength is grossly intact throughout. Left lower extremity is 4/5, the rest are 5/5. Gait was not examined. PSYCHIATRIC: She is cooperative on interview and examination. DATA: Sodium 142, creatinine 0.9, calcium 9.6. Noncontrast CT of the head, which I personally revie wed and interpreted, shows no acute intracranial findings. ASSESSMENT AND PLAN: This is a 56-year-old female presenting with word-finding difficulty and confus ion. 1. Possible transient ischemic attack. The rapid onset and resolving symptoms would be consistent w ith transient ischemic attack. It sounds, on history, the patient has had multiple episodes similar to this with negative workups in the past, and I agree that her deficits have resolved at the time of my evaluation. We will order MRI brain for the morning, as well as carotid ultrasound. The patient has had a recent echocardiogram, so will not repeat this. I have placed a neurology consult. She i s well known to her primary neurologist, Dr. Cr, who sounds like has been chronically managing her neurologic complaints. We will not empirically treat overnight. I have ordered hemoglobin A1c and lipids for the morning. I will give the patient 1 fluid bolus overnight, as her blood pressures are a little low in the emergency department, rule out any fluctuating hypovolemia. 2. Supraventricular tachycardia status, post ablation. Electrocardiogram looks normal at presentati on. We will continue her home medications once reconciled. 3. Psychiatric illness. Chart reports of posttraumatic stress disorder, depression, and multiple pe rsonality disorder. We will continue her home medicines without change. 4. Hypertension by history. The patient's blood pressures are low in the emergency department. We will give a fluid bolus and hold antihypertensives this evening. 5. Gastroesophageal reflux disease. We will continue proton pump inhibitor once reconciled. 6. Prophylaxis with Lovenox. DIET: Regular, once cleared by Speech. DISPOSITION: I expect less than 2 midnights. If the patient's neurologic complaints remain resolved , she will be a candidate for disposition after imaging and neurologic consultation in the morning. I have discussed the case with the emergency room physician. Patient will be triaged to the medical- surgical floor for care. /[id number]/MODL
[2016-11-13 20:16] LABS: % IMMATURE GRANULYOCYTES 0.4 % (0.0-1.1); ABSOLUTE IMMATURE GRANULOCYTES 0.04 10^3/uL (0.00-0.10); ADD DIFF? NO; ADD MORPH? NO; ADD SCAN? NO; ATYPICAL LYMPHOCYTE FLAG 10 (0-99); FRAGMENT RBC FLAG 0 (0-99); HEMATOCRIT 45.7 % (38.0-47.0); HEMOGLOBIN 14.8 g/dL (12.6-16.3); LEFT SHIFT FLG 0 (0-99); LIPEMIA HEMOLYSIS FLAG 80 (0-99); MEAN CELL HEMOGLOBIN CONCENTR. 32.4 g/dL (32.4-36.7); MEAN CELL VOLUME 86.4 fL (81.5-99.8); PLATELET CLUMPS FLAG 0 (0-99); PLATELET COUNT 315 10^3/uL (150-400); RED BLOOD CELL COUNT 5.29 10^6/uL (4.18-5.33); RED CELL DISTRIBUTION WIDTH 14.1 % (11.5-15.2)
[2016-11-13] MEDS: ACETAMINOPHEN 325 MG TAB PO PRN (23:29)
[2016-11-14 05:26] LABS: ANION GAP 9 mEq/L (8-16); CALCIUM 9.4 mg/dL (8.5-10.4); CARBON DIOXIDE 25 mEq/l (22-31); CHLORIDE 106 mEq/L (97-110); CHOLESTEROL 173 mg/dL (140-220); CHOLESTEROL/HDL RATIO 5.97 RATIO (1.00-4.44); CREATININE 0.8 mg/dL (0.6-1.0); GLOMERULAR FILTRATION RATE > 60; GLUCOSE 94 mg/dL (70-100); HIGH DENSITY LIPOPROTEIN 29 mg/dL (40-85); LDL/HDL RATIO 3.14 RATIO (1.00-3.22); LOW DENSITY LIPOPROTEIN 91 mg/dL (80-100); NON-HIGH DENSITY LIPOPROTEIN 144 mg/dL (90-129); POTASSIUM 4.1 mEq/L (3.5-5.2); SODIUM 140 mEq/L (134-144); TRIGLYCERIDE 267 mg/dL (35-135); VERY LOW DENSITY LIPOPROTEINS 53 mg/dL (8-25)
[2016-11-14] MEDS ORDERED: NON-FORMULARY NEW DRUG (Esomeprazole Mag Trihydrate [Nexium] 40 MG) PO SCH (09:00)
[2016-11-14] MEDS ORDERED: OLOPATADINE 0.1% 5 ML OPHT.BTL OP SCH (09:00)
[2016-11-14] MEDS ORDERED: Herbals/Supplements -Info Only PO SCH (09:00)
[2016-11-14] MEDS ORDERED: NON-FORMULARY NEW DRUG (Pregabalin [Lyrica] 200 MG) PO SCH (09:00)
[2016-11-14] MEDS ORDERED: OLOPATADINE HCL OP SCH (09:00)
--- NOTE | 2016-11-14 09:44 | ASMTCMCOM ---
CM Note CM Note Notes: 56 yo diabled female admitted for TIA, CP, SVT, increased troponin. 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 PT/OT evaluation: Patient back to her baseline, no therapy needs for discharge. Date Signed: 11/14/2016 09:44 AM Electronically Signed By:Daniella Simental LCSW
[2016-11-14] MEDS: ATENOLOL 50 MG TAB PO SCH ×2 (10:22→20:51)
[2016-11-14] MEDS: PANTOPRAZOLE SODIUM 40 MG TAB PO SCH (10:23)
[2016-11-14] MEDS: PREGABALIN 100 MG CAP PO SCH ×2 (10:23→20:51)
[2016-11-14] MEDS: ENOXAPARIN 40 MG/0.4 ML SYR SC SCH (10:24)
[2016-11-14] MEDS: ASPIRIN 81 MG CHEWABLE TAB PO SCH (13:14)
--- NOTE | 2016-11-14 14:37 | HOSPPROG ---
Hospitalist Progress Note Assessment/Plan: 56y female with confusion and word finding issues. First encounter, chart reviewed. D/W Dr Kumari #Word finding issues resolved etiol unclear, possibly psych related see Dr Kumari consult #Hx SVT stable on monitor hx of ablasion #Hx of psychiatric illness PTSD, depression, MPD cont home meds consider workup and evaluation if not better #Hx HTN stable #Dispo likely home in am if conts to be stable change to inpt status requires further evaluation Subjective: Still some confusion. No pain. Eating breakfast. Objective: Vital Signs Temp Pulse Resp BP Pulse Ox 36.7 C 56 L 16 130/82 H 97 11/14/16 11:49 11/14/16 11:49 11/14/16 11:49 11/14/16 11:49 11/14/16 11:49 Laboratory Results 11/13/16 19:52 11/14/16 04:16 11/13/16 11/14/16 11/15/16 05:59 05:59 05:59 Intake Total 250 Balance 250 - Physical Exam Constitutional: no apparent distress, appears nourished, not in pain Eyes: PERRL, anicteric sclera, EOMI Ears, Nose, Mouth, Throat: moist mucous membranes, hearing normal, ears appear normal Cardiovascular: regular rate and rhythym, No JVD, No edema Respiratory: no respiratory distress, no rales or rhonchi, clear to auscultation Gastrointestinal: normoactive bowel sounds, No tenderness, No ascites Skin: warm, normal color, No erythema Musculoskeletal: normal joint ROM, no joint effusions, generalized weakness Psychiatric: anxious, poor insight, poor judgement, poor memory ICD10 Worksheet Patient Problems: Problems Problem Status Onset TIA (transient ischemic attack) Acute Chest pain Acute Elevated troponin Acute Lightheadedness Acute SVT (supraventricular tachycardia) Acute
--- NOTE | 2016-11-14 14:47 | NEUROPROG ---
Assessment: [id number] CC: Speech Disturbance HPI: She noted on 11/13/16 she had several hours of word finding problems, intermittent slurred speech, and confusion. Symptoms had resolved when the patient was brought to the [facility] ER. She reported these episodes had occurred in the past for unknown reasons. She reported chronic pain and tingling of neck/ face as well as chronic pain and weakness of her LLE. She is followed in the neurology clinic by Dr. Cr. She was admitted for further evaluation. I saw the patient on 11/14/16 and confirmed the above history. She reported to me she believes her left leg weakness may actually be new. On exam she had left leg subjective sense of weakness but no other problems. PMHx: SVT status post ablation, PTSD, depression, possible multiple personality disorder, fibromyalgia, hiatal hernia, GERD, HTN Home Meds: atenolol, cymbalta, patanol, protonix, lyrica SHx: no tobacco FHx: stroke ROS: Pt denied acute fever, total vision loss, active severe chest pain, respiratory failure, total body severe rash, total bowel/bladder incontinence, psychosis, active seizures, or active bleeding O: VS reviewed General: Alert Eyes: Fundoscopic exam not able to visualize optic disks CV: Heart RRR, no murmur, no carotid bruit Lungs: Clear to auscultation bilaterally, no rhonci or rales Neuro: - Mental: . Oriented x person/place/date . concentration appears normal . speech fluency/comprehension normal . memory appears normal . fund of knowledge appear intact - Cranial Nerves: . II: PERRL, VFFTC . III/IV/: EOMI, no nystagmus, normal smooth pursuits, no Ptosis . V: facial sensation intact to LT . VII: face symmetric to eye closure and smile . VIII: hearing intact to conversation . IX/X: uvula raises symmetrically . XI: SCM 5/5 B/L strength . XII: tongue protrudes midline w/nl strength - Motor: . Tone: normal tone in all 4 extrem . Strength: no pronator drift, strength 5/5 throughout except for left leg weakness 4+/5 (unclear if she was giving full effort in left leg strength testing) - Reflexes: B/L bic/BR/patella 2/4 - Sensory: all 4 extrem intact to light touch - Coord: [id number] wnl, CATY wnl, [id number] wnl - Gait: normal casual gait - NIH SS 1 (left leg weakness) Labs: 11/13/16- CBC wnl, Chem wnl 11/14/16- LDL 91, H1AC pending Rads: 11/13/16- Head CT: Stable negative noncontrast CT of the brain. (I personally visualized the images 11/14/16) 11/14/16- Carotid U/S: no hemodynamically significant stenosis Assessment: 1. Recurrent episodes of hours of transient speech disturbance and mild confusion: Normal neurologic exam 11/14/16 (other than left leg weakness) and normal head CT 11/13/16. I suspected likely her chronic psychiatric disease is involved in her symptoms however that is a diagnosis of exclusion. DDx also includes stroke, seizure, or occult cause. Recommend full stroke w/u and if that is unremarkable then close f/u with Dr. Cr this week in the neurology clinic. 2. Left Leg Weakness: Unclear cause. Brain MRI pending to further evaluate. Plan: - Brain MRI w/ and w/o con - TTE - 24 hour telemetry - Blood pressure < 140/90 - LDL < 70 (91), begin low dose statin - H1AC < 7.0 (pending) - Begin aspirin 81 mg qd, continue at discharge - PT/OT/Speech evaluation - DVT prophy per hospitalist - Seizure precautions and no driving until f/u with Dr. Cr or Dung Porter, pt on Lyrica which has anti-seizure effects - F/U in 1 week in neurology clinic with Dr. Cr or Dung Porter Objective: Vital Signs Temp Pulse Resp BP Pulse Ox 36.7 C 56 L 16 130/82 H 97 11/14/16 11:49 11/14/16 11:49 11/14/16 11:49 11/14/16 11:49 11/14/16 11:49 Laboratory Results 11/13/16 19:52 11/14/16 04:16 11/13/16 11/14/16 11/15/16 05:59 05:59 05:59 Intake Total 250 Balance 250 Allergies/Adverse Reactions: hydrocodone [Hydrocodone] Allergy (Mild, Verified 10/04/16 13:33) heart races Penicillins Allergy (Mild, Verified 10/04/16 13:33) Rash clindamycin Allergy (Unknown, Verified 10/04/16 13:33) fluconazole Allergy (Unknown, Verified 10/04/16 13:33) metoclopramide Allergy (Unknown, Verified 10/04/16 13:33) lorazepam [From Ativan] Allergy (Verified 10/04/16 13:33)
[2016-11-14] MEDS ORDERED: GADOBUTROL 10 ML VIAL IVP ONE (15:40)
[2016-11-14] MEDS ORDERED: DULoxetine 60 MG CAP PO SCH (21:00)
[2016-11-14 23:30] VITALS: TEMP 97.9
[2016-11-15] MEDS: ACETAMINOPHEN 325 MG TAB PO PRN (00:03)
[2016-11-15 03:01] LABS: HEMOGLOBIN A1C 5.7 % (4.0-6.0)
[2016-11-15 08:51] VITALS: BP 132/95; PULSE 56; RESP 12; O2SAT 97
--- NOTE | 2016-11-15 09:18 | PDDCSUM ---
Discharge Summary Discharge Summary: DISCHARGE SUMMARY FOLLOW-UP ITEMS: Regular outpatient neurology follow-up; consider contacting outpatient Neurology if patient re-presents with similar neurologic symptoms in future, rather than initiating inpatient work-up. DATE OF ADMISSION: 11/13/16 DATE OF DISCHARGE: 11/15/2016 DISCHARGE DIAGNOSES: 1. Acute dysarthria 2. Chronic fibromyalgia CONSULTATIONS: Neurology PROCEDURES / IMAGING: MRI of brain with no abnormalities, carotid ultrasounds with no abnormalities CHIEF COMPLAINT: Acute dysarthria SUBJECTIVE: Patient is feeling well at time discharge, her symptoms have abated PHYSICAL EXAM ON DISCHARGE: Systolic blood pressure is 110 to 120, heart rate 50-60, afebrile overnight, satting on room air, speech is clear, she has facial symmetry, alert awake oriented x3, pain level 0/10 LABS ON DISCHARGE: Hemoglobin A1c 5.7%, LDL 90 HOSPITAL COURSE BY PROBLEM: 1. Acute dysarthria. Most likely secondary to somatization of her fibromyalgia without any underlying central neurologic basis. MRI of brain was completely normal and with her description of the symptoms and duration, if she had had a central neurologic basis, she would have had acute infarct noted on MRI. Since she did not, we highly suspect that these are more likely somatization and we have recommended that in the future if she experiences similar symptoms, that she contact her outpatient neurology provider. Neurology did recommend aspirin 81 mg for primary CVA prevention. 2. Chronic fibromyalgia. The patient experiences chronic fibromyalgia and is very concerned about the extensive workup she has received in the past, only to reveal that her symptoms are more likely consistent with somatization and underlying fibromyalgia. Highly recommend that she be arranged with outpatient psychiatrist as well as a therapist, to deal with the stresses of over medicalization. The patient has good insight into her situation and is very interested in pursuing non-pharmacologic non-medical means treating her underlying condition. DISCHARGE MEDICATIONS: Please see official discharge medication reconciliation sheet in chart , aspirin 81 mg daily, continue other home medications. DISCHARGE INSTRUCTIONS: Please follow up with Dr. David Cr this week and seek outpatient psychiatry and therapy referrals. TIME SPENT: Greater than 30 minutes were spent on direct patient care, as well as discharge planning and preparation.
[2016-11-15] MEDS: ENOXAPARIN 40 MG/0.4 ML SYR SC SCH (09:20)
[2016-11-15] MEDS: PREGABALIN 100 MG CAP PO SCH (09:20)
[2016-11-15] MEDS: ATENOLOL 50 MG TAB PO SCH (09:21)
[2016-11-15] MEDS: PANTOPRAZOLE SODIUM 40 MG TAB PO SCH (09:21)
[2016-11-15] MEDS: ASPIRIN 81 MG CHEWABLE TAB PO SCH (09:22)
--- NOTE | 2016-11-15 09:31 | NEUROPROG ---
Assessment: INTERVAL HISTORY: Patient still complaining of intermittent memory and word finding difficulty. Still complaining of leg weakness, though bilaterally now. EXAM: VS reviewed in EMR MS: awake, alert, attentive, oriented. Speech nondysarthric. Odd affect. Follows commands. Attends to both sides. CN: PERRLA, VFF, facial sensation preserved, face symmetric and strong, palatoglossal movements intact, shoulder shrug strong MOTOR: normal bulk/tone, no adventitial movements. Submax effort and giveway weakness in BLE with hip flexion, though, she is seen rising from a seated position without arm assist and ambulates around room without problem. SENSORY: patchy inconsistent reduction in PP/LT in all extremities COORD: no ataxia FN/HS REFLEX: plantars down, DTRs 2/4 GAIT: normal pattern of gait DATA: Labs, imaging and physiologic data reviewed in EMR IMPRESSION: // COGNITIVE INEFFICIENCY // CONVERSION DISORDER Patient with years of longstanding cognitive complaints - she was not experiencing any dysarthria, just her usual and longstanding word finding difficulty and memory problems, likely "fibro fog." Leg weakness is clearly nonorganic. She has a background of multiple psychiatric issues. No further neurologic workup. Followup with PCP for mood optimization and referral to psychiatry/psychology. Could be referred to neuropsychology for her cognitive issues. 25 mins in direct patient care activities on the floor. Objective: Vital Signs Temp Pulse Resp BP Pulse Ox 36.6 C 56 L 12 132/95 H 97 11/14/16 23:29 11/15/16 08:00 11/15/16 08:00 11/15/16 08:00 11/15/16 08:00 11/14/16 11/15/16 11/16/16 05:59 05:59 05:59 Intake Total 1400 Balance 1400 Allergies/Adverse Reactions: hydrocodone [Hydrocodone] Allergy (Mild, Verified 10/04/16 13:33) heart races Penicillins Allergy (Mild, Verified 10/04/16 13:33) Rash clindamycin Allergy (Unknown, Verified 10/04/16 13:33) fluconazole Allergy (Unknown, Verified 10/04/16 13:33) metoclopramide Allergy (Unknown, Verified 10/04/16 13:33) lorazepam [From Ativan] Allergy (Verified 10/04/16 13:33)
--- NOTE | 2016-11-15 10:43 | ASDISCHSUM ---
Discharge Information Plan Status:Home with No Needs Medically Cleared to Leave: Discharge Date:11/15/2016 10:08 AM CM D/C Disposition:Home, Routine, Self-Care ADT D/C Disposition:Home, Routine, Self-Care Projected Discharge Date:11/15/2016 10:08 AM Transportation at D/C: Discharge Delay Reason: Follow-Up Date:11/15/2016 10:08 AM Discharge Slot: Final Diagnosis: Placement Information Patient Contact Information Contact Name:ELISEO Relationship:Father Address: Work Phone: City: [facility] Phone: State/Zip Code: Email: Financial Information Financial Class: Primary Plan Desc:MEDICARE OUTPATIENT Primary Plan Number:[id number] Secondary Plan Desc:MEDICAID HEALTH FIRST MORTGAGE ADVISOR Secondary Plan Number:[id number] Assessment Information [facility] CM Progress Note CM Note CM Note Notes: 56 yo diabled female admitted for TIA, CP, SVT, increased troponin. 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 PT/OT evaluation: Patient back to her baseline, no therapy needs for discharge. Date Signed: 11/14/2016 09:44 AM Electronically Signed By:Daniella Simental LCSW Intervention Information Intervention Type:*IM-Signed Date of Service:11/14/2016 10:26 AM Patient Type:Inpatient Staff Member:Lizzy Leyva Hours: Discipline: Severity: Comment:
== END 2016-11-15 10:08 | disposition home or self-care (01) | DRG 882 ==
LOC: EDUNIT# → F3N 20:05 → OBSVTOIN 11-14 14:41
PROVIDERS: ADMIT Hospitalist; ATTEND Hospitalist
DX: F45.0 Somatization disorder (principal); R47.1 Dysarthria and anarthria; M79.7 Fibromyalgia; I10 Essential (primary) hypertension; F43.10 Post-traumatic stress disorder, unspecified; K21.9 Gastro-esophageal reflux disease without esophagitis; I47.1 Supraventricular tachycardia
CPT/HCPCS: 92523-GN; 97161-GP; 97165-GO; A9585; G0378; G8978-GP-CI; G8979-GP-CI; G8980-GP-CI; G8987-GO-CI; G8988-GO-CI; G8989-GO-CI; G9168-GN-CJ; G9169-GN-CI; G9170-GN-CJ; J1650

== ENCOUNTER 2016-12-05 13:08 | Emergency (ER) | payer OTHER, MEDICAID ==
--- NOTE | 2016-12-05 13:06 | EDPHY ---
HPI/HX/ROS/PE/MDM Narrative: CHIEF COMPLAINT: Chest discomfort, shortness of breath, anxiety HPI: The patient is a 56 y/o female arriving via EMS complaining of chest discomfort. This is her 19th visit to this ED in the past 12 months, many of those visits have been for chest pain. 1.5 months ago she was diagnosed with a heart ablation. She was discharged from this hospital in the last month, for a possible TIA that turned out to be somatization. Last night around 19:30, 18 hours ago, she began to feel heart palpitations and anxious. She states her heart rate went up to 120 last night. She did take Cymbalta this morning, for her anxiety. Per EMS, she was at [employer] when she developed chest discomfort and shortness of breath. The discomfort goes up and down, but burping decreases this discomfort. She is still feeling anxious, but does not want any medication with Ativan in it. Denies abdominal pain, paresthesias, fever or other pertinent symptoms. REVIEW OF SYSTEMS: Aside from elements discussed in the HPI, a comprehensive 10-point review of systems was reviewed and is negative. PMH: Hypertension, hypercholesteremia, fibromyalgia, GERD, depression, anxiety SOCIAL HISTORY: Lives in [place], [facility], single PHYSICAL EXAM: General: Patient has a wash cloth over her eyes during entire exam. Patient is anxious, alert, in no acute distress. ENT:Eyes are normal to inspection. ENT inspection normal. Neck: Normal inspection. Full range of motion. Respiratory:No respiratory distress. Breath sounds normal bilaterally. Cardiovascular: Regular rate and rhythm. Strong peripheral pulses. Normal cap refill. Abdomen:The abdomen is nontender to palpation. There are no peritoneal signs. There are normal bowel sounds. Back: Normal to inspection. No tenderness to palpation. Skin: Normal color. No rash. Warm and dry. Extremities: Normal appearance. Full range of motion. Neuro: Oriented x3. Normal motor function. Normal sensory function. Portions of this note were transcribed by an ED scribe. I personally performed the history, physical exam, and medical decision making; and confirm the accuracy of the information in the transcribed note. ED Course: EKG was ordered and interpreted by myself. Please see [employer] system for official reading. Reassessed patient and discussed imaging findings. Return precautions provided; patient is comfortable with this plan. MDM: This patient essentially presents with anxiety, palpitations and reflux. She is denying typical chest pain and her workup in the ED including ECG, troponin and d-dimer is negative. I see no evidence for ACS, PTX, PNA, TAD or PE. I think patient is safe for outpatient workup. - Data Points Imaging Results: Imaging Impressions Chest X-Ray 12/05/16 13:12 Impression: No evidence for acute cardiopulmonary abnormality. Imaging: I viewed and interpreted images myself Laboratory Results: Laboratory Results 12/05/16 13:30 12/05/16 13:30 12/05/16 12/05/16 12/05/16 13:30 13:30 13:30 WBC 6.53 10^3/uL 10^3/uL (3.80-9.50) RBC 5.39 10^6/uL H 10^6/uL (4.18-5.33) Hgb 15.0 g/dL g/dL (12.6-16.3) Hct 45.6 % % (38.0-47.0) MCV 84.6 fL fL (81.5-99.8) MCH 27.8 pg L pg (27.9-34.1) MCHC 32.9 g/dL g/dL (32.4-36.7) RDW 13.9 % % (11.5-15.2) Plt Count 280 10^3/uL 10^3/uL (150-400) MPV 10.7 fL fL (8.7-11.7) Neut % (Auto) 56.4 % % (39.3-74.2) Lymph % (Auto) 33.7 % % (15.0-45.0) Emmons % (Auto) 7.0 % % (4.5-13.0) Eos % (Auto) 2.1 % % (0.6-7.6) Baso % (Auto) 0.6 % % (0.3-1.7) Nucleat RBC Rel Count 0.0 % % (0.0-0.2) Absolute Neuts (auto) 3.68 10^3/uL 10^3/uL (1.70-6.50) Absolute Lymphs (auto) 2.20 10^3/uL 10^3/uL (1.00-3.00) Absolute Monos (auto) 0.46 10^3/uL 10^3/uL (0.30-0.80) Absolute Eos (auto) 0.14 10^3/uL 10^3/uL (0.03-0.40) Absolute Basos (auto) 0.04 10^3/uL 10^3/uL (0.02-0.10) Absolute Nucleated RBC 0.00 10^3/uL 10^3/uL (0-0.01) Immature Gran % 0.2 % % (0.0-1.1) Immature Gran # 0.01 10^3/uL 10^3/uL (0.00-0.10) D-Dimer 0.46 ug/mLFEU ug/mLFEU (0.00-0.50) Sodium 141 mEq/L mEq/L (134-144) Potassium 3.9 mEq/L mEq/L (3.5-5.2) Chloride 107 mEq/L mEq/L (97-110) Carbon Dioxide 24 mEq/l mEq/l (22-31) Anion Gap 10 mEq/L mEq/L (8-16) BUN 15 mg/dL mg/dL (7-23) Creatinine 0.9 mg/dL mg/dL (0.6-1.0) Estimated GFR > 60 Glucose 123 mg/dL H mg/dL (70-100) Calcium 9.7 mg/dL mg/dL (8.5-10.4) Troponin I < 0.012 ng/mL ng/mL (0.000-0.034) General Initial Vital Signs: Initial Vital Signs Temperature (C) 37.3 C 12/05/16 13:16 Heart Rate 75 12/05/16 13:16 Respiratory Rate 18 12/05/16 13:16 Blood Pressure 131/89 H 12/05/16 13:16 O2 Sat (%) 94 12/05/16 13:16 O2 Delivery Mode Room Air Allergies/Adverse Reactions: hydrocodone [Hydrocodone] Allergy (Mild, Verified 12/05/16 15:39) heart races Penicillins Allergy (Mild, Verified 12/05/16 15:39) Rash clindamycin Allergy (Unknown, Verified 12/05/16 15:39) fluconazole Allergy (Unknown, Verified 12/05/16 15:39) metoclopramide Allergy (Unknown, Verified 12/05/16 15:39) lorazepam [From Ativan] Allergy (Verified 12/05/16 15:39) Home Medications: Medication Instructions Recorded DULoxetine [Cymbalta 60 MG (*)] 60 mg PO HS 05/15/16 Pregabalin [LYRICA] 200 mg PO BID 07/26/16 Atenolol [Tenormin 50 mg (*)] 50 mg PO BID 10/26/16 Estradiol [Estrace Vaginal (*)] 1 ciarra VG DAILY PRN 10/26/16 Esomeprazole Mag Trihydrate 40 mg PO DAILY 11/13/16 [Nexium] Herbals/Supplements -Info Only 1 ea PO DAILY 11/13/16 Olopatadine HCl [Pataday] 1 drop OP DAILY 11/13/16 Aspirin [Aspirin 81mg (*)] 81 mg PO DAILY #30 tab.chew 11/15/16 Ondansetron Odt [Zofran Odt 4 mg 4 mg PO Q6 PRN #8 tab 12/05/16 (RX)] Promethazine HCl [Phenergan 12.5mg 12.5 mg PO TID PRN #10 tablet 12/05/16 tab] Sucralfate [Carafate] 1 gm PO QID #40 tab 12/05/16 Departure - Departure Disposition: Home, Routine, Self-Care Clinical Impression: Anxiety, Palpitations Condition: Good Instructions: Palpitations (ED), Anxiety (ED) Additional Instructions: Follow up with your primary care provider for unimproved symptoms within one week. Return to the Emergency Department for fever, chest pain, shortness of breath, increasing pain or other worsening of condition. Referrals: [facility],. [Clinic] - As per Instructions Report Scribed for: Darell Argueta Report Scribed by: Myranda Schafer Date of Report: 12/05/16 Time of Report: 13:05
[2016-12-05 13:18] VITALS: TEMP 99.1
--- NOTE | 2016-12-05 13:26 | CPEKG ---
Heart Rate: 72 RR Interval: 833 P-R Interval: 180 QRSD Interval: 90 QT Interval: 412 QTC Interval: 451 P [place]: 18 QRS [place]: 21 T Wave [place]: 20 EKG Severity - NORMAL ECG - EKG Impression: SINUS RHYTHM Electronically Signed By: Sanjuanita Gutierrez 05-Dec-2016 21:33:18
[2016-12-05 13:42] LABS: % IMMATURE GRANULYOCYTES 0.2 % (0.0-1.1); ABSOLUTE IMMATURE GRANULOCYTES 0.01 10^3/uL (0.00-0.10); ADD DIFF? NO; ADD MORPH? NO; ADD SCAN? NO; ATYPICAL LYMPHOCYTE FLAG 0 (0-99); FRAGMENT RBC FLAG 0 (0-99); HEMATOCRIT 45.6 % (38.0-47.0); LEFT SHIFT FLG 0 (0-99); LIPEMIA HEMOLYSIS FLAG 80 (0-99); MEAN CELL HEMOGLOBIN 27.8 pg (27.9-34.1); MEAN CELL HEMOGLOBIN CONCENTR. 32.9 g/dL (32.4-36.7); MEAN CELL VOLUME 84.6 fL (81.5-99.8); MEAN PLATELET VOLUME 10.7 fL (8.7-11.7); PLATELET CLUMPS FLAG 0 (0-99); PLATELET COUNT 280 10^3/uL (150-400); RED BLOOD CELL COUNT 5.39 10^6/uL (4.18-5.33); RED CELL DISTRIBUTION WIDTH 13.9 % (11.5-15.2)
[2016-12-05 13:54] LABS: ANION GAP 10 mEq/L (8-16); CALCIUM 9.7 mg/dL (8.5-10.4); CARBON DIOXIDE 24 mEq/l (22-31); CHLORIDE 107 mEq/L (97-110); CREATININE 0.9 mg/dL (0.6-1.0); GLOMERULAR FILTRATION RATE > 60; GLUCOSE 123 mg/dL (70-100); POTASSIUM 3.9 mEq/L (3.5-5.2); SODIUM 141 mEq/L (134-144)
[2016-12-05 14:05] LABS: TROPONIN I < 0.012 ng/mL (0.000-0.034)
[2016-12-05 14:34] VITALS: BP 122/80; PULSE 76; RESP 16; O2SAT 96
== END 2016-12-05 15:19 | disposition home or self-care (01) ==
LOC: EDUNIT#
DX: F41.9 Anxiety disorder, unspecified (principal); I10 Essential (primary) hypertension; Z79.82 Long term (current) use of aspirin

== ENCOUNTER 2016-12-05 15:36 | Emergency (ER) | payer OTHER, MEDICAID ==
[2016-12-05 15:44] VITALS: BP 141/91; PULSE 67; RESP 16; TEMP 97.5; O2SAT 95
--- NOTE | 2016-12-05 16:50 | EDPHY ---
H & P Time Seen by Provider: 12/05/16 16:25 HPI/ROS: CHIEF COMPLAINT: GI upset, nausea HISTORY OF PRESENT ILLNESS: This is a 56-year-old female who was seen in the emergency department and discharged 1 hour ago. She tells me that last night she developed anxiety and palpitations. This morning she developed nausea in addition to her anxiety and palpitations. She went for a walk. She continued to have anxiety and then developed burning chest discomfort which was relieved with burping. She was seen in the emergency department as mentioned above earlier today, 1 hour ago, and had negative workup. Patient tells me she is concerned that her upset stomach, nausea and burning sensation had not been addressed. Patient does take Nexium as well as ranitidine for ulcer disease. She also tells me that she just recently had a pH study performed to see if she is a candidate for an esophageal wrap. She does have a hiatal hernia. REVIEW OF SYSTEMS: Aside from elements discussed in the HPI, a comprehensive 10-point review of systems was reviewed and is negative. PAST MEDICAL HISTORY: Hypertension, hypercholesterolemia, fibromyalgia, GERD, depression, anxiety SOCIAL HISTORY: Disabled, single, lives in [place]. Nonsmoker. VITAL SIGNS Reviewed by me. GENERAL: Well-developed, well-nourished, seems somewhat anxious. Reports ongoing but mild nausea. HEENT: Atraumatic. Eyes: No icterus, no injection. Mouth: moist mucous membranes. No erythema or lesions. Neck: supple with no adenopathy. LUNGS: Clear to auscultation bilaterally, no wheezes, rhonchi or rales. CARDIAC: Regular rate and rhythm, no rubs, murmurs or gallops. ABDOMEN: Soft, mild epigastric tenderness to deep palpation. No rebound or guarding. BACK: No CVA tenderness. EXTREMITIES: No trauma. No edema. Range of motion is normal throughout. NEURO: Alert and oriented, grossly nonfocal. SKIN: Warm and dry, no rash. PSYCHIATRIC: Normal mentation, no agitation. Smoking Status: Never smoked Constitutional: Initial Vital Signs Temperature (C) 36.4 C 12/05/16 15:39 Heart Rate 67 12/05/16 15:39 Respiratory Rate 16 12/05/16 15:39 Blood Pressure 141/91 H 12/05/16 15:39 O2 Sat (%) 95 12/05/16 15:39 O2 Delivery Mode Room Air Allergies/Adverse Reactions: hydrocodone [Hydrocodone] Allergy (Mild, Verified 12/05/16 15:39) heart races Penicillins Allergy (Mild, Verified 12/05/16 15:39) Rash clindamycin Allergy (Unknown, Verified 12/05/16 15:39) fluconazole Allergy (Unknown, Verified 12/05/16 15:39) metoclopramide Allergy (Unknown, Verified 12/05/16 15:39) lorazepam [From Ativan] Allergy (Verified 12/05/16 15:39) Home Medications: Medication Instructions Recorded DULoxetine [Cymbalta 60 MG (*)] 60 mg PO HS 05/15/16 Pregabalin [LYRICA] 200 mg PO BID 07/26/16 Atenolol [Tenormin 50 mg (*)] 50 mg PO BID 10/26/16 Estradiol [Estrace Vaginal (*)] 1 ciarra VG DAILY PRN 10/26/16 Esomeprazole Mag Trihydrate 40 mg PO DAILY 11/13/16 [Nexium] Herbals/Supplements -Info Only 1 ea PO DAILY 11/13/16 Olopatadine HCl [Pataday] 1 drop OP DAILY 11/13/16 Aspirin [Aspirin 81mg (*)] 81 mg PO DAILY #30 tab.chew 11/15/16 Ondansetron Odt [Zofran Odt 4 mg 4 mg PO Q6 PRN #8 tab 12/05/16 (RX)] Promethazine HCl [Phenergan 12.5mg 12.5 mg PO TID PRN #10 tablet 12/05/16 tab] Sucralfate [Carafate] 1 gm PO QID #40 tab 12/05/16 Medical Decision Making ED Course/Re-evaluation: Lipase an H pylori were added onto the patient's previous labs. These were both negative. She received a GI cocktail and reports improved discomfort. Please see the discharge instructions Differential Diagnosis: Differential diagnosis for the patient's abdominal pain was considered including but not limited to cholecystitis, gastritis, peptic ulcers disease, and pancreatitis. - Data Points Medications Given: Discontinued Medications Al Hydroxide/Mg Hydroxide (Maalox Susp) 30 ml PO ONCE ONE Stop: 12/05/16 16:47 Last Admin: 12/05/16 17:19 Dose: 30 ml Hyoscyamine Sulfate (Levsin, Hyomax-Sl) 0.25 mg PO ONCE ONE Stop: 12/05/16 16:47 Last Admin: 12/05/16 17:18 Dose: 0.25 mg Lidocaine (Lidocaine 2% Viscous) 15 ml PO ONCE ONE Stop: 12/05/16 16:47 Last Admin: 12/05/16 17:19 Dose: 15 ml Ondansetron HCl (Zofran Odt) 4 mg PO EDNOW ONE Stop: 12/05/16 16:46 Last Admin: 12/05/16 17:19 Dose: Not Given Departure - Departure Disposition: Home, Routine, Self-Care Clinical Impression: Nausea, Gastritis Condition: Good Instructions: Gastritis (ED), Diet for Stomach Ulcers and Gastritis (ED), Gastroesophageal Reflux Disease (ED) Additional Instructions: Please continue taking Nexium until otherwise directed. Continue take ranitidine. You may try adding Carafate to help with abdominal upset. Please take a tablet 30 minutes prior to food. You been given a prescription for Phenergan. You may use this as needed for ongoing nausea. 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 Referrals: Victoria Armendariz MD [Primary Care Provider] - As per Instructions Prescriptions: Ondansetron Odt [Zofran Odt 4 mg (RX)] 4 mg PO Q6 PRN #8 tab PRN Reason: Nausea Promethazine HCl [Phenergan 12.5mg tab] 12.5 mg PO TID PRN #10 tablet PRN Reason: nausea Sucralfate [Carafate] 1 gm PO QID #40 tab
[2016-12-05] MEDS: HYOSCYAMINE SULFATE 0.125 MG TAB PO ONE (17:18)
[2016-12-05] MEDS: ONDANSETRON DISINTEGRATING 4 MG TAB PO ONE (17:19)
[2016-12-05] MEDS: MAG HYDROX/AL HYDROX/SIMETH 30 ML UDCUP PO ONE (17:19)
[2016-12-05] MEDS: LIDOCAINE 2% VISCOUS 15 ML UDCUP PO ONE (17:19)
== END 2016-12-05 18:00 | disposition home or self-care (01) ==
DX: K29.70 Gastritis, unspecified, without bleeding (principal); I10 Essential (primary) hypertension; Z79.82 Long term (current) use of aspirin

== ENCOUNTER 2017-01-27 16:06 | Emergency (ER) | payer OTHER, MEDICAID ==
[2017-01-27 16:14] VITALS: O2SAT 94
--- NOTE | 2017-01-27 16:21 | CPEKG ---
Heart Rate: 58 RR Interval: 1034 P-R Interval: 200 QRSD Interval: 94 QT Interval: 452 QTC Interval: 445 P [place]: 22 QRS [place]: -16 T Wave [place]: 17 EKG Severity - OTHERWISE NORMAL ECG - EKG Impression: SINUS RHYTHM EKG Impression: BORDERLINE LEFT AXIS DEVIATION Electronically Signed By: Cherie Dave 27-Jan-2017 22:06:19
--- NOTE | 2017-01-27 16:31 | EDPHY ---
H & P Stated Complaint: nausea/dizzy Time Seen by Provider: 01/27/17 16:08 HPI/ROS: CHIEF COMPLAINT: dizzy HISTORY OF PRESENT ILLNESS: The patient is a 56 y/o female with a history of fibromyalgia and psychiatric illness who arrives via ambulance complaining of intermittent nausea and dizziness for the last 2 days. She describes bending over and feeling suddenly so dizzy she needed to sit down. She describes room-spinning and difficulty keeping her balance, though this was alleviated slightly by sitting down. She had associated nausea during her dizziness episodes. She currently does not feel dizzy but is nauseated. Moving her head and changing position during initial assessment aggravates her nausea. No recent head/neck trauma or manipulation. She denies fever, vomiting, abdominal pain, chest pain, dyspnea, weakness, paresthesias, recent illness, recent trauma. This is her 21st visit to our ED his year. REVIEW OF SYSTEMS: Constitutional: No fever, no chills Eyes: No visual changes ENT: No sore throat Respiratory: No cough, no shortness of breath Cardiac: No chest pain Gastrointestinal: +nausea, no vomiting, no abdominal pain Genitourinary: No hematuria, no dysuria Musculoskeletal: No leg pain or swelling Skin: No rash Neurological: see HPI Psychiatric: No depression - Personal History Tetanus Vaccine Date: 2016 - Medical/Surgical History PMH: PMH includes: 1. Hypertension 2. Hypercholesterolemia 3. Fibromyalgia - Cymbalta 4. GERD 5. Depression 6. Anxiety 7. SVT status post ablation 10/26/16 8. PTSD 9. Possible multiple personality disorder 10. 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 Hx Asthma: No Hx Chronic Respiratory Disease: No Hx Diabetes: No Hx Cardiac Disease: Yes Hx Renal Disease: No Hx Cirrhosis: No Hx Alcoholism: No Hx HIV/AIDS: No Hx Splenectomy or Spleen Trauma: No Other PMH: ablation for SVT, Fibromyalgia, HTN, TONSILECTOMY, dissacossiative identity disorder.hiatial hernia, depression, anxiety, GERD, Arthritis. - Social History Smoking Status: Never smoked Additional Social History: Disabled. Single. Lives in [place]. PCP: Dr. Armendariz - Physical Exam Exam: General Appearance: Alert, pleasant Eyes: Pupils equal and round, no conjunctival pallor or injection. Horizontal nystagmus with leftward gaze ENT, Mouth: Mucous membranes moist Neck: Normal inspection Respiratory: Lungs are clear to auscultation Cardiovascular: Regular rate and rhythm Gastrointestinal: Abdomen is soft and non-tender Neurological: Alert, oriented x3, cranial nerves II through XII intact, motor 5 /5, sensory intact to light touch, normal gait Skin: Warm and dry, no rash Extremities: Nontender, no pedal edema Psychiatric: Mood and affect normal Constitutional: Initial Vital Signs Temperature (C) 36.7 C 01/27/17 16:11 Heart Rate 61 01/27/17 16:11 Respiratory Rate 18 01/27/17 16:11 Blood Pressure 127/80 H 01/27/17 16:11 O2 Sat (%) 94 01/27/17 16:11 O2 Delivery Mode Room Air Allergies/Adverse Reactions: hydrocodone [Hydrocodone] Allergy (Mild, Verified 12/05/16 15:39) heart races Penicillins Allergy (Mild, Verified 12/05/16 15:39) Rash clindamycin Allergy (Unknown, Verified 12/05/16 15:39) fluconazole Allergy (Unknown, Verified 12/05/16 15:39) metoclopramide Allergy (Unknown, Verified 12/05/16 15:39) lorazepam [From Ativan] Allergy (Verified 12/05/16 15:39) Home Medications: Medication Instructions Recorded DULoxetine [Cymbalta 60 MG (*)] 60 mg PO HS 05/15/16 Pregabalin [LYRICA] 200 mg PO BID 07/26/16 Atenolol [Tenormin 50 mg (*)] 50 mg PO BID 10/26/16 Estradiol [Estrace Vaginal (*)] 1 ciarra VG DAILY PRN 10/26/16 Esomeprazole Mag Trihydrate 40 mg PO DAILY 11/13/16 [Nexium] Herbals/Supplements -Info Only 1 ea PO DAILY 11/13/16 Olopatadine HCl [Pataday] 1 drop OP DAILY 11/13/16 Aspirin [Aspirin 81mg (*)] 81 mg PO DAILY #30 tab.chew 11/15/16 Ondansetron Odt [Zofran Odt 4 mg 4 mg PO Q6 PRN #8 tab 12/05/16 (RX)] Promethazine HCl [Phenergan 12.5mg 12.5 mg PO TID PRN #10 tablet 12/05/16 tab] Sucralfate [Carafate] 1 gm PO QID #40 tab 12/05/16 Meclizine HCl [Meclizine HCl 25 mg 25 mg PO TID PRN #15 tab 01/27/17 (RX,OTC)] Medical Decision Making ED Course/Re-evaluation: This is a 56 y/o female with a history of chronic pain and psychiatric illnesses who presents with a 2-day history of room-spinning dizziness and nausea that is aggravated by movement of her head. She has pronounced nystagmus to the left with movement of her head on exam. Her neuro exam is normal and I do not suspect a central etiology for the vertigo.. Her symptoms are consistent with benign paroxysmal positional vertigo. Plan for IV, basic labs, EKG, and symptom management. 25mg PO Meclizine and 1L IV NS administered. The 12 lead EKG was interpreted by myself. Sinus rhythm rate 58. See hard copy and/or "tracemaster" electronic copy for interpretation. 1720: feels better, continues to have nausea. Zofran 4mg IV given. 1830: Patient feels improved and was able to walk to the bathroom and back to her room unassisted without issue. Symptoms have improved with Meclizine. She will be discharged with standard vertigo follow up and return precautions. She agrees with plan for discharge. Differential Diagnosis: Dizziness including but not limited to peripheral and central causes of vertigo , orthostatic causes including dehydration, and blood loss. - Data Points Laboratory Results: Laboratory Results 01/27/17 16:55 01/27/17 16:55 01/27/17 01/27/17 16:55 16:55 WBC 7.87 10^3/uL 10^3/uL (3.80-9.50) RBC 5.24 10^6/uL 10^6/uL (4.18-5.33) Hgb 14.8 g/dL g/dL (12.6-16.3) Hct 44.7 % % (38.0-47.0) MCV 85.3 fL fL (81.5-99.8) MCH 28.2 pg pg (27.9-34.1) MCHC 33.1 g/dL g/dL (32.4-36.7) RDW 13.6 % % (11.5-15.2) Plt Count 302 10^3/uL 10^3/uL (150-400) MPV 10.7 fL fL (8.7-11.7) Neut % (Auto) 61.9 % % (39.3-74.2) Lymph % (Auto) 26.9 % % (15.0-45.0) [place] % (Auto) 7.0 % % (4.5-13.0) Eos % (Auto) 3.4 % % (0.6-7.6) Baso % (Auto) 0.5 % % (0.3-1.7) Nucleat RBC Rel Count 0.0 % % (0.0-0.2) Absolute Neuts (auto) 4.87 10^3/uL 10^3/uL (1.70-6.50) Absolute Lymphs (auto) 2.12 10^3/uL 10^3/uL (1.00-3.00) Absolute Monos (auto) 0.55 10^3/uL 10^3/uL (0.30-0.80) Absolute Eos (auto) 0.27 10^3/uL 10^3/uL (0.03-0.40) Absolute Basos (auto) 0.04 10^3/uL 10^3/uL (0.02-0.10) Absolute Nucleated RBC 0.00 10^3/uL 10^3/uL (0-0.01) Immature Gran % 0.3 % % (0.0-1.1) Immature Gran # 0.02 10^3/uL 10^3/uL (0.00-0.10) Sodium 141 mEq/L mEq/L (134-144) Potassium 3.5 mEq/L mEq/L (3.5-5.2) Chloride 102 mEq/L mEq/L (97-110) Carbon Dioxide 27 mEq/l mEq/l (22-31) Anion Gap 12 mEq/L mEq/L (8-16) BUN 19 mg/dL mg/dL (7-23) Creatinine 0.7 mg/dL mg/dL (0.6-1.0) Estimated GFR > 60 Glucose 139 mg/dL H mg/dL (70-100) Calcium 9.2 mg/dL mg/dL (8.5-10.4) Medications Given: Discontinued Medications Sodium Chloride (Ns) 1,000 mls @ 0 mls/hr IV ONCE ONE; Wide Open PRN Reason: Protocol Stop: 01/27/17 16:37 Last Admin: 01/27/17 16:43 Dose: 1,000 mls Meclizine HCl (Meclizine Hcl) 25 mg PO EDNOW ONE Stop: 01/27/17 16:36 Last Admin: 01/27/17 16:43 Dose: 25 mg Ondansetron HCl (Zofran) 4 mg IVP EDNOW ONE Stop: 01/27/17 17:24 Last Admin: 01/27/17 17:50 Dose: 4 mg Departure - Departure Disposition: Home, Routine, Self-Care Clinical Impression: Benign paroxysmal positional vertigo Qualifiers: Laterality: unspecified laterality Qualified Code(s): H81.10 - Benign paroxysmal vertigo, unspecified ear Condition: Good Instructions: Meclizine (By mouth), Benign Paroxysmal Positional Vertigo (ED) Additional Instructions: 1. Take Meclizine as prescribed as needed for vertigo symptoms. This medication can make you sleepy. 2. Follow up with your primary care provider or an ENT for unimproved symptoms over the next few days. 3. Use Tylenol or ibuprofen as directed on the packaging if needed for pain over the next few days. 4. Return to the ED for worsening of condition. 5. Your blood sugar is slightly elevated today. Follow up with Dr. Armendariz to evaluate for possible diabetes. Referrals: Victoria Armendariz MD [Primary Care Provider] - As per Instructions Darell Bay MD [Medical Doctor] - As per Instructions Prescriptions: Meclizine HCl [Meclizine HCl 25 mg (RX,OTC)] 25 mg PO TID PRN #15 tab PRN Reason: Dizziness Report Scribed for: Cherie Dave Report Scribed by: Ary Quiroz Date of Report: 01/27/17 Time of Report: 16:23 Physician Review and Approval Statement: 01/27/17 16:23 Portions of this note were transcribed by a medical device. I personally performed a history, physical exam, medical decision making, and confirmed accuracy of information the transcribed note.
[2017-01-27] MEDS ORDERED: MECLIZINE HCL 25 MG TAB PO ONE (16:35)
[2017-01-27] MEDS ORDERED: NS 1,000 ML IV ONE (16:36)
[2017-01-27 17:08] LABS: % IMMATURE GRANULYOCYTES 0.3 % (0.0-1.1); ABSOLUTE IMMATURE GRANULOCYTES 0.02 10^3/uL (0.00-0.10); ADD DIFF? NO; ADD MORPH? NO; ADD SCAN? NO; ATYPICAL LYMPHOCYTE FLAG 0 (0-99); FRAGMENT RBC FLAG 0 (0-99); HEMATOCRIT 44.7 % (38.0-47.0); HEMOGLOBIN 14.8 g/dL (12.6-16.3); LEFT SHIFT FLG 0 (0-99); LIPEMIA HEMOLYSIS FLAG 80 (0-99); MEAN CELL HEMOGLOBIN 28.2 pg (27.9-34.1); MEAN CELL HEMOGLOBIN CONCENTR. 33.1 g/dL (32.4-36.7); MEAN CELL VOLUME 85.3 fL (81.5-99.8); MEAN PLATELET VOLUME 10.7 fL (8.7-11.7); PLATELET CLUMPS FLAG 10 (0-99); PLATELET COUNT 302 10^3/uL (150-400); RED BLOOD CELL COUNT 5.24 10^6/uL (4.18-5.33); RED CELL DISTRIBUTION WIDTH 13.6 % (11.5-15.2)
[2017-01-27] MEDS ORDERED: ONDANSETRON 4 MG/2 ML VIAL IVP ONE (17:23)
[2017-01-27 17:31] LABS: ANION GAP 12 mEq/L (8-16); CALCIUM 9.2 mg/dL (8.5-10.4); CARBON DIOXIDE 27 mEq/l (22-31); CHLORIDE 102 mEq/L (97-110); CREATININE 0.7 mg/dL (0.6-1.0); GLOMERULAR FILTRATION RATE > 60; GLUCOSE 139 mg/dL (70-100); POTASSIUM 3.5 mEq/L (3.5-5.2); SODIUM 141 mEq/L (134-144)
[2017-01-27 19:25] VITALS: BP 123/88; PULSE 54; RESP 16; TEMP 97.9
== END 2017-01-27 19:25 | disposition home or self-care (01) ==
LOC: EDUNIT#
DX: H81.10 Benign paroxysmal vertigo, unspecified ear (principal); E86.9 Volume depletion, unspecified; I10 Essential (primary) hypertension; Z79.82 Long term (current) use of aspirin
CPT/HCPCS: 93005; 96361; 96374; 99284; J2405

== ENCOUNTER 2017-04-05 10:38 | Emergency (ER) | payer OTHER, MEDICAID ==
[2017-04-05 10:44] VITALS: TEMP 98.2; O2SAT 95
[2017-04-05] MEDS ORDERED: ONDANSETRON DISINTEGRATING 4 MG TAB PO ONE (10:44)
--- NOTE | 2017-04-05 10:44 | EDPHY ---
HPI/HX/ROS/PE/MDM Narrative: CHIEF COMPLAINT: "[place] like I needed to be checked out;" anxiety HPI: The patient is a 56 y/o female with anxiety, fibromyalgia, and borderline personality disorder who arrives by ambulance anxious and requesting a medical evaluation. This is her 21st visit to the ED here in the last 12 months for various complaints. Yesterday she felt what she describes as hot and cold flashes and then began to feel anxious about these symptoms and slept poorly due to worry. She continued to feel anxious today and mildly anxious and decided she didn't want to go to her therapy appointment, which is scheduled for 20 minutes from now. Upon arrival here she is now feeling like she wants to talk with her psychologist. She denies any other symptoms and it's unclear what she wants to be evaluated in the ED for. REVIEW OF SYSTEMS: Aside from elements discussed in the HPI, a comprehensive 10-point review of systems was reviewed and is negative. PMH: Anxiety, fibromyalgia, borderline personality disorder. SOCIAL HISTORY: Lives alone in [place]. Disabled. Unemployed. PHYSICAL EXAM: General:Patient is alert, in no acute distress. ENT:Eyes are normal to inspection. ENT inspection normal. Neck: Normal inspection. Full range of motion. Respiratory:No respiratory distress. Breath sounds normal bilaterally. Cardiovascular: Regular rate and rhythm. Strong peripheral pulses. Normal cap refill. Abdomen:The abdomen is nontender to palpation. There are no peritoneal signs. Back: Normal to inspection. No tenderness to palpation. Skin: Normal color. No rash. Warm and dry. Extremities: Normal appearance. Full range of motion. Neuro: Oriented x3. Normal motor function. Normal sensory function. ED Course: This is a 56 y/o female with anxiety and borderline personality disorder who presents via EMS requesting to be "checked out." Upon assessment she now feels like she should have gone to her therapy appointment rather than coming here. Her exam is benign. She declines anxiety medications and is not requesting any specific treatment. 4mg PO Zofran administered. Patient is requesting to leave. She will be discharged with standard anxiety care and follow up instructions. She plans to follow up with her psychologist. - Data Points Medications Given: Discontinued Medications Ondansetron HCl (Zofran Odt) 4 mg PO EDNOW ONE Stop: 04/05/17 10:45 Last Admin: 04/05/17 10:54 Dose: 4 mg General Initial Vital Signs: Initial Vital Signs Temperature (C) 36.8 C 04/05/17 10:42 Heart Rate 58 L 04/05/17 10:42 Respiratory Rate 16 04/05/17 10:42 Blood Pressure 134/96 H 04/05/17 10:42 O2 Sat (%) 95 04/05/17 10:42 O2 Delivery Mode Room Air Allergies/Adverse Reactions: hydrocodone [Hydrocodone] Allergy (Mild, Verified 04/05/17 10:41) heart races Penicillins Allergy (Mild, Verified 04/05/17 10:41) Rash clindamycin Allergy (Unknown, Verified 04/05/17 10:41) fluconazole Allergy (Unknown, Verified 04/05/17 10:41) metoclopramide Allergy (Unknown, Verified 04/05/17 10:41) lorazepam [From Ativan] Allergy (Verified 04/05/17 10:41) Home Medications: Medication Instructions Recorded DULoxetine [Cymbalta 60 MG (*)] 60 mg PO HS 05/15/16 Pregabalin [LYRICA] 200 mg PO BID 07/26/16 Atenolol [Tenormin 50 mg (*)] 50 mg PO BID 10/26/16 Estradiol [Estrace Vaginal (*)] 1 ciarra VG DAILY PRN 10/26/16 Esomeprazole Mag Trihydrate 40 mg PO DAILY 11/13/16 [Nexium] Herbals/Supplements -Info Only 1 ea PO DAILY 11/13/16 Olopatadine HCl [Pataday] 1 drop OP DAILY 11/13/16 Aspirin [Aspirin 81mg (*)] 81 mg PO DAILY #30 tab.chew 11/15/16 Ondansetron Odt [Zofran Odt 4 mg 4 mg PO Q6 PRN #8 tab 12/05/16 (RX)] Promethazine HCl [Phenergan 12.5mg 12.5 mg PO TID PRN #10 tablet 12/05/16 tab] Sucralfate [Carafate] 1 gm PO QID #40 tab 12/05/16 Meclizine HCl [Meclizine HCl 25 mg 25 mg PO TID PRN #15 tab 01/27/17 (RX,OTC)] Departure - Departure Disposition: Home, Routine, Self-Care Clinical Impression: Anxiety Condition: Good Instructions: Anxiety (ED) Additional Instructions: Follow up with your psychologist as planned. Referrals: [facility],. [Clinic] - As per Instructions Report Scribed for: Darell Argueta Report Scribed by: Ary Quiroz Date of Report: 04/05/17 Time of Report: 11:21 Physician Review and Approval Statement: Portions of this note were transcribed by an ED scribe. I personally performed the history, physical exam, and medical decision making; and confirm the accuracy of the information in the transcribed note.
--- NOTE | 2017-04-05 12:14 | ASMTCMCOM ---
CM Note CM Note Notes: Patient presented to the ED for anxiety, night sweats and not sleeping well. Received a call from Stacy Vera, Clinic donor relations coordinator at pt's PCP Dr Armendariz's office; we discussed patient would be best assessed and have her needs addressed as an outpatient. Stacy was able to get pt an appt today at 3pm with RUSTY Richardson at the clinic. Pt agreeable to this plan, states she will go to the cafeteria for lunch and wait around until the appt. Stacy aware and will connect with patient at appt. Spoke with pt's therapist at [facility], Madeleine Christiansen ([phone]) and she is also aware of plan. Pt had an appt with Madeleine today (at about the same time she arrived to the ED) but has another appt with her next week. CM available for further assistance if needed. Date Signed: 04/05/2017 12:13 PM Electronically Signed By:Gail Rodriguez RN
--- NOTE | 2017-04-05 12:17 | ASDISCHSUM ---
Discharge Information Plan Status:Home with No Needs Medically Cleared to Leave: Discharge Date: CM D/C Disposition:Home, Routine, Self-Care ADT D/C Disposition:Home, Routine, Self-Care Projected Discharge Date: Transportation at D/C:None or Unknown Discharge Delay Reason: Follow-Up Date: Discharge Slot: Final Diagnosis: Placement Information Patient Contact Information Contact Name:ELISEO Relationship: Address: Work Phone: City: [facility] Phone: State/[employer] Code: Email: Financial Information Financial Class: Primary Plan Desc:MEDICARE OUTPATIENT Primary Plan Number:[id number] Secondary Plan Desc:MEDICAID HEALTH FIRST [place] Secondary Plan Number:[id number] Assessment Information [facility] CM Progress Note CM Note CM Note Notes: Patient presented to the ED for anxiety, night sweats and not sleeping well. Received a call from Satcy Vera, Clinic cash applications coordinator at pt's PCP Dr Armendariz's office; we discussed patient would be best assessed and have her needs addressed as an outpatient. Stacy was able to get pt an appt today at 3pm with RUSTY Richardson at the clinic. Pt agreeable to this plan, states she will go to the cafeteria for lunch and wait around until the appt. Stacy aware and will connect with patient at appt. Spoke with pt's therapist at [facility], Madeleine Christiansen ([phone]) and she is also aware of plan. Pt had an appt with Madeleine today (at about the same time she arrived to the ED) but has another appt with her next week. CM available for further assistance if needed. Date Signed: 04/05/2017 12:13 PM Electronically Signed By:Gail Rodriguez RN LACE LACE Acuity / Level of Answers: No Care: Did the patient have an inpatient admission? # of Emergency department Answers: 9-12 visits in the last 6 months Social determinants Answers: Mental health diagnosis (anxiety, depression, pers onality disorders, etc.) Score: 8 Date Signed: 04/05/2017 12:15 PM Electronically Signed By:Gail Rodriguez RN Intervention Information Intervention Type:Health Clinic Date of Service:04/05/2017 12:16 PM Patient Type:Emergency Room Staff Member:BENEDICT Rodriguez, Gail Hours:0.5 Discipline:House Mover Severity: Comment:Spoke with BERTIN Mccray at [facility], scheduled apt for pt today. Spoke with pt's therapist at [facility].
[2017-04-05 12:19] VITALS: BP 119/81; PULSE 70; RESP 18
== END 2017-04-05 12:18 | disposition home or self-care (01) ==
LOC: EDUNIT#
DX: F41.9 Anxiety disorder, unspecified (principal); Z79.82 Long term (current) use of aspirin

== ENCOUNTER → 2017-05-09 | Outpatient (CLI) | payer OTHER, MEDICAID | LOC: FIMAGING 11:13 | PROVIDERS: ATTEND Family Medicine | DX: Z12.31 Encounter for screening mammogram for malignant neoplasm of breast (principal); Z80.3 Family history of malignant neoplasm of breast ==

== ENCOUNTER → 2017-06-15 | Outpatient (CLI) | payer OTHER, MEDICAID | LOC: FIMAGING 19:53 | PROVIDERS: ATTEND Family Medicine | DX: R05 Cough (principal); R09.89 Other specified symptoms and signs involving the circulatory and respiratory systems; R53.81 Other malaise ==

== ENCOUNTER 2017-07-11 15:34 | Emergency (ER) | payer OTHER, MEDICAID ==
[2017-07-11] MEDS ORDERED: ACETAMINOPHEN 500 MG TAB PO ONE (15:50)
[2017-07-11] MEDS: MECLIZINE HCL 25 MG TAB PO ONE (16:00)
--- NOTE | 2017-07-11 16:04 | EDPHY ---
H & P Time Seen by Provider: 07/11/17 15:37 HPI/ROS: CHIEF COMPLAINT: Dizziness HISTORY OF PRESENT ILLNESS: History of vertigo, presents with dizziness today which she describes as sense of movement worse with opening her eyes and turning her head and associated with nausea. Just like previous vertigo. She was going to see her primary care clinic today but a cough she has had for the last 3 weeks when she called thim to tell them she was dizzy and was not going to be able to make it 911 was called and she was brought to the ER. Patient says she has intermittent"piercing headaches"which are also previously present and not new. Denies fever chills or neck stiffness. No neck pain. Does say she has worsening of her generalized fibromyalgia pain. REVIEW OF SYSTEMS: Eye: no change in vision, light bothers her eyes ENT: no sore throat Cardiac: no chest pain or syncope Pulmonary: 3 weeks of intermittent cough with recent negative chest x-ray, no SOB Abdomen: no vomiting, diarrhea, abdominal pain Musculoskeletal: HPI, no neck stiffness Skin: no rash Neuro: HPI Constitutional: no fever : no urinary symptoms A comprehensive 10 point review of systems is otherwise negative aside from elements mentioned in the history of present illness. PAST MEDICAL HISTORY: Includes fibromyalgia, vertigo, SVT, GERD, and sees a therapist for what the patient tells me is borderline personality disorder. Social history: Nonsmoker, no alcohol General Appearance: Alert and conversant, cooperative. Eyes: No scleral icterus. Pupils equal round reactive extraocular motion intact and nystagmus looking to the right which reproduces the patient's symptoms. ENT, Mouth: Normal mucous membranes. Normal tympanic membranes. Respiratory: Normal respiratory effort, breath sounds equal, lungs are clear to auscultation. Cardiovascular: Regular rate and rhythm. Gastrointestinal: Abdomen is soft and non tender. Neurological: Alert, face symmetric, normal motor and sensory in extremities. Normal gosptd-dq-syde bilaterally. No clonus. Not ataxic with walking. Fluent speech. Skin: Warm and dry, no rashes. Musculoskeletal: No peripheral edema. Supple neck. Psychiatric: Flat affect. Emergency Department course/MDM: Patient presents with recurrent peripheral vertigo and is treated with oral meclizine and acetaminophen. These are which she says has been used successfully to treat her symptoms in the past. 173: Patient re-evaluated, still symptomatic. 1852: Re-evaluated, walk to the bathroom, feels better, headache is better, stable for discharge. Likely peripheral vertigo and I think cerebellar infarct or vertebral dissection are unlikely. I think that acute intracranial bleed or hemorrhage or stroke is also unlikely. Smoking Status: Never smoked Constitutional: Initial Vital Signs Temperature (C) 37.4 C 07/11/17 15:41 Heart Rate 57 L 07/11/17 15:41 Respiratory Rate 18 07/11/17 15:41 Blood Pressure 130/90 H 07/11/17 15:41 O2 Sat (%) 94 07/11/17 15:41 O2 Delivery Mode Room Air Allergies/Adverse Reactions: hydrocodone [Hydrocodone] Allergy (Mild, Verified 04/05/17 10:41) heart races Penicillins Allergy (Mild, Verified 04/05/17 10:41) Rash clindamycin Allergy (Unknown, Verified 04/05/17 10:41) fluconazole Allergy (Unknown, Verified 04/05/17 10:41) metoclopramide Allergy (Unknown, Verified 04/05/17 10:41) lorazepam [From Ativan] Allergy (Verified 04/05/17 10:41) Home Medications: Medication Instructions Recorded DULoxetine [Cymbalta 60 MG (*)] 60 mg PO HS 05/15/16 Pregabalin [LYRICA] 200 mg PO BID 07/26/16 Atenolol [Tenormin 50 mg (*)] 50 mg PO BID 10/26/16 Estradiol [Estrace Vaginal (*)] 1 ciarra VG DAILY PRN 10/26/16 Esomeprazole Mag Trihydrate 40 mg PO DAILY 11/13/16 [Nexium] Herbals/Supplements -Info Only 1 ea PO DAILY 11/13/16 Olopatadine HCl [Pataday] 1 drop OP DAILY 11/13/16 Aspirin [Aspirin 81mg (*)] 81 mg PO DAILY #30 tab.chew 11/15/16 Ondansetron Odt [Zofran Odt 4 mg 4 mg PO Q6 PRN #8 tab 12/05/16 (RX)] Promethazine HCl [Phenergan 12.5mg 12.5 mg PO TID PRN #10 tablet 12/05/16 tab] Sucralfate [Carafate] 1 gm PO QID #40 tab 12/05/16 Meclizine HCl [Meclizine HCl 25 mg 25 mg PO TID PRN #15 tab 01/27/17 (RX,OTC)] Meclizine HCl [Meclizine HCl 25 mg 25 mg PO Q6 PRN #20 tab 07/11/17 (RX,OTC)] Medical Decision Making Differential Diagnosis: Differential diagnosis considered for dizziness including but not limited to peripheral and central causes of vertigo, orthostatic causes including dehydration, and blood loss. - Data Points Laboratory Results: Laboratory Results 07/11/17 15:40 07/11/17 15:40 07/11/17 07/11/17 15:40 15:40 WBC 7.53 10^3/uL 10^3/uL (3.80-9.50) RBC 5.53 10^6/uL H 10^6/uL (4.18-5.33) Hgb 15.7 g/dL g/dL (12.6-16.3) Hct 46.9 % % (38.0-47.0) MCV 84.8 fL fL (81.5-99.8) MCH 28.4 pg pg (27.9-34.1) MCHC 33.5 g/dL g/dL (32.4-36.7) RDW 13.9 % % (11.5-15.2) Plt Count 309 10^3/uL 10^3/uL (150-400) MPV 11.6 fL fL (8.7-11.7) Neut % (Auto) 59.5 % % (39.3-74.2) Lymph % (Auto) 27.4 % % (15.0-45.0) [place] % (Auto) 8.1 % % (4.5-13.0) Eos % (Auto) 3.9 % % (0.6-7.6) Baso % (Auto) 0.7 % % (0.3-1.7) Nucleat RBC Rel Count 0.0 % % (0.0-0.2) Absolute Neuts (auto) 4.49 10^3/uL 10^3/uL (1.70-6.50) Absolute Lymphs (auto) 2.06 10^3/uL 10^3/uL (1.00-3.00) Absolute Monos (auto) 0.61 10^3/uL 10^3/uL (0.30-0.80) Absolute Eos (auto) 0.29 10^3/uL 10^3/uL (0.03-0.40) Absolute Basos (auto) 0.05 10^3/uL 10^3/uL (0.02-0.10) Absolute Nucleated RBC 0.00 10^3/uL 10^3/uL (0-0.01) Immature Gran % 0.4 % % (0.0-1.1) Immature Gran # 0.03 10^3/uL 10^3/uL (0.00-0.10) ESR 26 MM/HR MM/HR (0-30) Sodium 144 mEq/L mEq/L (135-145) Potassium 4.3 mEq/L mEq/L (3.3-5.0) Chloride 106 mEq/L mEq/L (97-110) Carbon Dioxide 26 mEq/l mEq/l (22-31) Anion Gap 12 mEq/L mEq/L (8-16) BUN 23 mg/dL mg/dL (7-23) Creatinine 0.7 mg/dL mg/dL (0.6-1.0) Estimated GFR > 60 Glucose 84 mg/dL mg/dL (70-100) Calcium 9.8 mg/dL mg/dL (8.5-10.4) Creatine Kinase 59 IU/L IU/L (0-156) Medications Given: Discontinued Medications Acetaminophen (Tylenol) 1,000 mg PO EDNOW ONE Stop: 07/11/17 15:51 Last Admin: 07/11/17 16:00 Dose: 1,000 mg Sodium Chloride (Ns) 1,000 mls @ 0 mls/hr IV EDNOW ONE; Wide Open PRN Reason: Protocol Stop: 07/11/17 17:38 Last Admin: 07/11/17 17:54 Dose: 1,000 mls Meclizine HCl (Meclizine Hcl) 25 mg PO EDNOW ONE Stop: 07/11/17 15:51 Last Admin: 07/11/17 16:00 Dose: 25 mg Meclizine HCl (Meclizine Hcl) 25 mg PO EDNOW ONE Stop: 07/11/17 17:39 Last Admin: 07/11/17 17:52 Dose: 25 mg Promethazine HCl (Phenergan) 12.5 mg IVP EDNOW ONE Stop: 07/11/17 17:38 Last Admin: 07/11/17 17:53 Dose: 12.5 mg Departure - Departure Disposition: Home, Routine, Self-Care Clinical Impression: Vertigo Condition: Good Instructions: Vertigo (ED) Referrals: Victoria Armendariz MD [Primary Care Provider] - As per Instructions Prescriptions: Meclizine HCl [Meclizine HCl 25 mg (RX,OTC)] 25 mg PO Q6 PRN #20 tab PRN Reason: Dizziness
[2017-07-11] MEDS ORDERED: NS 1,000 ML IV ONE (17:37)
[2017-07-11] MEDS ORDERED: PROMETHAZINE HCL 25 MG/ML INJ IVP ONE (17:37)
[2017-07-11] MEDS ORDERED: MECLIZINE HCL 25 MG TAB PO ONE (17:38)
[2017-07-11 17:52] LABS: CREATINE KINASE 59 IU/L (0-156); PLATELET COUNT 309 10^3/uL (150-400)
[2017-07-11 19:34] VITALS: BP 120/80
== END 2017-07-11 19:34 | disposition home or self-care (01) ==
LOC: EDUNIT#
DX: R42 Dizziness and giddiness (principal); E86.9 Volume depletion, unspecified
CPT/HCPCS: 96361; 96374; 99284; J2550

== ENCOUNTER 2017-08-03 12:03 | Emergency (ER) | payer OTHER, MEDICAID ==
[2017-08-03] MEDS ORDERED: MECLIZINE HCL 25 MG TAB PO ONE (12:48)
[2017-08-03 12:49] LABS: PLATELET COUNT 310 10^3/uL (150-400)
--- NOTE | 2017-08-03 12:58 | CPEKG ---
Heart Rate: 56 RR Interval: 1071 P-R Interval: 208 QRSD Interval: 88 QT Interval: 468 QTC Interval: 452 P [place]: 34 QRS [place]: 38 T Wave [place]: 24 EKG Severity - NORMAL ECG - EKG Impression: SINUS RHYTHM Electronically Signed By: Cherie Dave 03-Aug-2017 14:37:43
--- NOTE | 2017-08-03 13:23 | EDPHY ---
H & P Stated Complaint: DIZZY, "CONFUSION". Time Seen by Provider: 08/03/17 12:20 HPI/ROS: CHIEF COMPLAINT: Room spinning sensation HISTORY OF PRESENT ILLNESS: 56-year-old female with depression and fibromyalgia presents with a room spinning sensation. Onset of vertigo this morning she got out of bed. The room spinning sensation increases with head movement and position change. Associated with nausea and difficulty ambulating. She has meclizine at at home, but did not take meclizine. Similar to prior episodes of vertigo. She also has mental fogginess, which is not especially unusual for her. She was admitted in 10/2016 for dysarthria and had a normal brain MRI. At that time, her symptoms were felt secondary to somatization. REVIEW OF SYSTEMS: complete 10 point ROS negative except at noted in the HPI - Personal History Tetanus Vaccine Date: 2016 - Medical/Surgical History Hx Asthma: No Hx Chronic Respiratory Disease: No Hx Diabetes: No Hx Cardiac Disease: Yes Hx Renal Disease: No Hx Cirrhosis: No Hx Alcoholism: No Hx HIV/AIDS: No Hx Splenectomy or Spleen Trauma: No Other PMH: ablation for SVT, Fibromyalgia, HTN, TONSILECTOMY, dissacossiative identity disorder.hiatial hernia, depression, anxiety, GERD, Arthritis. - Social History Smoking Status: Never smoked - Physical Exam Exam: General Appearance: Alert, pleasant Eyes: Pupils equal and round, no conjunctival pallor or injection, horizontal nystagmus ENT, Mouth: Mucous membranes moist Neck: Normal inspection Respiratory: Lungs are clear to auscultation Cardiovascular: Regular rate and rhythm Gastrointestinal: Abdomen is soft and nontender Neurological: Alert, oriented x3, cranial nerves II through XII intact, motor 5 /5, sensory intact to light touch Skin: Warm and dry Extremities: Nontender, no pedal edema Psychiatric: Mood and affect normal Constitutional: Initial Vital Signs Temperature (C) 36.7 C 08/03/17 12:07 Heart Rate 61 08/03/17 12:07 Respiratory Rate 18 08/03/17 12:07 Blood Pressure 146/94 H 08/03/17 12:07 O2 Sat (%) 93 08/03/17 12:07 O2 Delivery Mode Room Air Allergies/Adverse Reactions: hydrocodone [Hydrocodone] Allergy (Mild, Verified 04/05/17 10:41) heart races Penicillins Allergy (Mild, Verified 04/05/17 10:41) Rash clindamycin Allergy (Unknown, Verified 04/05/17 10:41) fluconazole Allergy (Unknown, Verified 04/05/17 10:41) metoclopramide Allergy (Unknown, Verified 04/05/17 10:41) lorazepam [From Ativan] Allergy (Verified 04/05/17 10:41) Home Medications: Medication Instructions Recorded DULoxetine [Cymbalta 60 MG (*)] 60 mg PO HS 05/15/16 Pregabalin [LYRICA] 200 mg PO BID 07/26/16 Atenolol [Tenormin 50 mg (*)] 50 mg PO BID 10/26/16 Estradiol [Estrace Vaginal (*)] 1 ciarra VG DAILY PRN 10/26/16 Esomeprazole Mag Trihydrate 40 mg PO DAILY 11/13/16 [Nexium] Herbals/Supplements -Info Only 1 ea PO DAILY 11/13/16 Olopatadine HCl [Pataday] 1 drop OP DAILY 11/13/16 Aspirin [Aspirin 81mg (*)] 81 mg PO DAILY #30 tab.chew 11/15/16 Ondansetron Odt [Zofran Odt 4 mg 4 mg PO Q6 PRN #8 tab 12/05/16 (RX)] Promethazine HCl [Phenergan 12.5mg 12.5 mg PO TID PRN #10 tablet 12/05/16 tab] Sucralfate [Carafate] 1 gm PO QID #40 tab 12/05/16 Meclizine HCl [Meclizine HCl 25 mg 25 mg PO TID PRN #15 tab 01/27/17 (RX,OTC)] Meclizine HCl [Meclizine HCl 25 mg 25 mg PO Q6 PRN #20 tab 07/11/17 (RX,OTC)] Meclizine HCl [Meclizine HCl 25 mg 25 mg PO TID PRN #30 tab 08/03/17 (RX,OTC)] Medical Decision Making - Diagnostics EKG Interpretation: EKG interpreted by me reveals sinus rhythm, rate 56, no ST or T segment changes. Interpretation: Normal EKG ED Course/Re-evaluation: This patient presents with vertigo. Neurologic exam no are no concerning signs or symptoms suggestive of a central etiology for vertigo. Meclizine 25 mg orally given. After meclizine, the patient was able to the ambulate with steady gait and felt much better. Neurologic exam remains normal. I wrote a prescription for meclizine. She was encouraged to follow up with primary care physician. Differential Diagnosis: Differential diagnosis includes TIA, stroke, intracranial hemorrhage, tumor, electrolyte abnormality and acute labyrinthitis. - Data Points Laboratory Results: Laboratory Results 08/03/17 12:20 08/03/17 12:20 Medications Given: Discontinued Medications Meclizine HCl (Meclizine Hcl) 25 mg PO EDNOW ONE Stop: 08/03/17 12:49 Last Admin: 08/03/17 13:17 Dose: 25 mg Departure - Departure Disposition: Home, Routine, Self-Care Clinical Impression: Vertigo Condition: Good Instructions: Vertigo (ED) Additional Instructions: Return for worsening symptoms or any concerns. Referrals: Victoria Armendariz MD [Primary Care Provider] - 1-2 days without fail Prescriptions: Meclizine HCl [Meclizine HCl 25 mg (RX,OTC)] 25 mg PO TID PRN #30 tab PRN Reason: Dizziness
[2017-08-03 14:46] VITALS: BP 136/75
== END 2017-08-03 14:45 | disposition home or self-care (01) ==
LOC: EDUNIT# → EDBD
DX: R42 Dizziness and giddiness (principal); I10 Essential (primary) hypertension

== ENCOUNTER 2017-09-21 21:05 | Emergency (ER) | payer OTHER, MEDICAID ==
--- NOTE | 2017-09-21 21:34 | CPEKG ---
Heart Rate: 89 RR Interval: 674 P-R Interval: 200 QRSD Interval: 92 QT Interval: 380 QTC Interval: 463 P Hamilton: 44 QRS Hamilton: 56 T Wave Hamilton: 43 EKG Severity - NORMAL ECG - EKG Impression: SINUS RHYTHM Electronically Signed By: Cherie Dave 21-Sep-2017 23:04:05
--- NOTE | 2017-09-21 21:47 | EDPHY ---
H & P Stated Complaint: Palpitations, nausea, dizziness x1 hour Time Seen by Provider: 09/21/17 21:20 HPI/ROS: CHIEF COMPLAINT: Rapid heart rate, dizziness HISTORY OF PRESENT ILLNESS: 56-year-old female with anxiety presents with rapid heart rate and dizziness. Onset of rapid heart rate just prior to arrival. The rapid heart rate increases with standing position and his intermittent, associated with palpitations. She also felt dizzy with standing up. Associated with nausea. She felt fine earlier today and went to physical therapy. No recent illness, chest pain or shortness of breath. REVIEW OF SYSTEMS: complete 10 point ROS negative except at noted in the HPI - Personal History Current Tetanus/Diphtheria Vaccine: Yes Current Tetanus Diphtheria and Acellular Pertussis (TDAP): Yes Tetanus Vaccine Date: 2016 - Medical/Surgical History Hx Asthma: No Hx Chronic Respiratory Disease: No Hx Diabetes: No Hx Cardiac Disease: Yes Hx Renal Disease: No Hx Cirrhosis: No Hx Alcoholism: No Hx HIV/AIDS: No Hx Splenectomy or Spleen Trauma: No Other PMH: ablation for SVT, Fibromyalgia, HTN, TONSILECTOMY, dissacossiative identity disorder, hiatial hernia, depression, anxiety, GERD, Arthritis. - Social History Smoking Status: Never smoked - Physical Exam Exam: General Appearance: Alert, pleasant Eyes: Pupils equal and round, no conjunctival pallor ENT, Mouth: Mucous membranes moist Neck: Normal inspection Respiratory: Lungs are clear to auscultation Cardiovascular: Regular rate and rhythm Gastrointestinal: Abdomen is soft and nontender Neurological: A&O, nonfocal exam Skin: Warm and dry Extremities: Normal inspection Psychiatric: Anxious Constitutional: Initial Vital Signs Temperature (C) 36.7 C 09/21/17 21:09 Heart Rate 105 H 09/21/17 21:09 Respiratory Rate 16 09/21/17 21:09 Blood Pressure 149/102 H 09/21/17 21:09 O2 Sat (%) 94 09/21/17 21:09 O2 Delivery Mode Room Air Allergies/Adverse Reactions: hydrocodone [Hydrocodone] Allergy (Mild, Verified 04/05/17 10:41) heart races Penicillins Allergy (Mild, Verified 04/05/17 10:41) Rash clindamycin Allergy (Unknown, Verified 04/05/17 10:41) fluconazole Allergy (Unknown, Verified 04/05/17 10:41) metoclopramide Allergy (Unknown, Verified 04/05/17 10:41) lorazepam [From Ativan] Allergy (Verified 04/05/17 10:41) Home Medications: Medication Instructions Recorded DULoxetine [Cymbalta 60 MG (*)] 60 mg PO HS 05/15/16 Pregabalin [LYRICA] 200 mg PO BID 07/26/16 Atenolol [Tenormin 50 mg (*)] 50 mg PO BID 10/26/16 Estradiol [Estrace Vaginal (*)] 1 ciarra VG DAILY PRN 10/26/16 Esomeprazole Mag Trihydrate 40 mg PO DAILY 11/13/16 [Nexium] Herbals/Supplements -Info Only 1 ea PO DAILY 11/13/16 Olopatadine HCl [Pataday] 1 drop OP DAILY 11/13/16 Aspirin [Aspirin 81mg (*)] 81 mg PO DAILY #30 tab.chew 11/15/16 Promethazine HCl [Phenergan 12.5mg 12.5 mg PO TID PRN #10 tablet 12/05/16 tab] Sucralfate [Carafate] 1 gm PO QID #40 tab 12/05/16 Medical Decision Making - Diagnostics EKG Interpretation: EKG interpreted by me reveals normal sinus rhythm, rate 89, no ST or T segment changes. ED Course/Re-evaluation: IV normal saline 1 L and Zofran 4 mg IV given. HR 80 after IVF. Feels much better after IVF/Zofran, back to normal self. Clinical presentation c/w dehydration with significant anxiety component. shooter helper: NSR throughout. Safe/stable for d/c home. Differential Diagnosis: for palpitations includes though not limited to SVT, Afib, PVC's, electrolyte abn. - Data Points Laboratory Results: Laboratory Results 09/21/17 21:46 09/21/17 22:25 Medications Given: Discontinued Medications Sodium Chloride (Ns) 1,000 mls @ 0 mls/hr IV EDNOW ONE; Wide Open PRN Reason: Protocol Stop: 09/21/17 22:08 Last Admin: 09/21/17 22:14 Dose: 1,000 mls Ondansetron HCl (Zofran) 4 mg IVP EDNOW ONE Stop: 09/21/17 22:08 Last Admin: 09/21/17 22:14 Dose: 4 mg Departure - Departure Disposition: Home, Routine, Self-Care Clinical Impression: Palpitations Condition: Good Instructions: Heart Palpitations (ED), Dehydration (ED) Additional Instructions: Drink plenty of fluids. Please f/u with PCP. Return with worsening symptoms or any concerns. Referrals: Victoria Armendariz MD [Primary Care Provider] - As per Instructions (Call to make an appointment. )
[2017-09-21] MEDS ORDERED: NS 1,000 ML IV ONE (22:07)
[2017-09-21] MEDS ORDERED: ONDANSETRON 4 MG/2 ML VIAL IVP ONE (22:07)
[2017-09-21 22:19] LABS: PLATELET COUNT 288 10^3/uL (150-400)
[2017-09-21 23:33] VITALS: BP 114/87
== END 2017-09-21 23:53 | disposition home or self-care (01) ==
DX: R00.2 Palpitations (principal); E86.9 Volume depletion, unspecified; I10 Essential (primary) hypertension; Z79.82 Long term (current) use of aspirin
CPT/HCPCS: 93005; 96361; 96374; 99284; J2405

== ENCOUNTER 2017-11-04 11:20 | Emergency (ER) | payer OTHER, MEDICAID ==
--- NOTE | 2017-11-04 11:55 | EDPHY ---
H & P Stated Complaint: diarrhea Time Seen by Provider: 11/04/17 11:55 HPI/ROS: CHIEF COMPLAINT: Diarrhea, chronic dizziness HISTORY OF PRESENT ILLNESS: The patient is referred to the emergency department for evaluation of chronic intermittent diarrhea and dizziness. The patient has been evaluated by ENT who does not feel she is suffering from benign positional vertigo. The patient reports he has had chronic intermittent diarrhea. She denies any hematemesis or melena. The patient denies dysuria. She was seen at [facility] and sent to the ED for IV fluid rehydration. REVIEW OF SYSTEMS: A comprehensive 10 point review of systems is otherwise negative aside from elements mentioned in the history of present illness. Source: Patient Exam Limitations: No limitations - Personal History Current Tetanus/Diphtheria Vaccine: Yes Current Tetanus Diphtheria and Acellular Pertussis (TDAP): Yes Tetanus Vaccine Date: 2016 - Medical/Surgical History Hx Asthma: No Hx Chronic Respiratory Disease: No Hx Diabetes: No Hx Cardiac Disease: Yes Hx Renal Disease: No Hx Cirrhosis: No Hx Alcoholism: No Hx HIV/AIDS: No Hx Splenectomy or Spleen Trauma: No Other PMH: ablation for SVT, Fibromyalgia, HTN, TONSILECTOMY, dissacossiative identity disorder, hiatial hernia, depression, anxiety, GERD, Arthritis. - Social History Smoking Status: Never smoked - Physical Exam Exam: General Appearance: Obese female, no acute distress Eyes: Pupils equal and round no pallor or injection ENT, Mouth: Mucous membranes moist Respiratory: There are no retractions, lungs are clear to auscultation Cardiovascular: Regular rate and rhythm Gastrointestinal: Generalized abdominal tenderness, poorly localized, hyperactive bowel sounds Neurological: A&O, normal motor function, normal sensory exam, normal cranial nerves Skin: Warm and dry, no rashes Musculoskeletal: Neck is supple nontender Extremities: symmetrical, full range of motion Psychiatric: Patient is oriented X 3, there is no agitation Constitutional: Initial Vital Signs Temperature (C) 37 C 11/04/17 11:29 Heart Rate 58 L 11/04/17 11:29 Respiratory Rate 16 11/04/17 11:29 Blood Pressure 112/83 H 11/04/17 11:29 O2 Sat (%) 96 11/04/17 11:29 O2 Delivery Mode Room Air Allergies/Adverse Reactions: hydrocodone [Hydrocodone] Allergy (Mild, Verified 11/04/17 11:25) heart races Penicillins Allergy (Mild, Verified 11/04/17 11:25) Rash clindamycin Allergy (Unknown, Verified 11/04/17 11:25) fluconazole Allergy (Unknown, Verified 11/04/17 11:25) metoclopramide Allergy (Unknown, Verified 11/04/17 11:25) lorazepam [From Ativan] Allergy (Verified 11/04/17 11:25) Home Medications: Medication Instructions Recorded DULoxetine [Cymbalta 60 MG (*)] 60 mg PO HS 05/15/16 Pregabalin [LYRICA] 200 mg PO BID 07/26/16 Atenolol [Tenormin 50 mg (*)] 50 mg PO BID 10/26/16 Herbals/Supplements -Info Only 1 ea PO DAILY 11/13/16 Aspirin [Aspirin 81mg (*)] 81 mg PO DAILY #30 tab.chew 11/15/16 HCTZ (*) 11/04/17 Meclizine HCl 11/04/17 Ranitidine HCl 11/04/17 Medical Decision Making ED Course/Re-evaluation: The patient presents the ED with complaints of diarrhea and generalized abdominal pain. I find her abdominal examination to be benign. She did have an IV established. She received 2 L of normal saline. Laboratory testing is unremarkable for significant leukocytosis, dehydration, evidence of pancreatitis or hepatitis. The patient will be instructed to take Imodium as directed by her primary care provider. She is encouraged to return to the ED for the development of worsening abdominal pain or other concerns. Differential Diagnosis: Differential diagnosis considered includes dehydration, gastroenteritis, metabolic abnormality, pancreatitis, hepatitis - Data Points Laboratory Results: Laboratory Results 11/04/17 12:00 11/04/17 12:00 11/04/17 11/04/17 11/04/17 12:00 12:00 12:00 WBC 7.56 10^3/uL 10^3/uL (3.80-9.50) RBC 5.51 10^6/uL H 10^6/uL (4.18-5.33) Hgb 15.6 g/dL g/dL (12.6-16.3) Hct 47.3 % H % (38.0-47.0) MCV 85.8 fL fL (81.5-99.8) MCH 28.3 pg pg (27.9-34.1) MCHC 33.0 g/dL g/dL (32.4-36.7) RDW 13.3 % % (11.5-15.2) Plt Count 335 10^3/uL 10^3/uL (150-400) MPV 10.2 fL fL (8.7-11.7) Neut % (Auto) 60.0 % % (39.3-74.2) Lymph % (Auto) 28.7 % % (15.0-45.0) Ritchie % (Auto) 7.5 % % (4.5-13.0) Eos % (Auto) 2.6 % % (0.6-7.6) Baso % (Auto) 0.8 % % (0.3-1.7) Nucleat RBC Rel Count 0.0 % % (0.0-0.2) Absolute Neuts (auto) 4.53 10^3/uL 10^3/uL (1.70-6.50) Absolute Lymphs (auto) 2.17 10^3/uL 10^3/uL (1.00-3.00) Absolute Monos (auto) 0.57 10^3/uL 10^3/uL (0.30-0.80) Absolute Eos (auto) 0.20 10^3/uL 10^3/uL (0.03-0.40) Absolute Basos (auto) 0.06 10^3/uL 10^3/uL (0.02-0.10) Absolute Nucleated RBC 0.00 10^3/uL 10^3/uL (0-0.01) Immature Gran % 0.4 % % (0.0-1.1) Immature Gran # 0.03 10^3/uL 10^3/uL (0.00-0.10) Sodium 141 mEq/L mEq/L (135-145) Potassium 4.3 mEq/L mEq/L (3.3-5.0) Chloride 102 mEq/L mEq/L (97-110) Carbon Dioxide 29 mEq/l mEq/l (22-31) Anion Gap 10 mEq/L mEq/L (8-16) BUN 23 mg/dL mg/dL (7-23) Creatinine 0.8 mg/dL mg/dL (0.6-1.0) Estimated GFR > 60 Glucose 117 mg/dL H mg/dL (70-100) Calcium 9.6 mg/dL mg/dL (8.5-10.4) Total Bilirubin 0.8 mg/dL mg/dL (0.1-1.4) Conjugated Bilirubin 0.1 mg/dL mg/dL (0.0-0.5) Unconjugated Bilirubin 0.7 mg/dL mg/dL (0.0-1.1) AST 29 IU/L IU/L (14-46) ALT 40 IU/L IU/L (9-52) Alkaline Phosphatase 99 IU/L IU/L (38-126) Total Protein 7.2 g/dL g/dL (6.3-8.2) Albumin 4.2 g/dL g/dL (3.5-5.0) Lipase 234 IU/L IU/L (23-300) Beta HCG, Qual NEGATIVE Medications Given: Discontinued Medications Sodium Chloride (Ns) 1,000 mls @ 0 mls/hr IV EDNOW ONE; Wide Open PRN Reason: Protocol Stop: 11/04/17 12:01 Last Admin: 11/04/17 12:15 Dose: 1,000 mls Sodium Chloride (Ns) 1,000 mls @ 0 mls/hr IV EDNOW ONE; Wide Open PRN Reason: Protocol Stop: 11/04/17 12:01 Last Admin: 11/04/17 12:15 Dose: 1,000 mls Ondansetron HCl (Zofran) 4 mg IVP EDNOW ONE Stop: 11/04/17 12:40 Last Admin: 11/04/17 12:42 Dose: 4 mg Departure - Departure Disposition: Home, Routine, Self-Care Clinical Impression: Gastroenteritis Condition: Good Instructions: Gastroenteritis (ED) Additional Instructions: 1. I recommend taking Imodium as prescribed by your primary care provider. 2. Please return to the ED for markedly worsening symptoms or other concerns. Referrals: Victoria Armendariz MD [Primary Care Provider] - As per Instructions
[2017-11-04] MEDS ORDERED: NS 1,000 ML IV ONE ×2 (12:00)
[2017-11-04 12:18] LABS: PLATELET COUNT 335 10^3/uL (150-400)
[2017-11-04] MEDS ORDERED: ONDANSETRON 4 MG/2 ML VIAL IVP ONE (12:39)
[2017-11-04 13:54] VITALS: BP 122/80
== END 2017-11-04 13:55 | disposition home or self-care (01) ==
DX: K52.9 Noninfective gastroenteritis and colitis, unspecified (principal)
CPT/HCPCS: 96374; 99284; J2405

== ENCOUNTER 2018-06-13 13:42 | Observation (INO) | payer OTHER, MEDICAID ==
[2018-06-13] MEDS ORDERED: NS 1,000 ML IV ONE (13:48)
--- NOTE | 2018-06-13 13:51 | EDPHY ---
H & P Time Seen by Provider: 06/13/18 13:49 HPI/ROS: HPI CHIEF COMPLAINT: Left-sided chest pain. HISTORY OF PRESENT ILLNESS: This patient is a 57-year-old female she presents emergency room left-sided chest pain. This started approximately an hour ago. She was at rest at the library developed a pressure sensation in sharp stabbing pain left side of her chest radiating to her left jaw left shoulder. Not worse when she takes a deep breath in. She currently still has it. 911 was called and she arrived to the emergency room by EMS. She had a normal pre-hospital EKG. Past Medical History: Significant past medical history for SVT, fibromyalgia, hypertension, hyperlipidemia, depression, GERD, anxiety, dissociative identity disorder. Past Surgical History: No recent surgery Social History: Denies daily use of drugs alcohol tobacco. Family History: Family history of cardiovascular disease. ROS REVIEW OF SYSTEMS: 10 Systems were reviewed and negative with the exception of the elements mentioned in the history of present illness. Exam Constitutional triage nursing summary reviewed, vital signs reviewed, awake/ alert. Eyes normal conjunctivae and sclera, EOMI, PERRLA. HENT normal inspection, atraumatic, moist mucus membranes, no epistaxis, neck supple/ no meningismus, no raccoon eyes. Respiratory clear to auscultation bilaterally, normal breath sounds, no respiratory distress, no wheezing. Cardiovascular rate normal, regular rhythm, no murmur, no edema, distal pulses normal. Gastrointestinal soft, non-tender, no rebound, no guarding, normal bowel sounds, no distension, no pulsatile mass. Genitourinary no CVA tenderness. Musculoskeletal no midline vertebral tenderness, full range of motion, no calf swelling, no tenderness of extremities, no meningismus, good pulses, neurovascularly intact. Skin pink, warm, & dry, no rash, skin atraumatic. Neurologic awake, alert and oriented x 3, AAOx3, moves all 4 extremities equally, motor intact, sensory intact, CN II-XII intact, normal cerebellar, normal vision, normal speech. Psychiatric normal mood/affect. Heme/Lymph/Immune no lymphadenopathy. Differential Diagnosis: Differential diagnosis includes but is not limited to: ACS, atypical chest pain, pneumothorax, pneumonia, pulmonary embolism, aortic dissection, congestive heart failure, tumor, musculoskeletal pain, esophageal pain, GERD, peptic ulcer disease, pancreatitis Medical Decision Making: Plan for this patient IV establishment IV fluid bolus , EKG, troponin, chest x-ray, D-dimer, she received full-dose aspirin prior to arrival, will give a dose of nitroglycerin and re-evaluate. Re-evaluation: EKG interpretation by me on record in [facility] system. Impression time of EKG 1351, sinus rhythm rate of 56, appear interval 200, signs of acute ischemia. Troponin 0.00 1650: Patient re-evaluated this time resting comfortably. Her EKG shows no acute ischemia. Troponin negative. D-dimer was positive and she had unremarkable CT angiogram of the chest without evidence of PE. Given her chest pain radiating to her left chest, left jaw and left shoulder she will need to be admitted for further cardiovascular evaluation. I discussed the case with Dr. Quan, Agrees to admit. I have updated the patient she agrees for hospital admission. Source: Patient, EMS - Personal History Tetanus Vaccine Date: 2016 - Medical/Surgical History Hx Asthma: No Hx Chronic Respiratory Disease: No Hx Diabetes: No Hx Cardiac Disease: Yes Hx Renal Disease: No Hx Cirrhosis: No Hx Alcoholism: No Hx HIV/AIDS: No Hx Splenectomy or Spleen Trauma: No Other PMH: ablation for SVT, Fibromyalgia, HTN, TONSILECTOMY, dissacossiative identity disorder, hiatial hernia, depression, anxiety, GERD, Arthritis. - Social History Smoking Status: Never smoked Constitutional: Initial Vital Signs O2 Sat (%) 95 06/13/18 13:48 O2 Delivery Mode Room Air O2 (L/minute) 2 Allergies/Adverse Reactions: hydrocodone [Hydrocodone] Allergy (Mild, Verified 11/04/17 11:25) heart races Penicillins Allergy (Mild, Verified 11/04/17 11:25) Rash clindamycin Allergy (Unknown, Verified 06/13/18 14:19) Rash Home Medications: Medication Instructions Recorded Pregabalin [LYRICA] 200 mg PO BID 07/26/16 Atenolol [Tenormin 50 mg (*)] 50 mg PO BID 10/26/16 Aspirin [Aspirin 81mg (*)] 81 mg PO DAILY #30 tab.chew 11/15/16 Meclizine HCl [Meclizine HCl 25 mg 25 mg PO BID 11/04/17 (RX,OTC)] Ranitidine HCl [Zantac] 150 mg PO BID 11/04/17 Triamterene/Hydrochlorothiazid 1 each PO DAILY 11/04/17 [Triamterene-Hctz 37.5-25 mg Tb] DULoxetine [Cymbalta] 20 mg PO DAILY 06/13/18 Medical Decision Making - Data Points Laboratory Results: Laboratory Results 06/13/18 13:55 06/13/18 13:55 Medications Given: Discontinued Medications Al Hydroxide/Mg Hydroxide (Maalox Susp) 30 ml PO Q4HRS PRN PRN Reason: Indigestion Stop: 12/10/18 23:09 Last Admin: 06/13/18 23:19 Dose: 30 ml Aspirin (Aspirin) 81 mg PO DAILY [facility] Stop: 12/11/18 08:59 Last Admin: 06/14/18 09:58 Dose: 81 mg Atenolol (Tenormin) 50 mg PO BID [facility] Stop: 12/10/18 20:59 Last Admin: 06/13/18 21:00 Dose: 50 mg Duloxetine HCl (Cymbalta) 20 mg PO DAILY [facility] Stop: 12/11/18 08:59 Last Admin: 06/14/18 10:02 Dose: 20 mg Enoxaparin Sodium (Lovenox) 40 mg SC DAILY [facility] Stop: 12/11/18 08:59 Last Admin: 06/14/18 10:07 Dose: 40 mg Famotidine (Pepcid) 20 mg PO BID [facility] Stop: 12/10/18 20:59 Last Admin: 06/14/18 09:58 Dose: 20 mg Sodium Chloride (Ns) 1,000 mls @ 0 mls/hr IV EDNOW ONE; Wide Open PRN Reason: Protocol Stop: 06/13/18 13:49 Last Admin: 06/13/18 14:09 Dose: 1,000 mls Meclizine HCl (Meclizine Hcl) 25 mg PO BID [facility] Stop: 12/10/18 20:59 Last Admin: 06/14/18 10:07 Dose: 25 mg Nitroglycerin (Nitrostat) 0.4 mg SL Q5M PRN PRN Reason: Chest Pain Last Admin: 06/14/18 05:14 Dose: 0.4 mg Pregabalin (Lyrica) 200 mg PO BID [facility] Stop: 12/10/18 20:59 Last Admin: 06/14/18 10:02 Dose: 200 mg Promethazine HCl (Phenergan) 6.25 - 12.5 mg IVP Q6HRS PRN PRN Reason: Nausea/Vomiting, Use 2nd Stop: 12/10/18 17:08 Last Admin: 06/14/18 07:39 Dose: 6.25 mg Triamterene/HCTZ (Maxzide-25) 1 each PO DAILY [facility] Stop: 12/11/18 08:59 Last Admin: 06/14/18 09:59 Dose: 1 each Point of Care Test Results: Chemistry 06/13/18 14:28 POC Troponin I 0.00 ng/mL ng/mL (0.00-0.08) Departure - Departure Disposition: [facility] Inpatient Acute Clinical Impression: Chest pain Qualifiers: Chest pain type: unspecified Qualified Code(s): R07.9 - Chest pain, unspecified Condition: Fair
[2018-06-13 14:06] LABS: PLATELET COUNT 287 10^3/uL (150-400)
[2018-06-13] MEDS: NITROGLYCERIN 0.4 MG BTL SL PRN (14:09)
[2018-06-13 14:16] LABS: INR 0.99 (0.83-1.16); PROTIME(PATIENT) 12.7 SEC (12.0-15.0)
[2018-06-13] MEDS ORDERED: IOPAMIDOL (ISOVUE 370) 100 ML BTL IV ONE (15:11)
[2018-06-13] MEDS ORDERED: ACETAMINOPHEN 325 MG TAB PO PRN (17:09)
[2018-06-13] MEDS ORDERED: OXYCODONE/APAP 5/325 TAB PO PRN (17:09)
[2018-06-13] MEDS ORDERED: PROMETHAZINE HCL 25 MG/ML INJ IVP PRN (17:09)
--- NOTE | 2018-06-13 17:09 | PDGENHP ---
History and Physical History and Physical: Chief complaint: chest pain History of present illness: The pt is a 57yo F who presents with sharp, severe L sided CP that radiates to the back. 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 She has recently been seeing her [employer] Operator Dr. Chawla for recurrent palpitations/dizziness. She has H/o SVT and got an ablation in 2017. She is currently wearing her outpatient 48hr Holter monitor. She complains of intermittent daily pain all over her body, including her jaw, shoulders, arms, and legs. She has been trying to lose weight with protein meal replacement shakes, which cause some chest pressure and improves with belching. She notes that this sensation is different from the sharp chest pain for which she came to the ED. She denies changes in the pain with movement or taking in a deep breath. She admits that she has had increased stress lately, both financial and medical, and feels her fibromyalgia pain is worse than usual. Past medical history: SVT s/p ablation 2017, hypertension, GERD, hiatal hernia , PTSD, depression, TBI, post concussion syndrome, other psychiatric disorders, fibromyalgia, migraines, OA, Past surgical history: Right rotator cuff repair, tonsillectomy, wisdom tooth extraction. Medications: Aspirin 81 mg daily, atenolol 50 mg orally twice a day, Cymbalta 20 mg orally daily, meclizine 25 mg twice a day, Lyrica 200 mg twice a day, ranitidine 150 mg twice a day, triamterene/hydrochlorothiazide 37.5-25 mg daily. Allergies: Hydrocodone, penicillins, clindamycin. Social history: Drinks beer several times a week, has never smoked or used illicit drugs. Disabled. Lives alone. Family history: Stroke, diabetes type 2, heart disease, alcoholism, drug abuse , breast cancer, hypertension. Review of systems: 10 point review of systems was conducted and has many positive findings related to her chronic illnesses, but all pertinent acute symptoms are mentioned in HPI. Physical exam: Vitals: Reviewed General: The patient is an overweight female who is A&Ox3 and in no acute distress. HEENT: normocephalic, extraocular movements intact, conjunctivae clear. Nares and oral mucosa pink and moist. Neck: trachea midline, no visible masses, no external lesions. CV: +S1/S2, reg rate and rhythm. No murmurs/rubs/gallops. Resp: unlabored breathing, lungs clear to auscultation w/o rales, rhonchi, or wheezing. Mildly tender over CW throughout. Abd: soft and nondistended, bowel sounds present. Mildly tender to palpation throughout. Musculoskeletal: Normal muscle tone/bulk. Neuro: cranial nerves II - XII grossly intact. Intact gross motor and sensory function. Psych: appropriate mood/affect. Skin: No rash or ecchymoses or petechiae. : no suprapubic tenderness. Heme/lymph: No peripheral edema. Labs: WBC 8.2 hemoglobin 15.5 platelets 287 INR 0.99 D-dimer 0.8 sodium 140 potassium 3.6 chloride 101 CO2 26 BUN 22 creatinine 0.8 glucose 103 magnesium 2.1 calcium 9.4. Troponin I 0.0. ProBNP 65. Other Data: EKG -personally interpreted-sinus rhythm, rate 56, QTc 468. No acute ischemic abnormality. Chest CTA: 1. No definite pulmonary thromboemboli. 2. No aortic aneurysm or dissection. 3. Patchy opacities in the superior segment of the right lower lobe, which may represent scarring or early pneumonia, new since 2017. 4. No pleural effusion or pneumothorax. Impression and plan: Acute CP Palpitations h/o SVT s/p ablation QT prolongation Intermittent bradycardia, likely 2/2 beta jimmy Hypertension GERD/hiatal hernia Fibromyalgia PTSD/TBI Depression Migraines Chronic dizziness/orthostatic hypotension (per pt) Osteoarthritis with chronic knee pain Obesity -DDx etiology - cardiac, GI, anxiety, fibromyalgia, musculoskeletal. -CP protocol. Cardiac monitoring, trend trops. -Check nuclear stress test - Lexiscan since pt not very mobile. -Consulted Cardiology - to see pt in AM. -Continue home meds. Added holding parameters to atenolol. It is possible her BP meds are causing her recurrent dizziness -- she says she has had (+) orthostatic hypotension testing in the past, but is not sure if anything was done about it. -GI cocktail. -VTE ppx - Lovenox. -Code status: full. Observation status.
[2018-06-13] MEDS: PREGABALIN 100 MG CAP PO SCH (20:59)
[2018-06-13] MEDS ORDERED: ATENOLOL 50 MG TAB PO SCH (21:00)
[2018-06-13] MEDS: MECLIZINE HCL 25 MG TAB PO SCH (21:00)
[2018-06-13] MEDS: FAMOTIDINE 20 MG TAB PO SCH (21:00)
[2018-06-13] MEDS ORDERED: MAG HYDROX/AL HYDROX/SIMETH 30 ML UDCUP PO PRN (23:10)
[2018-06-14] MEDS ORDERED: ATROPINE SULFATE 1 MG/10 ML SYR ONE (03:07)
--- NOTE | 2018-06-14 03:25 | HOSPPROG ---
Hospitalist Progress Note Assessment/Plan: Hospitalist night float note Arrive to bedside after RNs alerted that patient had significant bradycardia and potentially asystole. She is in process of having her labs drawn when she had a syncopal episode while lying in bed. She likely had a vagal response. Patient's heart rate has been in the 50s to 60s at time of the blood draw subsequently declined to the 30s. Patient awoke with verbal stimulation. She was a little disoriented initially but mentation did improve. No chest pain palpitations. Heart rate improved to the 50s. Objective: Vital Signs Temp Pulse Resp BP Pulse Ox 36.6 C 67 20 125/79 H 95 06/13/18 23:48 06/13/18 21:00 06/13/18 23:48 06/13/18 23:48 06/13/18 23:48 PT 12.7 SEC (12.0-15.0) 06/13/18 13:55 INR 0.99 (0.83-1.16) 06/13/18 13:55 ICD10 Worksheet Patient Problems: Problems Problem Status Onset Chest pain Acute Dysarthria Acute Elevated troponin Acute Lightheadedness Acute SVT (supraventricular tachycardia) Acute
[2018-06-14] MEDS: NITROGLYCERIN 0.4 MG BTL SL PRN ×2 (04:53→05:14)
[2018-06-14 05:36] LABS: PLATELET COUNT 252 10^3/uL (150-400)
--- NOTE | 2018-06-14 05:51 | CPEKG ---
Test Reason : OPEN Blood Pressure : / mmHG Vent. Rate : 055 BPM Atrial Rate : 054 BPM P-R Int : 222 ms QRS Dur : 096 ms QT Int : 502 ms P-R-T Axes : 048 081 041 degrees QTc Int : 481 ms Sinus rhythm Prolonged MA interval Nonspecific anterior T abnl Confirmed by Jocelyne Rivera ([id number]) on 06/14/2018 5:51:10 AM Referred By: Jacey Quan Confirmed By:Jocelyne Rivera
[2018-06-14] MEDS ORDERED: TRIAMTERENE/HCTZ 37.5/25 1 EACH TAB PO SCH (09:00)
[2018-06-14] MEDS ORDERED: ENOXAPARIN 40 MG/0.4 ML SYR SC SCH (09:00)
[2018-06-14] MEDS ORDERED: DULoxetine 20 MG CAP PO SCH (09:00)
[2018-06-14] MEDS ORDERED: ASPIRIN 81 MG CHEWABLE TAB PO SCH (09:00)
[2018-06-14] MEDS: FAMOTIDINE 20 MG TAB PO SCH (09:58)
[2018-06-14] MEDS: PREGABALIN 100 MG CAP PO SCH (10:02)
[2018-06-14] MEDS: MECLIZINE HCL 25 MG TAB PO SCH (10:07)
[2018-06-14] MEDS ORDERED: REGADENOSON 0.4 MG/5 ML SYR IVP ONE (11:32)
--- NOTE | 2018-06-14 12:03 | ASMTCMCOM ---
CM Note CM Note Notes: 06/14/2018 Case Management Note Discussed pt with MD this morning. Pt admitted for chest pain, currently has holter monitor. Discussed with RN. There are no therapy evals ordered today. [place] to stress test. Anticipating independent discharge. PCP is Dr. Armendariz. Left for day care director Liliya Brooks (ext [phone]) notifying of admission. Case Management d/c poc: to be determined. Case Management to follow. Date Signed: 06/14/2018 12:02 PM Electronically Signed By:Lore Muñiz RN
--- NOTE | 2018-06-14 13:45 | GCON ---
[f rep st] CONSULTATION DATE OF CONSULTATION: 06/14/2018 INDICATION FOR CONSULTATION: Chest pain. 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 She had recently been seen by Bob Geronimo NP in the electrophysiology department at [facility] on June 22, 2018, with complaints of incre asing palpitations. Workup at the time included complete 2D echocardiogram and 48-hour Holter monito r. She is currently wearing her Holter monitor. The patient states she was in her usual state of health until last evening when she developed left-si ded chest pressure. She describes her chest pressure as 6/10, nonradiating, stabbing pain, lasting s everal minutes and resolving spontaneously. She states that she has had similar episodes of intermit tent chest pressure since May 14, 2018. She denies any complaints of shortness of breath, or dyspn ea on exertion. No complaints of PND, orthopnea, or lower extremity edema. The patient has no known history of coronary artery disease. The patient also states she has had intermittent episodes of palpitations, but no associated dizzines s, lightheadedness, near syncope, or syncope. Of note, during her hospitalization, she did have a 9.7 second pause that occurred in the early hours this morning when an IV was attempted to be placed in her hand. She felt lightheaded, near syncopal , lost consciousness and recovered quickly. The patient states that she has had a known history of p assing out at the site of needles giving blood and getting shots since the age of 8. No episodes of syncope outside of stimulus of needles or blood draws. Currently, at the time of my exam, she is resting comfortably without complaint. PAST MEDICAL HISTORY: 1. AVNRT status post ablation September 2016. 2. Hypertension. 3. Hyperlipidemia. 4. Hiatal hernia. 5. GERD. 6. Depression. 7. History of traumatic brain injury. 8. Fibromyalgia. 9. Migraines. 10. History of inappropriate sinus tachycardia. HOME MEDICATIONS: Include triamterene-hydrochlorothiazide 37.5/25 mg daily, atenolol 50 mg b.i.d., a spirin 81 mg daily, Zantac 150 mg p.o. b.i.d., Lyrica 200 mg p.o. b.i.d., meclizine 25 mg p.o. b.i.d. , Cymbalta 20 mg daily. ALLERGIES: Allergies to medications include hydrocodone, penicillins and clindamycin. SOCIAL HISTORY: She currently lives alone. She is a nonsmoker. She does not drink alcohol. No ill icit drug use. She has no children. PHYSICAL EXAMINATION: VITAL SIGNS: Blood pressure 114/74, heart rate of 56 in sinus rhythm, respira tory rate of 12, oxygen saturation 97% on room air, temperature 36.5. GENERAL: She is awake, alert, oriented and appropriate, in no apparent distress. HEENT: There is no evidence of JVP or carotid b ruits. LUNGS: Clear to auscultation bilaterally. CARDIAC: S1, S2, regular rate and rhythm. No mu rmurs, rubs, or gallops. ABDOMEN: Soft, nontender and nondistended. There is no pulsatile mass or abdominal bruit. EXTREMITIES: She has no evidence of cyanosis, clubbing or edema. DATA: ECG demonstrates sinus bradycardia with first-degree AV block with heart rate of 50 beats per minute. QT interval, per my exam, corrects to 503 milliseconds based off Jenkins formula in the setti ng of sinus bradycardia at 50 beats per minute. White blood cell count 6.87, hemoglobin 14.2, hematocrit 42.9, platelet count 252. Sodium 139, potas sium 3.6, chloride 107, bicarb 26, BUN 18, creatinine 0.7, magnesium 2.1, calcium 9.4, AST 41, ALT 62 . Serial troponins are negative x3, N-terminal proBNP 65. Echocardiogram performed June 12, 2018, demonstrates normal left ventricular size and function. Nor mal atrial dimensions. No significant valve disease. Normal pulmonary pressure with RV systolic pre ssure of 26 mmHg. Nuclear imaging pending. Telemetry does demonstrate 9.7 second pause that occurred at the time of attempted IV insertion. IMPRESSION: 1. Atypical chest pain. 2. Palpitations. 3. Sinus arrest of 9.7 seconds consistent with vagally-mediated episode with clear trigger of IV rehana cement with known history of syncope dating back to the age of 8 with shots and needles. SUMMARY: The patient is a pleasant 57-year-old female with a known history of AVNRT status post abla tion in September 2016, who presents with intermittent episodes of atypical chest pain that have been oc curring over the last 1 month. Her troponins have been negative x3. ECGs demonstrate no evidence of ischemia. Nuclear imaging results pending. If nuclear imaging demonstrates normal perfusion functi on, I think patient will be stable for discharge home with followup. She is currently wearing a [place] er monitor and she is planning to follow up with the Bob Geronimo in her office. PLAN: 1. No further cardiac testing. 2. Awaiting the final report from pharmacologic nuclear stress test performed earlier today. 3. If nuclear imaging is normal, the patient will be stable for discharge home with followup in our office. /[id number]/MODL
[2018-06-14 15:34] VITALS: BP 113/72
--- NOTE | 2018-06-14 15:53 | HOSPPROG ---
Hospitalist Progress Note Assessment/Plan: 57 yo F w h/o SVT here w CP CP: neg trop, ekg and CT PE stress images neg vasovagal: longstanding h/o syncope w blood draws SVT: has outpt follow up w holter 9 second pause: during vasovagal dispo: home today if nuc images neg Subjective: case d/w dr baker. had sig vasovagal episode overnight during venipuncture Objective: Vital Signs Temp Pulse Resp BP Pulse Ox 36.6 C 59 L 18 113/72 95 06/14/18 15:34 06/14/18 15:34 06/14/18 15:34 06/14/18 15:34 06/14/18 15:34 Laboratory Results 06/14/18 05:21 06/14/18 05:21 06/13/18 06/14/18 06/15/18 05:59 05:59 05:59 Intake Total 240 Balance 240 PT 12.7 SEC (12.0-15.0) 06/13/18 13:55 INR 0.99 (0.83-1.16) 06/13/18 13:55 - Physical Exam Constitutional: no apparent distress, appears nourished Eyes: PERRL, anicteric sclera Ears, Nose, Mouth, Throat: moist mucous membranes, hearing normal Cardiovascular: regular rate and rhythym, no murmur, rub, or gallop Respiratory: no respiratory distress, no rales or rhonchi Gastrointestinal: normoactive bowel sounds, soft, non-tender abdomen Genitourinary: no bladder fullness, No shay in urethra Skin: warm Musculoskeletal: full muscle strength ICD10 Worksheet Patient Problems: Problems Problem Status Onset Chest pain Acute Dysarthria Acute Elevated troponin Acute Lightheadedness Acute SVT (supraventricular tachycardia) Acute
--- NOTE | 2018-06-14 16:06 | ASMTLACE ---
LACE Length of stay for Answers: Less than 1 day current admission Acuity / Level of Answers: No Care: Did the patient have an inpatient admission? Comorbidities - select Answers: Opioid dependence all that apply / Chronic pain Other Notes: HTN; HLD # of Emergency department Answers: 1-2 visits in the last 6 months Social determinants Answers: Mental health diagnosis (anxiety, depression, pers onality disorders, etc.) Score: 9 Date Signed: 06/14/2018 04:05 PM Electronically Signed By:Lore Muñiz RN
--- NOTE | 2018-06-14 16:09 | ASDISCHSUM ---
Discharge Information Plan Status:Home with No Needs Medically Cleared to Leave:06/14/2018 Discharge Date:06/14/2018 CM D/C Disposition:Home, Routine, Self-Care ADT D/C Disposition: Projected Discharge Date:06/14/2018 Transportation at D/C:Taxicab Discharge Delay Reason: Follow-Up Date:06/14/2018 Discharge Slot: Final Diagnosis: Placement Information Patient Contact Information Contact Name:ELISEO Relationship:Father Address: Work Phone: City: [facility] Phone: [facility]/Zip Code: Email: Financial Information Financial Class:Medicare Advantage Plans Primary Plan Desc:[employer] Primary Plan Number:[id number] Secondary Plan Desc:MEDICA[employer] [place] Secondary Plan Number:[id number] Assessment Information [facility] CM Progress Note CM Note CM Note Notes: 06/14/2018 Case Management Note Discussed pt with this morning. Pt admitted for chest pain, currently has holter monitor. Discussed with RN. There are no therapy evals ordered today. Met pt in [facility] on the way to stress test. Anticipating independent discharge. PCP is Dr. Armendarzi. [facility] for care specialist Liliya Brooks (ext [phone]) notifying of admission. Case Management d/c poc: to be determined. Case Management to follow. Date Signed: 06/14/2018 12:02 PM Electronically Signed By:Lore Muñiz RN LACE LACE Length of stay for Answers: Less than 1 day current admission Acuity / Level of Answers: No Care: Did the patient have an inpatient admission? Comorbidities - select Answers: Opioid dependence all that apply / Chronic pain Other Notes: HTN; HLD # of Emergency department Answers: 1-2 visits in the last 6 months Social determinants Answers: Mental health diagnosis (anxiety, depression, pers onality disorders, etc.) Score: 9 Date Signed: 06/14/2018 04:05 PM Electronically Signed By:Lore Muñiz RN Case Management Discharge Plan Note Case Management Discharge Discharge Order Complete? Answers: Yes Patient to Obtain Answers: Independently Medications Transportation Arranged Answers: Taxi - Voucher Discharge Comments Notes: 06/14/2018 Case Management Note Provided taxi voucher. Left VM for Stacy Vera, care specialist for PCP office notifying of discharge and requesting PCP appointment. No further case management d/c needs identified. Case Management d/c: independent with follow up as directed. Date Signed: 06/14/2018 04:08 PM Electronically Signed By:Lore Muñiz RN Intervention Information Intervention Type:Cab Vouchers Date of Service:06/14/2018 04:05 PM Patient Type:Observation Staff Member:BENEDICT Muñiz, Lore Hours: Discipline: Severity: Comment:at RN request
--- NOTE | 2018-06-14 16:49 | PDCARST ---
CAR Stress Test Results Type of Stress Test: Lexiscan stress test Indication: cp Description of Procedure: After informed consent was obtained, pt was established to ECG, blood pressure, HR and oximetry monitoring. STRESS EKG AND HEMODYNAMIC DATA. Resting heart rate: 56 BPM. Resting ECG: SR. Resting blood pressure: 122/74 mmHg. O2 saturation at rest: 94%. Peak heart rate: 93 BPM. Peak blood pressure: 108/70 mmHg. Arrhythmias: none. Symptoms: The patient experienced no typical symptoms of angina during stress or recovery. Stress/Infusion ECG: No change in rhythm with no significant ST/T wave changes. Stress/infusion O2 saturation: 96% Impression: Uneventful Lexiscan infusion. Conclusion: Await nuclear images.
--- NOTE | 2018-06-14 21:42 | GDS ---
[f rep st] DISCHARGE SUMMARY DISCHARGE DIAGNOSES: 1. History of supraventricular tachycardia. 2. Chest pain with negative workup. 3. Vasovagal episode with 9-second pause that occurred during venipuncture. 4. Hypertension. 5. Supraventricular tachycardia. 6. Posttraumatic stress disorder. 7. Depression. 8. Traumatic brain injury. 9. Postconcussion syndrome. 10. Fibromyalgia. HOSPITAL COURSE: Please see admission history and physical by Dr. Jacey Quan. The patient was adm itted with chest pain sort of all over. Workup revealed a nonischemic EKG, negative troponins x3. S he had a CT PE negative for pulmonary embolism or other acute pulmonary process. She had a stress te st that was unremarkable. During a blood draw, the patient had a vasovagal episode with bradycardia and a 9-second pause. She has a longstanding history of vasovagal episodes in response to blood draw s, and this is consistent with that. She is discharged home with unchanged medication regimen. She has outpatient followup with Dr. Chawla, whom she knows well. Please note, the patient did have a 9-second pause while here during this vasovagal episode. This oc curred during a Holter monitor. This should not automatically prompt a pacemaker installation in thi s patient. /[id number]/MODL
--- NOTE | 2018-06-16 07:47 | CPEKG ---
Test Reason : OPEN Blood Pressure : / mmHG Vent. Rate : 056 BPM Atrial Rate : 055 BPM P-R Int : 200 ms QRS Dur : 094 ms QT Int : 479 ms P-R-T Axes : 022 065 042 degrees QTc Int : 463 ms Sinus rhythm Confirmed by Cornelio Orta ([id number]) on 06/16/2018 7:46:01 AM Referred By: Cornelio Orta Confirmed By:Cornelio Orta
== END 2018-06-14 16:35 | disposition home or self-care (01) ==
LOC: EDUNIT# → F2N 18:19
PROVIDERS: ADMIT Internal Medicine; ATTEND Internal Medicine
DX: R07.9 Chest pain, unspecified (principal); R55 Syncope and collapse; I47.1 Supraventricular tachycardia; I10 Essential (primary) hypertension; F43.12 Post-traumatic stress disorder, chronic; F32.9 Major depressive disorder, single episode, unspecified; Z87.820 Personal history of traumatic brain injury; F07.81 Postconcussional syndrome; M79.7 Fibromyalgia; E78.5 Hyperlipidemia, unspecified; K44.9 Diaphragmatic hernia without obstruction or gangrene; K21.9 Gastro-esophageal reflux disease without esophagitis; F41.9 Anxiety disorder, unspecified; F44.81 Dissociative identity disorder; E66.09 Other obesity due to excess calories; Z68.30 Body mass index [BMI] 30.0-30.9, adult
CPT/HCPCS: 71045; 71275; 78452; 93005; 93017; 96361; 96372; 96374; 99285; A9500; G0378; J0461; J1650; J2550; J2785; Q9967; 84484-ER

== ENCOUNTER → 2018-06-27 | Outpatient (CLI) | payer OTHER, MEDICAID | LOC: FIMAGING 13:14 | PROVIDERS: ATTEND Family Medicine | DX: Z12.31 Encounter for screening mammogram for malignant neoplasm of breast (principal); Z80.3 Family history of malignant neoplasm of breast ==